=== PATIENT | male | born 1965 | race Caucasian/White ===

== ENCOUNTER 2016-06-03 14:00 | Outpatient (CLI) | payer BC | END 2016-06-03 14:30 | disposition home or self-care (01) | LOC: SLEEP 14:00 | PROVIDERS: ATTEND Internal Medicine Cardiovascular Disease | DX: G47.33 Obstructive sleep apnea (adult) (pediatric) (principal) ==

== ENCOUNTER → 2016-06-03 | Outpatient (CLI) | payer BC ==
--- NOTE | 2016-06-07 14:06 | ECHOCARDIOGRAPHY REPORT ---
DATE OF SERVICE: 06/03/2016 TEST DATE: 06/03/16 MEASUREMENTS: LVID end diastolic 4.5. IVS thickness 1.2. LVPW thickness 1.2. Left atrial diameter 4.0. Ejection fraction 60%. FINDINGS: 1. Technical quality is good. 2. The left ventricle is normal in size with mild left ventricular hypertrophy noted diffusely. Systolic function appears to be normal. Estimated ejection fraction is 60%. 3. The left atrium is mildly dilated. No clot or thrombus were seen within the left atrium. 4. The right atrium and right ventricle are normal in size. No clot or thrombus were seen within the right side. 5. Mitral valve is normal in morphology with mild mitral regurgitation noted by color Doppler flow. No mitral valve prolapse. No mitral valve stenosis. 6. Aortic valve is trileaflet with normal opening and closing pattern. No significant aortic stenosis or regurgitation was seen. 7. Tricuspid valve is normal in morphology with mild tricuspid regurgitation noted by color Doppler flow. Doppler echo of the tricuspid valve estimated pulmonary artery pressure of 25 plus right atrial pressure. 8. Pulmonic valve is functioning normally. 9. No pericardial effusion. CONCLUSION: 1. Normal left ventricular size and systolic function. Estimated ejection fraction is 60%. 2. Mild mitral and tricuspid regurgitation. 3. Estimated pulmonary artery pressure of 30-35 mmHg. 4. Mildly dilated left atrium. Job ID: [id number] DocumentID: [id number] Dictated Date: 06/07/2016 10:04:45 Entry Driver Operator Date: 06/07/2016 10:33:54 Dictated By: BESSY HERNANDEZ MD
== END ==
LOC: CARD 14:44
PROVIDERS: ATTEND Physician Assistant
DX: I48.0 Paroxysmal atrial fibrillation (principal); Q21.1 Atrial septal defect; I10 Essential (primary) hypertension; R06.02 Shortness of breath
CPT/HCPCS: 93306

== ENCOUNTER → 2016-11-24 | Day surgery (SDC) | payer BC ==
[~2016-11-24] MED LIST: APIX5TAB PO; CLON0.252 PO; DILT180T9 PO; DRON400T2 PO; DULO60CA58 PO; FISH1CAP15 PO; METO-274 PO; MULT-1061 PO
--- OUTSIDE RECORDS SUMMARY | 2016-11-24 06:59 | XMS REPORT ---
Author Author DANYELLE SERRANO Organization [employer] Address Unknown Phone Unavailable Care Team Providers Care Rental Car Porter Name Role Phone DANYELLE SERRANO Unavailable Allergies No Known Allergies Problems Problem Type Condition Code Onset Dates Condition Status Problem Generalized anxiety disorder 300.02 Active Problem Major depressive disorder, recurrent episode, in partial or unspecified remission 296.35 Active Problem Major depressive disorder, recurrent episode, in full remission 296.36 Active Problem Other general medical examination for administrative purposes V70.3 Active Problem Major depressive disorder, single episode in full remission 296.26 Active Medications Medication Code System Code Instructions Start Date End Date Status Dosage Clonazepam [facility] [address]-18 0.5 MG Orally 2 times a day Jan 17, 2014 1 tablet Results No Known Results Summary Purpose [employer] Submission
--- OUTSIDE RECORDS SUMMARY | 2016-11-24 06:59 | XMS REPORT ---
Author Author DANYELLE SERRANO [facility] [employer] Address Unknown Phone Unavailable Care Team Providers Care Fire Control Mechanic Name Role Phone DANYELLE SERRANO Unavailable Allergies, Adverse Reactions, Alerts Substance Reaction Event Type Penicillin V Potassium hives Drug Allergy strawberrys hives Non Drug Allergy Problems Problem Type Condition Code Onset Dates Condition Status Problem Generalized anxiety disorder 300.02 Active Problem Major depressive disorder, recurrent episode, in partial or unspecified remission 296.35 Active Problem Major depressive disorder, recurrent episode, in full remission 296.36 Active Assessment TRINIDAD (generalized anxiety disorder) F41.1 Active Assessment Major depression, recurrent, full remission F33.42 Active Problem Other general medical examination for administrative purposes V70.3 Active Problem Major depressive disorder, single episode in full remission 296.26 Active Medications Medication Code System Code Instructions Start Date End Date Status Dosage Aspirin [facility] [address]-00 325 MG Orally Twice a day Jan 17, 2014 1 Tablet by Oral route 1 time per day Clonazepam [facility]AM[facility] [address]-82 0.5 MG Orally 2 times a day Jan 17, 2014 1 tablet Metoprolol Succinate ER [facility]AMED [facility] [address]-41 100 MG Orally Once a day 1 tablet Multivitamin [facility] NAMED [facility] [address]42[address] Jan 17, 2014 1 Tablet by Oral route 1 time per day Coenzyme Q10 [facility] [address] 100 MG Orally Once a day April 16, 2014 1 capsule Diltiazem HCl ER [facility] NAMED [facility] [address]-59 180 MG Orally Once a day 1 capsule on an empty stomach in the morning Cymbalta [facility] [address]-78 60 MG Orally Once a day April 16, 2014 1 capsule Multaq [facility] NAM[facility] [address]-03 400 MG Orally Twice a day 1 tablet with meals Fish Oil [facility] NAMED [facility] [address]-09 360-1,200 mg Jan 17, 2014 1 Capsule by Oral route 1 time per day Procedures Procedure Coding System Code Date Office Visit, Est Pt., Level 3 CPT-4 58165 Nov 19, 2014 Vital Signs Date/Time: Nov 19, 2014 Cardiac Monitoring Heart Rate 72 bpm Weight 225 lbs Height 68 in BMI 34.21 Index Blood Pressure Diastolic 80 mmHg Blood Pressure Systolic 125 mmHg Results No Known Results Summary Purpose [employer] Submission
--- OUTSIDE RECORDS SUMMARY | 2016-11-24 06:59 | XMS REPORT ---
Author Author LUIS ALBERTO ARRIAGA [facility] eClinicalWorks Address Unknown Phone Unavailable Care Team Providers Care Platform Supervisor Name Role Phone LUIS ALBERTO ARRIAGA CP Unavailable Allergies No Known Allergies Problems Problem Type Condition Code Onset Dates Condition Status Problem Generalized anxiety disorder 300.02 Active Problem Major depressive disorder, recurrent episode, in partial or unspecified remission 296.35 Active Problem Major depressive disorder, recurrent episode, in full remission 296.36 Active Assessment Major depression, recurrent, full remission F33.42 Active Problem Other general medical examination for administrative purposes V70.3 Active Problem Major depressive disorder, single episode in full remission 296.26 Active Medications Medication Code System Code Instructions Start Date End Date Status Dosage Clonazepam [facility] [address]-90 0.25 MG Orally 2 times a day prn anxiety Jan 17, 2014 1 tablet Results No Known Results Summary Purpose [employer] Submission
--- OUTSIDE RECORDS SUMMARY | 2016-11-24 06:59 | XMS REPORT ---
Author Author TAN WREN [facility] e[employer] Address Unknown Phone Unavailable Care Team Providers Care Materials And Processes Manager Name Role Phone TAN WREN Unavailable Allergies, Adverse Reactions, Alerts Substance Reaction Event Type Penicillin V Potassium hives Drug Allergy strawberrys hives Non Drug Allergy Problems Problem Type Condition Code Onset Dates Condition Status Problem Generalized anxiety disorder 300.02 Active Problem Major depressive disorder, recurrent episode, in partial or unspecified remission 296.35 Active Problem Major depressive disorder, recurrent episode, in full remission 296.36 Active Assessment Major depressive disorder, recurrent, in full remission F33.42 Active Assessment Generalized anxiety disorder F41.1 Active Problem Other general medical examination for administrative purposes V70.3 Active Problem Major depressive disorder, single episode in full remission 296.26 Active Medications Medication Code System Code Instructions Start Date End Date Status Dosage Multivitamin [facility] [address] Jan 17, 2014 1 Tablet by Oral route 1 time per day Aspirin [facility] [address]-55 325 MG Orally Twice a day Jan 17, 2014 1 Tablet by Oral route 1 time per day Toprol XL [facility] [address]-09 50 MG Orally Once a day April 17, 2013 take 2 tablets Multaq [facility] [address]-11 400 MG Orally Twice a day 1 tablet with meals Clonazepam [facility] [address]-63 0.5 MG Orally 2 times a day Jan 17, 2014 1 tablet Fish Oil [facility] [address]-05 360-1,200 mg Jan 17, 2014 1 Capsule by Oral route 1 time per day Metoprolol Succinate ER [facility] [address]-39 100 MG Orally Once a day 1 tablet Micardis [facility] [address]-67 80 MG Orally Once a day 1 tablet Diltiazem HCl ER [facility] [address]-29 180 MG Orally Once a day 1 capsule on an empty stomach in the morning Cymbalta [facility] [address]-35 60 MG Orally Once a day April 16, 2014 1 capsule Coenzyme Q10 [facility] [address] 100 MG Orally Once a day April 16, 2014 1 capsule Procedures Procedure Coding System Code Date Office Visit, Cristhian Pt., Level 3 CPT-4 01732 Feb 20, 2015 Vital Signs Date/Time: Feb 20, 2015 Cardiac Monitoring Heart Rate 64 bpm Weight 233.0 lbs Height 68 in BMI 35.42 Index Blood Pressure Diastolic 84 mmHg Blood Pressure Systolic 130 mmHg Results No Known Results Summary Purpose [employer]ClinicalWorks Submission
--- OUTSIDE RECORDS SUMMARY | 2016-11-24 06:59 | XMS REPORT ---
Author Author DAX Mae [facility] Address [address] [place] [address] Care Team Providers Care Nutritional Services Host Name Role Phone DAX Mae Unavailable PROBLEMS Type Condition ICD9-CM Code [id number] Code Onset Dates Condition Status SNOMED Code Problem Major depressive disorder, recurrent episode, in full remission 296.36 Active 32233301 Problem Generalized anxiety disorder 300.02 Active 27441283 Problem Major depressive disorder, single episode in full remission 296.26 Active 87013630 Problem Major depressive disorder, recurrent episode, in partial or unspecified remission 296.35 Active 16757691 Problem Other general medical examination for administrative purposes V70.3 Active 01910641 ALLERGIES Unknown Allergies SOCIAL HISTORY No smoking Hx information available PLAN OF CARE VITAL SIGNS MEDICATIONS Medication Instructions Dosage Frequency Start Date End Date Duration Status Clonazepam 0.25 MG Orally 2 times a day prn anxiety 1 tablet Jan, Active RESULTS No Results PROCEDURES No Known procedures IMMUNIZATIONS No Known Immunizations
--- OUTSIDE RECORDS SUMMARY | 2016-11-24 06:59 | XMS REPORT ---
Author Author Tu DAX [facility] Address [address] [place] [address] Care Team Providers Care Paper Bag Making Machinist Name Role Phone [email or web address] Unavailable PROBLEMS Type Condition ICD9-CM Code GMP69-CT Code Onset Dates Condition Status SNOMED Code Problem Major depressive disorder, single episode in full remission 296.26 Active 04124761 Problem Major depressive disorder, recurrent episode, in partial or unspecified remission 296.35 Active 16639319 Problem Other general medical examination for administrative purposes V70.3 Active 16243857 Problem Major depressive disorder, recurrent episode, in full remission 296.36 Active 29772484 Problem Generalized anxiety disorder 300.02 Active 65331827 ALLERGIES Unknown Allergies SOCIAL HISTORY No smoking Hx information available PLAN OF CARE Activity Details Follow Up 6 Months Reason: VITAL SIGNS Height 68 in 2016-03-04 Weight 231 lbs 2016-03-04 Heart Rate 68 bpm 2016-03-04 Respiratory Rate 18 2016-03-04 BMI 35.12 kg/m2 2016-03-04 Blood pressure systolic 132 mmHg 2016-03-04 Blood pressure diastolic 80 mmHg 2016-03-04 MEDICATIONS Medication Instructions Dosage Frequency Start Date End Date Duration Status Aspirin 325 MG Orally Twice a day 1 Tablet by Oral route 1 time per day 12h Jan, Active Multivitamin 1 Tablet by Oral route 1 time per day Jan, Active Fish Oil 360-1,200 mg 1 Capsule by Oral route 1 time per day Jan, Active Toprol XL 50 MG Orally Once a day take 2 tablets 24h Apr, Active Diltiazem HCl ER 180 MG Orally Once a day 1 capsule on an empty stomach in the morning 24h Active Clonazepam 0.25 MG Orally 2 times a day prn anxiety 1 tablet Jan, 30 days Active Cymbalta 60 MG Orally Once a day 1 capsule 24h Apr, 30 days Active Multaq 400 MG Orally Twice a day 1 tablet with meals 12h Active Metoprolol Succinate ER 100 MG Orally Once a day 1 tablet 24h Active RESULTS No Results PROCEDURES Procedure Date Ordered Related Diagnosis Body Site Office Visit, Est Pt., Level 3 Mar 04, 2016 IMMUNIZATIONS No Known Immunizations
--- OUTSIDE RECORDS SUMMARY | 2016-11-24 06:59 | XMS REPORT ---
Author Author DAX Mae [facility] Address [address] [place] [address] Care Team Providers Care Bundle Clerk Name Role Phone DAX Mae Unavailable PROBLEMS Type Condition ICD9-CM Code [id number] Code Onset Dates Condition Status SNOMED Code Problem Major depressive disorder, recurrent episode, in full remission 296.36 Active 79872440 Problem Generalized anxiety disorder 300.02 Active 21327849 Problem Major depressive disorder, single episode in full remission 296.26 Active 24691421 Problem Major depressive disorder, recurrent episode, in partial or unspecified remission 296.35 Active 54950345 Problem Other general medical examination for administrative purposes V70.3 Active 48060640 ALLERGIES Unknown Allergies SOCIAL HISTORY No smoking Hx information available PLAN OF CARE VITAL SIGNS MEDICATIONS Unknown Medications RESULTS No Results PROCEDURES No Known procedures IMMUNIZATIONS No Known Immunizations
--- OUTSIDE RECORDS SUMMARY | 2016-11-24 07:00 | XMS REPORT ---
Author Author DAX SANTIAGO [employer] Address Unknown Phone Unavailable Care Team Providers Care Cook Station Name Role Phone DAX SANTIAGO CP Unavailable Allergies, Adverse Reactions, Alerts Substance Reaction [...] Major depression, recurrent, full remission F33.42 Active Assessment TRINIDAD (generalized anxiety disorder) F41.1 Active Problem Other general medical examination for administrative purposes V70.3 Active Problem Major depressive disorder, single episode in full remission 296.26 Active Medications Medication Code System Code Instructions Start Date End Date Status Dosage Multaq [facility] [address]-93 400 MG Orally Twice a day 1 tablet with meals Multivitamin [facility] [address] Jan 17, 2014 1 Tablet by Oral route 1 time per day Cymbalta [facility] [address]-89 60 MG Orally Once a day April 16, 2014 1 capsule Aspirin [facility] [address]-91 325 MG Orally Twice a day Jan 17, 2014 1 Tablet by Oral route 1 time per day Toprol XL [facility] [address]-72 50 MG Orally Once a day April 17, 2013 take 2 tablets Metoprolol Succinate ER [facility] [address]-03 100 MG Orally Once a day 1 tablet Clonazepam [facility] [address]-90 0.25 MG Orally 2 times a day prn anxiety Jan 17, 2014 1 tablet Fish Oil [facility] [address]-95 360-1,200 mg Jan 17, 2014 1 Capsule by Oral route 1 time per day Diltiazem HCl ER [facility] [address]-53 180 MG Orally Once a day 1 capsule on an empty stomach in the morning Procedures Procedure Coding System Code Date Office Visit, Est Pt., Level 4 CPT-4 09699 September 02, 2015 Vital Signs Date/Time: September 02, 2015 Cardiac Monitoring Heart Rate 59 bpm Weight 232.4 lbs Height 68 in Blood Pressure Diastolic 85 mmHg Blood Pressure Systolic 124 mmHg Results No Known Results Summary Purpose eClinicalWorks Submission
--- OUTSIDE RECORDS SUMMARY | 2016-11-24 07:00 | XMS REPORT | Continuity of Care Document ---
Author Author [facility] Address Unknown Phone Unavailable Allergies Active Description Code Type Severity Reaction Onset Reported/Identified Relationship to Patient Clinical Status Yes Penicillins Drug Allergy 08/24/2010 Yes Penicillins Drug Allergy N/A N/A 08/24/2010 Medications Problems Date Dx Coded Attending Type Code Diagnosis Diagnosed By 05/13/2010 MIRIAN TROTTER DO 296.30 MAJOR DEPRESSIVE AFFECTIVE DISORDER RECURRENT EPISODE UNSPECIFIED DEGREE 05/13/2010 296.30 MAJOR DEPRESSIVE AFFECTIVE DISORDER RECURRENT EPISODE UNSPECIFIED DEGREE 05/13/2010 MIRIAN TROTTER DO 296.30 MAJOR DEPRESSIVE AFFECTIVE DISORDER RECURRENT EPISODE UNSPECIFIED DEGREE 05/13/2010 LUIS ALBERTO ARRIAGA MD 296.30 MAJOR DEPRESSIVE AFFECTIVE DISORDER RECURRENT EPISODE UNSPECIFIED DEGREE 05/13/2010 DANYELLE SERRANO APRN 296.30 MAJOR DEPRESSIVE AFFECTIVE DISORDER RECURRENT EPISODE UNSPECIFIED DEGREE 05/13/2010 296.30 MAJOR DEPRESSIVE AFFECTIVE DISORDER RECURRENT EPISODE UNSPECIFIED DEGREE 05/13/2010 DANYELLE SERRANO APRN 296.30 MAJOR DEPRESSIVE AFFECTIVE DISORDER RECURRENT EPISODE UNSPECIFIED DEGREE 06/03/2010 MIRIAN TROTTER DO 296.32 MO DEPRESSIVE RECURRENT MODERATE 06/03/2010 296.32 MO DEPRESSIVE RECURRENT MODERATE 06/03/2010 MIRIAN TROTTER DO 296.32 MO DEPRESSIVE RECURRENT MODERATE 06/03/2010 LUIS ALBERTO ARRIAGA MD 296.32 MO DEPRESSIVE RECURRENT MODERATE 06/03/2010 DANYELLE SERRANO APRN 296.32 MO DEPRESSIVE RECURRENT MODERATE 06/03/2010 296.32 MO DEPRESSIVE RECURRENT MODERATE 06/03/2010 DANYELLE SERRANO APRN 296.32 MO DEPRESSIVE RECURRENT MODERATE 08/24/2010 MIRIAN TROTTER DO 309.81 AN PTSD 08/24/2010 309.81 AN PTSD 08/24/2010 MIRIAN TROTTER DO 309.81 AN PTSD 08/24/2010 LUIS ALBERTO ARRIAGA MD 309.81 AN PTSD 08/24/2010 DANYELLE SERRANO APRN 309.81 AN PTSD 08/24/2010 309.81 AN PTSD 08/24/2010 DANYELLE SERRANO APRN 309.81 AN PTSD 09/02/2010 MIRIAN TROTTER DO 300.00 AN ANXIETY UNSPEC 09/02/2010 MIRIAN TROTTER DO 307.47 SI DYSSOMNIA NOS 09/02/2010 300.00 AN ANXIETY UNSPEC 09/02/2010 307.47 SI DYSSOMNIA NOS 09/02/2010 MIRIAN TROTTER DO 300.00 AN ANXIETY UNSPEC 09/02/2010 MRIIAN TROTTER DO 307.47 SI DYSSOMNIA NOS 09/02/2010 LUIS ALBERTO ARRIAGA MD 300.00 AN ANXIETY UNSPEC 09/02/2010 LUIS ALBERTO ARRIAGA MD 307.47 SI DYSSOMNIA NOS 09/02/2010 DANYELLE SERRANO APRN 300.00 AN ANXIETY UNSPEC 09/02/2010 DANYELLE SERRANO APRN 307.47 SI DYSSOMNIA NOS 09/02/2010 300.00 AN ANXIETY UNSPEC 09/02/2010 307.47 SI DYSSOMNIA NOS 09/02/2010 DANYELLE SERRANO APRN 300.00 AN ANXIETY UNSPEC 09/02/2010 DANYELLE SERRANO APRN 307.47 SI DYSSOMNIA NOS 08/03/2011 MIRIAN TROTTER DO V70.3 OTHER GENERAL MEDICAL EXAMINATION FOR ADMINISTRATIVE PURPOSES 08/03/2011 V70.3 OTHER GENERAL MEDICAL EXAMINATION FOR ADMINISTRATIVE PURPOSES 08/03/2011 MIRIAN TROTTER DO V70.3 OTHER GENERAL MEDICAL EXAMINATION FOR ADMINISTRATIVE PURPOSES 08/03/2011 LUIS ALBERTO ARRIAGA MD V70.3 OTHER GENERAL MEDICAL EXAMINATION FOR ADMINISTRATIVE PURPOSES 08/03/2011 DANYELLE SERRANO APRN V70.3 OTHER GENERAL MEDICAL EXAMINATION FOR ADMINISTRATIVE PURPOSES 08/03/2011 V70.3 OTHER GENERAL MEDICAL EXAMINATION FOR ADMINISTRATIVE PURPOSES 08/03/2011 DANYELLE SERRANO APRN V70.3 OTHER GENERAL MEDICAL EXAMINATION FOR ADMINISTRATIVE PURPOSES 09/08/2011 MIRIAN TROTTER DO 296.26 MO DEPRESSIVE SINGLE IN FULL REMISSION 09/08/2011 296.26 MO DEPRESSIVE SINGLE IN FULL REMISSION 09/08/2011 MIRIAN TROTTER DO 296.26 MO DEPRESSIVE SINGLE IN FULL REMISSION 09/08/2011 LUIS ALBERTO ARRIAGA MD 296.26 MO DEPRESSIVE SINGLE IN FULL REMISSION 09/08/2011 DANYELLE SERRANO APRN 296.26 MO DEPRESSIVE SINGLE IN FULL REMISSION 09/08/2011 296.26 MO DEPRESSIVE SINGLE IN FULL REMISSION 09/08/2011 DANYELLE SERRANO APRN 296.26 MO DEPRESSIVE SINGLE IN FULL REMISSION 04/17/2013 LUIS ALBERTO ARRIAGA MD 296.35 MO DEPRESSIVE RECURRENT IN PART OR UNSPECIFIED REMISSION 04/17/2013 DANYELLE SERRANO APRN 296.35 MO DEPRESSIVE RECURRENT IN PART OR UNSPECIFIED REMISSION 04/17/2013 DANYELLE SERRANO APRN 296.35 MO DEPRESSIVE RECURRENT IN PART OR UNSPECIFIED REMISSION 04/17/2013 BESSY HERNANDEZ MD Ot 278.00 OBESITY, NOS 04/17/2013 BESSY HERNANDEZ MD Ot 305.1 TOBACCO USE DISORDER 04/17/2013 BESSY HERNANDEZ MD Ot 401.9 HYPERTENSION NOS 04/17/2013 BESSY HERNANDEZ MD Ot 745.5 SECUNDUM ATRIAL SEPT DEF 04/17/2013 BESSY HERNANDEZ MD Ot 780.2 SYNCOPE AND COLLAPSE 04/17/2013 BESSY HERNANDEZ MD Ot 785.1 PALPITATIONS 04/17/2013 BESSY HERNANDEZ MD Ot 786.05 SHORTNESS OF BREATH 04/17/2013 EBSSY HERNANDEZ MD Ot 786.09 RESPIRATORY ABNORM NEC 04/17/2013 BESSY HERNANDEZ MD Ot 786.50 CHEST PAIN NOS 01/17/2014 DANYELLE SERRANO APRN 300.02 AN GEN ANXIETY 08/26/2014 Ot 278.00 08/26/2014 Ot 305.1 08/26/2014 Ot 401.9 08/26/2014 Ot 745.5 08/26/2014 Ot 780.2 08/26/2014 Ot 785.1 08/26/2014 Ot 786.05 08/26/2014 Ot 786.09 08/26/2014 Ot 786.50 09/09/2014 Ot 278.00 09/09/2014 Ot 305.1 09/09/2014 Ot 401.9 09/09/2014 Ot 745.5 09/09/2014 Ot 780.2 09/09/2014 Ot 785.1 09/09/2014 Ot 786.05 09/09/2014 Ot 786.09 09/09/2014 Ot 786.50 09/11/2014 MICHELINE ISSA Ot 401.9 09/11/2014 MICHELINE ISSA Ot 745.5 09/11/2014 MICHELINE ISSA Ot 785.1 09/11/2014 MICHELINE ISSA Ot 786.50 06/23/2015 Ot 278.00 OBESITY, NOS 06/23/2015 Ot 305.1 TOBACCO USE DISORDER 06/23/2015 Ot 401.9 HYPERTENSION NOS 06/23/2015 Ot 745.5 SECUNDUM ATRIAL SEPT DEF 06/23/2015 Ot 780.2 SYNCOPE AND COLLAPSE 06/23/2015 Ot 785.1 PALPITATIONS 06/23/2015 Ot 786.05 SHORTNESS OF BREATH 06/23/2015 Ot 786.09 RESPIRATORY ABNORM NEC 06/23/2015 Ot 786.50 CHEST PAIN NOS 06/23/2015 MICHELINE ISSA Ot 401.9 HYPERTENSION NOS 06/23/2015 MICHELINE ISSA Ot 745.5 SECUNDUM ATRIAL SEPT DEF 06/23/2015 MICHELINE ISSA Ot 785.1 PALPITATIONS 06/23/2015 MICHELINE ISSA Ot 786.50 CHEST PAIN NOS 05/19/2016 Ot 278.00 OBESITY, NOS 05/19/2016 Ot 305.1 TOBACCO USE DISORDER 05/19/2016 Ot 401.9 HYPERTENSION NOS 05/19/2016 Ot 745.5 SECUNDUM ATRIAL SEPT DEF 05/19/2016 Ot 780.2 SYNCOPE AND COLLAPSE 05/19/2016 Ot 785.1 PALPITATIONS 05/19/2016 Ot 786.05 SHORTNESS OF BREATH 05/19/2016 Ot 786.09 RESPIRATORY ABNORM NEC 05/19/2016 Ot 786.50 CHEST PAIN NOS 05/19/2016 MICHELINE ISSA Ot 401.9 HYPERTENSION NOS 05/19/2016 MICHELINE ISSA Ot 745.5 SECUNDUM ATRIAL SEPT DEF 05/19/2016 MICHELINE ISSA Ot 785.1 PALPITATIONS 05/19/2016 MICHELINE ISSA Ot 786.50 CHEST PAIN NOS 06/03/2016 DAVID GUPTA, BESSY Bravo Ot G47.33 OBSTRUCTIVE SLEEP APNEA (ADULT) (PEDIATR 06/03/2016 Ot 278.00 OBESITY, NOS 06/03/2016 Ot 305.1 TOBACCO USE DISORDER 06/03/2016 Ot 401.9 HYPERTENSION NOS 06/03/2016 Ot 745.5 SECUNDUM ATRIAL SEPT DEF 06/03/2016 Ot 780.2 SYNCOPE AND COLLAPSE 06/03/2016 Ot 785.1 PALPITATIONS 06/03/2016 Ot 786.05 SHORTNESS OF BREATH 06/03/2016 Ot 786.09 RESPIRATORY ABNORM NEC 06/03/2016 Ot 786.50 CHEST PAIN NOS 06/03/2016 MICHELINE ISSA Ot 401.9 HYPERTENSION NOS 06/03/2016 MICHELINE ISSA Ot 745.5 SECUNDUM ATRIAL SEPT DEF 06/03/2016 MICHELINE ISSA Ot 785.1 PALPITATIONS 06/03/2016 MICHELINE ISSA Ot 786.50 CHEST PAIN NOS 06/04/2016 MICHELINE ISSA Ot I10 ESSENTIAL (PRIMARY) HYPERTENSION 06/04/2016 MICHELINE ISSA Ot I48.0 PAROXYSMAL ATRIAL FIBRILLATION 06/04/2016 MICHELINE ISSA Ot Q21.1 ATRIAL SEPTAL DEFECT 06/04/2016 MICHELINE ISSA Ot R06.02 SHORTNESS OF BREATH 06/04/2016 DAVID GUPTA, BESSY Bravo Ot G47.33 OBSTRUCTIVE SLEEP APNEA (ADULT) (PEDIATR 06/16/2016 MICHELINE ISSA Ot I10 ESSENTIAL (PRIMARY) HYPERTENSION 06/16/2016 MICHELINE ISSA Ot I48.0 PAROXYSMAL ATRIAL FIBRILLATION 06/16/2016 MICHELINE ISSA Ot Q21.1 ATRIAL SEPTAL DEFECT 06/16/2016 MICHELINE ISSA Ot R06.02 SHORTNESS OF BREATH Procedures Code [place] [address] PSYCH PHARM MGMT 02/10/2012 Results Encounters ACCT No. Visit Date/Time Discharge Status Pt. Type Provider Facility Loc./Unit Complaint [id number] 01/17/2014 09:12:00 01/17/2014 23: 59:59 LISA Outpatient DANYELLE SERRANO APRN [id number] 10/18/2013 09:03:00 10/18/2013 23: 59:59 CLS Outpatient DANYELLE SERRANO APRN [id number] 04/17/2013 14:05:00 04/17/2013 23: 59:59 CLS Outpatient LUIS ALBERTO ARRIAGA MD [id number] 11/04/2012 09:49:00 11/04/2012 23: 59:59 CLS Outpatient MIRIAN TROTTER DO [id number] 01/24/2012 11:16:00 01/24/2012 23: 59:59 [place] [id number] 09/08/2011 10:53:00 09/08/2011 23: 59:59 CLS Outpatient [id number] 06/24/2012 13:27:00 Document Registration [id number] 06/03/2016 14:44:00 2016 23:59:59 CLS Outpatient MICHELINE ISSA [facility] CARD I48.0 [id number] 06/03/2016 14:00:00 2016 14:30:00 DIS Outpatient BESSY HERNANDEZ MD [facility] SLEEP G47.33 [id number] 09/09/2014 11:45:00 2014 23:59:59 CLS Outpatient MICHELINE ISSA [facility] CARD ASD,CP,HTN,PALPITATIONS [id number] 01/17/2013 09:22:00 2013 00:01:00 DIS Outpatient BESSY HERNANDEZ MD [facility] CARD CHEST PAIN,DYSPNEA,PALPITATION, SYNCOPE [id number] 04/18/2013 09:00:00 Document Registration
--- NOTE | 2016-11-24 10:11 | Anesthesia-Procedure Note ---
Procedure Start/Stop Time Date of Procedure: Nov 24, 2016 Start Time: 09:43 Stop Time: 10:02 Procedures/Interventions Procedures Called to warehouse laborer to sedate patient for BLU procedure. Chart reviewed and vital signs monitored thru out, see Nurses notes for vitals. A total of 100mcg of fentanyl and 150 mg of propofol was given thru out procedure. Patient tolerated well, vital signs stable with patent airway. Care returned to warehouse laborer staff at procedure end. ASA 3, MP 3, TMD-2. KAVITHA TAMEZ CRNA Nov 24, 2016 10:11
== END | disposition home or self-care (01) ==
LOC: SDC 06:56
PROVIDERS: ATTEND Internal Medicine Cardiovascular Disease
DX: Z53.9 Procedure and treatment not carried out, unspecified reason (principal)

== ENCOUNTER → 2016-12-08 | Outpatient (CLI) | payer BC ==
[~2016-12-08] VITALS: Ht 170.2 cm; Wt 103.4 kg
[~2016-12-08] MED LIST changes: +CATHETER FLUSH 10 ML SYR IV PRN; +REGADENOSON 0.4 MG/5 ML SYR (LEXISCAN) IV ONE; +meTOprolol 5 MG/5 ML (LOPRESSOR) VIAL IV ONE; +meTOprolol 5 MG/5 ML (LOPRESSOR) VIAL ONE
[2016-12-08 14:03] VITALS: BP 139/95
[2016-12-08 14:05] VITALS: BP 140/93
[2016-12-08 14:09] VITALS: BP 143/106
--- NOTE | 2016-12-09 07:20 | STRESS TEST ---
DATE OF SERVICE: 12/08/2016 LEXISCAN MYOVIEW STRESS TEST REPORT Baseline heart rate is 132. Baseline blood pressure is 120/70. Baseline EKG is atrial fibrillation with nonspecific T-wave abnormality. In summary, the patient received 10.21 mCi of technetium-99 Myoview and the resting images were obtained and then the patient received 0.4 mg of Lexiscan followed by 29.6 mCi of technetium-99 Myoview. At the end of the test, due to the tachycardia, the patient was given IV Lopressor. The resting and stressed images were reviewed and compared in the short axis, horizontal long axis, and vertical long axis views. Review of the images showed mild decreased uptake at the mid to apical anterolateral wall, which appeared to be fixed, no significant ischemia was noted. SSS is 6, SDS 1. TID value 1.21. On the gated images, the left ventricle appeared to be normal size with normal contractility, calculated ejection fraction 54%, gated images are unreliable due to underlying atrial fibrillation. CONCLUSION: 1. The patient tolerated Lexiscan well. 2. Baseline atrial fibrillation persisted throughout the test. 3. Mild decreased uptake at the mid to apical anterolateral wall, which appeared to be fixed, no significant ischemia was noted. 4. TID value is in the upper limits of 1.21. 5. Normal left ventricular size with normal contractility. Calculated ejection fraction 54%, gated images are unreliable due to underlying atrial fibrillation. Job ID: [id number] DocumentID: [id number] Dictated Date: 12/08/2016 17:46:59 Early Education Teacher Date: 12/08/2016 22:38:56 Dictated By: BESSY HERNANDEZ MD
== END ==
LOC: CARD 11:58
PROVIDERS: ATTEND Internal Medicine Cardiovascular Disease
DX: I48.0 Paroxysmal atrial fibrillation (principal); I10 Essential (primary) hypertension; R07.89 Other chest pain; Q21.1 Atrial septal defect
CPT/HCPCS: 78452; 93017

== ENCOUNTER 2017-03-28 14:40 | Inpatient (IN) | payer BC ==
[2017-03-28] VITALS (10 sets, daily range): BP systolic 124–181; BP diastolic 79–123
[~2017-03-28] VITALS: Ht 170.2 cm; Wt 103.1 kg
[~2017-03-28 14:40] MED LIST changes: -CATHETER FLUSH 10 ML SYR IV PRN; -METO-274 PO; +METO-395 PO; -REGADENOSON 0.4 MG/5 ML SYR (LEXISCAN) IV ONE; -meTOprolol 5 MG/5 ML (LOPRESSOR) VIAL IV ONE; -meTOprolol 5 MG/5 ML (LOPRESSOR) VIAL ONE
[2017-03-28] MEDS ORDERED: SOTA120T PO (15:55)
[2017-03-28] MEDS ORDERED: OMEG-160 PO (15:55)
[2017-03-28] MEDS ORDERED: METO-370 PO (15:55)
[2017-03-28] MEDS ORDERED: ACETAMINOPHEN 325 MG TABLET/CAPLET (TYLENOL) PO NR (16:45)
[2017-03-28] MEDS: APIXABAN 5 MG (ELIQUIS) TABLET PO SCH (20:58)
[2017-03-28] MEDS: clonazePAM 0.5 MG (KlonoPIN) TAB PO SCH (20:58)
[2017-03-28] MEDS: SOTALOL 80 MG (BETAPACE) TAB PO SCH (20:59)
[2017-03-28] MEDS ORDERED: NON-FORMULARY MEDICATION 1 EA EA (Clonazepam 0.25 MG) PO SCH (21:00)
[2017-03-29] VITALS (23 sets, daily range): BP systolic 99–151; BP diastolic 67–102
[2017-03-29 04:59] LABS: HEMOGLOBIN 15.3 G/DL (13.3-17.7); MEAN PLATELET VOLUME 10.2 FL (7.4-10.4); RED BLOOD COUNT 4.91 10^6/uL (4.35-5.85); RED CELL DISTRIBUTION WIDTH 13.6 % (10.0-14.5); WHITE BLOOD COUNT 4.5 10^3/uL (4.3-11.0)
[2017-03-29 05:14] LABS: ALANINE AMINOTRANSFERASE 79 U/L (0-55); ALBUMIN 3.9 GM/DL (3.2-4.5); ALKALINE PHOSPHATASE 81 U/L (40-136); BUN/CREATININE RATIO 10; CALCIUM 9.2 MG/DL (8.5-10.1); CARBON DIOXIDE 27 MMOL/L (21-32); CHLORIDE 103 MMOL/L (98-107); CREATININE SERUM 0.82 MG/DL (0.60-1.30); GFR ESTIMATED > 60; GLUCOSE 104 MG/DL (70-105); MAGNESIUM 2.2 MG/DL (1.8-2.4); PHOSPHORUS 3.8 MG/DL (2.3-4.7); POTASSIUM 3.4 MMOL/L (3.6-5.0); SODIUM 143 MMOL/L (135-145); TOTAL PROTEIN 7.1 GM/DL (6.4-8.2)
[2017-03-29] MEDS: POTASSIUM CL 10MEQ/50ML IVPB 50 ML IV SCH ×3 (05:21→12:12)
[2017-03-29] MEDS: MAGNESIUM 1 GM/100 ML IVPB 100 ML IV SCH (05:21)
[2017-03-29] MEDS: KCL 20 MEQ TAB (K-DUR) PO SCH (05:21)
[2017-03-29] MEDS ORDERED: OMEGA 3 (FISH OIL) 1000 MG CAP PO SCH (07:00)
[2017-03-29] MEDS ORDERED: KCL 10 MEQ TAB (MICRO K) PO NR (08:00)
--- NOTE | 2017-03-29 08:21 | Cardiology History & Physical ---
HPI-Cardiology Cardiology Consultation Date of Consultation 03/29/17 Date of Admission Time Seen by Provider: 08:16 Indication: aFIB HPI Patient is a 51 y/o male with history of PAF, HTN, HLP. Had been following with Dr. Menendez for further management of atrial fibrillation. Underwent BLU and cardioversion done at on 2017 after being initiated on Sotalol. Presented to our office yesterday for follow up. C/o increased fatigue over the past several days. Denies any CP or palpitation. Had EKG done in office revealing atrial fibrillation with HR in the 120's. Patient was admitted to ICU for further management. Upon interviewing the patient, he is denying any CP or dyspnea at this time. Continues to be in atrial fibrillation, although HR is better controlled today. EKG reveals borderline prolonged QT. This is Dr. Johnson, Mr. Rocha is 51 years old gentleman with paroxysmal atrial fibrillation, had multiple cardioversion, has been on sotalol with cardioversion last week, seen in my office yesterday and noted to be in atrial fibrillation with rapid ventricular response, he was admitted to the hospital to increase sotalol dose and possible electrical cardioversion. This morning he was feeling well. Heart rate is better controlled. Denied any chest pain or shortness of breath. No palpitation. PMH-Cardiology Immunizations Up To Date Date of Pneumonia Vaccine: Mar 23, 2017 Date of Influenza Vaccine: Nov 16, 2016 Seasonal Allergies Seasonal Allergies: No Surgeries Yes (Atrial Spetum Defect repair) Respiratory Yes Cardiovascular Yes (Atrial spetum defect) Atrial Fibrillation, Hypertension Neurological No Genitourinary No Gastrointestinal Yes Gastroesophageal Reflux, Hiatal Hernia Musculoskeletal No Endocrine No HEENT No Loss of Vision: Denies Cancer No Psychosocial Yes Anxiety Integumentary No Blood Transfusions No Adverse Rxn to Transfusion: No Social History Patient Social History Marrital Status: Alcohol Use: Occasionally Uses Recreational Drug Use: No Smoking: Never smoker Recent Foreign Travel: No Contact w/other who traveled: No Recent Infectious Disease Expo: Yes Family Hx Significant Family History: No Pertinent Family Hx ROS-Cardiology Review of Systems General: No Chills, No Night Sweats, Fatigue, No Malaise HEENT: No Visual Changes, No Dysphasia Pulmonary: Dyspnea, No Cough Cardiovascular: No: Chest Pain, Palpitations, Paroxysmal Noc. Dyspnea, Edema Gastrointestinal: No: Nausea, Vomiting, Abdominal Pain, Diarrhea, Constipation Genitourinary: No Dysuria, No Frequency Musculoskeletal: No: neck pain, back pain Neurological: No: Weakness, Numbness, Change in speech, Confusion Home Medications & Allergies Allergies: Coded Allergies: Penicillins (Verified Allergy, Unknown, 11/24/16) enalapril (Verified Allergy, Unknown, 11/24/16) Home Medication List Reviewed: Yes Exam-Cardiology Vital Signs Vital Signs Date Time Temp Pulse Resp B/P (MAP) Pulse Ox O2 Delivery O2 Flow Rate FiO2 03/29/17 12:00 97.6 03/29/17 12:00 98 Room Air 03/29/17 12:00 127 13 106/67 (80) Exam General Appearance: Alert, Oriented X3, Cooperative, No Acute Distress HEENT: Atraumatic, PERRLA Respiratory: Clear to Auscultation, Normal Air Movement Cardiovascular: Other (irregularly irregular) Abdominal: Normal Bowel Sounds, Soft, No Tenderness Extremities: No Clubbing, No Cyanosis, No Edema, Normal Pulses Skin: No Rashes, No Significant Lesion Neuro: Normal Gait, Normal Speech, Cranial Nerves 3-12 NL Psych/Mental Status: Mental Status NL, Mood NL Results Labs Labs Laboratory Tests 03/29/17 04:45: White Blood Count 4.5, Red Blood Count 4.91, Hemoglobin 15.3, Hematocrit 42, Mean Corpuscular Volume 86, Mean Corpuscular Hemoglobin 31, Mean Corpuscular Hemoglobin Concent 36, Red Cell Distribution Width 13.6, Platelet Count 184, Mean Platelet Volume 10.2, Sodium Level 143, Potassium Level 3.4L, Chloride Level 103, Carbon Dioxide Level 27, Anion Gap 13, Blood Urea Nitrogen 8, Creatinine 0.82, Estimat Glomerular Filtration Rate > 60, BUN/Creatinine Ratio 10, Glucose Level 104, Calcium Level 9.2, Phosphorus Level 3.8, Magnesium Level 2.2, Total Bilirubin 1.0, Aspartate Amino Transf (AST/SGOT) 54H, Alanine Aminotransferase (ALT/SGPT) 79H, Alkaline Phosphatase 81, Total Protein 7.1, Albumin 3.9 A/P-Cardiology Admission Diagnosis Afib with RVR HTN NATHALIE Obesity Assessment/Plan Atrial fibrillation with RVR- has been following with Dr. Menendez. Most recently , underwent sotalol initiation last week followed by cardioversion done by on March 23, 2017. Return to clinic yesterday for follow up, EKG revealed Afib with HR in the 120's. Patient was admitted to ICU and started on Sotalol 160mg BID. EKG reveals borderline QT prolongation, replace K+, continue to monitor closely. Continue on Eliquis. Hypokalemia, received 40 mEq of potassium. Continue to monitor BMP and magnesium. Hypertension, controlled, continue current medications and continue to monitor. NATHALIE- patient uses CPAP, continue to monitor. Intolerance to angiotensin-converting enzyme inhibitors with cough. Dyspnea, related to the palpitation. Reporting improvement. Continue to monitor. History of atrial septal defect, [place] [address] Garg. History of atrial septal repair, BLU did not show any shunt Tobaccoism, patient chewed tobacco, he was educated and instructed on avoiding any tobacco product. Family history of coronary artery disease. Obesity, patient was educated on weight loss and exercise. This is Dona James PA-C as a scribe for Dr. Johnson. This is Dr. Johnson, I have seen and evaluated Mr. Rocha with Dona, interviewed the patient to perform physical examination, heart rate is irregular , lungs are clear. He is in atrial fibrillation with borderline tachycardia at this time, tolerating sotalol 160 mg twice daily. QT interval appeared to be 501. He was noted to be hypokalemic. Which will be replaced and monitored. I will evaluate metabolic profile and magnesium level in the morning, continue to monitor QT interval. Possible electrical cardioversion if he did not convert spontaneously. Continue on oral anticoagulation. I reviewed the above note and agree with the current scribe. I made few minor modification using Italic Font Clinical Quality Measures DVT/VTE Risk/Contraindication: Risk Factor Score Per Nursin RFS Level Per Nursing on Admit: 4+=Very High DONA BORJAS Mar 29, 2017 08:21 BESSY JOHNSON MD Mar 29, 2017 14:29
[2017-03-29] MEDS ORDERED: NON-FORMULARY MEDICATION 1 EA EA (Duloxetine HCl 60 MG) PO SCH (09:00)
[2017-03-29] MEDS ORDERED: NON-FORMULARY MEDICATION 1 EA EA (Diltiazem HCl (Diltiazem ER) 180 MG) PO SCH (09:00)
[2017-03-29] MEDS ORDERED: KCL 20 MEQ TAB (K-DUR) PO ONE (09:00)
[2017-03-29] MEDS: clonazePAM 0.5 MG (KlonoPIN) TAB PO SCH ×2 (09:06→21:00)
[2017-03-29] MEDS: APIXABAN 5 MG (ELIQUIS) TABLET PO SCH ×2 (09:06→21:00)
[2017-03-29] MEDS: DILTIAZEM 180 MG (CARDIZEM CD) CAP PO SCH (09:07)
[2017-03-29] MEDS: OMEGA 3 (FISH OIL) 1000 MG CAP PO SCH ×3 (09:07→17:24)
[2017-03-29] MEDS: DULoxetine 30 MG (CYMBALTA) CAP PO SCH (09:07)
[2017-03-29] MEDS: SOTALOL 80 MG (BETAPACE) TAB PO SCH ×2 (09:08→21:10)
[2017-03-30] VITALS (24 sets, daily range): BP systolic 108–139; BP diastolic 65–97
[2017-03-30 04:15] LABS: BASOPHILS % (AUTO) 0 % (0-10); EOSINOPHILS # (AUTO) 0.2 10^3/uL (0.0-0.3); EOSINOPHILS % (AUTO) 4 % (0-10); HEMATOCRIT 41 % (40-54); HEMOGLOBIN 14.9 G/DL (13.3-17.7); LYMPHOCYTES % (AUTO) 39 % (12-44); MEAN CORPUSCULAR HEMOGLOBIN 31 PG (25-34); MEAN CORPUSCULAR HGB CONC 36 G/DL (32-36); MEAN CORPUSCULAR VOLUME 86 FL (80-99); MEAN PLATELET VOLUME 10.2 FL (7.4-10.4); MONOCYTES # (AUTO) 0.6 X 10^3 (0.0-1.0); MONOCYTES % (AUTO) 12 % (0-12); NEUTROPHILS # (AUTO) 2.3 X 10^3 (1.8-7.8); NEUTROPHILS % (AUTO) 45 % (42-75); PLATELET COUNT 183 10^3/uL (130-400); RED BLOOD COUNT 4.78 10^6/uL (4.35-5.85); RED CELL DISTRIBUTION WIDTH 13.4 % (10.0-14.5); WHITE BLOOD COUNT 5.1 10^3/uL (4.3-11.0)
[2017-03-30 04:34] LABS: BUN/CREATININE RATIO 11; CALCIUM 9.5 MG/DL (8.5-10.1); CARBON DIOXIDE 28 MMOL/L (21-32); CHLORIDE 105 MMOL/L (98-107); CREATININE SERUM 0.85 MG/DL (0.60-1.30); GFR ESTIMATED > 60; GLUCOSE 102 MG/DL (70-105); MAGNESIUM 2.3 MG/DL (1.8-2.4); PHOSPHORUS 3.9 MG/DL (2.3-4.7); POTASSIUM 3.7 MMOL/L (3.6-5.0); SODIUM 140 MMOL/L (135-145)
[2017-03-30] MEDS: MAGNESIUM 1 GM/100 ML IVPB 100 ML IV SCH (04:45)
[2017-03-30] MEDS: POTASSIUM CL 10MEQ/50ML IVPB 50 ML IV SCH (04:45)
[2017-03-30] MEDS: KCL 20 MEQ TAB (K-DUR) PO SCH (04:46)
[2017-03-30] MEDS: DILTIAZEM 180 MG (CARDIZEM CD) CAP PO SCH (08:24)
[2017-03-30] MEDS: clonazePAM 0.5 MG (KlonoPIN) TAB PO SCH ×2 (08:24→21:14)
[2017-03-30] MEDS: SOTALOL 80 MG (BETAPACE) TAB PO SCH ×2 (08:24→21:55)
[2017-03-30] MEDS: DULoxetine 30 MG (CYMBALTA) CAP PO SCH (08:24)
[2017-03-30] MEDS: OMEGA 3 (FISH OIL) 1000 MG CAP PO SCH ×3 (08:24→17:55)
[2017-03-30] MEDS: APIXABAN 5 MG (ELIQUIS) TABLET PO SCH ×2 (08:24→21:14)
--- NOTE | 2017-03-30 08:24 | Cardiology Progress Note ---
Subjective Date Seen by Provider: Mar 30, 2017 Time Seen by Provider: 08:20 Subjective/Events-last exam Patient is in bed, complaining of palpitations, on and off, no chest pain or shortness of breath Review of Systems General: No Chills, No Night Sweats, No Fatigue, No Malaise, No Appetite, No Other HEENT: No Head Aches, No Visual Changes, No Eye Pain, No Ear Pain, No Dysphasia , No Sinus Congestion, No Post Nasal Drip, No Sore Throat, No Other Pulmonary: No Dyspnea, No Cough, No Pleuritic Chest Pain, No Other Cardiovascular: Palpitations, No: Chest Pain, Orthopnea, Paroxysmal Noc. Dyspnea, Edema, Lt Headedness, Other Objective-Cardiology Exam Last Set of Vital Signs Vital Signs 03/30/17 03/30/17 03/30/17 04:00 06:00 07:00 Temp 98.5 Pulse 91 Resp 20 B/P (MAP) 138/91 (107) Pulse Ox 95 O2 Delivery NIV CPAP Capillary Refill : I&O Intake and Output 03/30/17 00:00 Intake Total 2290 ml Output Total 3200 ml Balance -910 ml Intake Oral 2290 ml Output Urine Total 3200 ml # Bowel Movements 1 General: Alert, Oriented X3, Cooperative, No Acute Distress HEENT: Atraumatic, PERRLA Neck: Supple, No JVD Lungs: Clear to Auscultation, Normal Air Movement Heart: Normal S1, Normal S2, Other (a fib) Abdomen: Normal Bowel Sounds, Soft, No Tenderness Extremities: No Clubbing, No Cyanosis, No Edema, Normal Pulses Skin: No Rashes, No Significant Lesion Neuro: Normal Gait, Normal Speech, Cranial Nerves 3-12 NL Psych/Mental Status: Mental Status NL, Mood NL Results Lab Laboratory Tests 03/30/17 04:00 A/P-Cardiology Admission Diagnosis Afib with RVR HTN NATHALIE Obesity Assessment/Plan Atrial fibrillation with RVR- has been following with Dr. Menendez. Most recently , underwent sotalol initiation last week followed by cardioversion done by on March 23, 2017. Return to clinic earlier this week, EKG revealed Afib with HR in the 120's. Patient was admitted to ICU and started on Sotalol 160mg BID. still in A fib, planning for cardioversion today Hypokalemia, replaced and better today, continue to monitor Hypertension, controlled, continue current medications and continue to monitor. NATHALIE- patient uses CPAP, continue to monitor. Intolerance to angiotensin-converting enzyme inhibitors with cough. Dyspnea, related to the palpitation. Reporting improvement. Continue to monitor. History of atrial septal defect, [place] [address] Garg. History of atrial septal repair, BLU did not show any shunt Tobaccoism, patient chewed tobacco, he was educated and instructed on avoiding any tobacco product. Family history of coronary artery disease. Obesity, BMI 35, patient was educated on weight loss and exercise. Clinical Quality Measures DVT/VTE Risk/Contraindication: Risk Factor Score Per Nursin RFS Level Per Nursing on Admit: 4+=Very High BESSY HERNANDEZ MD Mar 30, 2017 08:24
--- NOTE | 2017-03-30 08:24 | Cardiac Procedure Note-CS/ASA ---
Pre-Procedure Note Pre-Op Procedure Note H&P Reviewed The H&P was reviewed, patient examined and no changes noted. Date H&P Reviewed: Mar 30, 2017 Time H&P Reviewed: 08:24 Conscious Sedation Pre-Proced Time Reviewed: 08:24 ASA Class: 3 Airway Mallampati Classification: (solomon appropriate class) I. II. III, IV Lungs Heart ASA score ASA 1: a normal healthy patient ASA 2: a patient with a mild systemic disease (mid diabetes, controlled hypertension, obesity x ASA 3: a patient with a severe systemic disease that limits activity (angina , COPD, prior Myocardial infarction) ASA 4: a patient with an incapacitating disease that is a constant threat to life (CHF, renal failure) ASA 5: a moribund patient not expected to survive 24 hrs. (ruptured aneurysm) ASA 6: a declared brain patient whose organs are being harvested. For emergent operations, add the letter E after the classification Grade 3 Sedation Plan: Analgesia, Amnesia, Plan communicated to team members, Discussed options with patient/fam, Discussed risks with patient/fam Note The patient is an appropriate candidate to undergo the planned procedure, sedation, and anesthesia. The patient immediately re-assessed prior to indication. BESSY HERNANDEZ MD Mar 30, 2017 08:24
[2017-03-30] MEDS ORDERED: MIDAZOLAM 2 MG/2 ML (VERSED) VIAL ONE (09:44)
[2017-03-30] MEDS ORDERED: proPOfol 200 MG/20 ML (DIPRIVAN) VIAL IV ONE (09:44)
[2017-03-30] MEDS ORDERED: NS IV 500 ML 500 ML ONE (09:46)
[2017-03-30] MEDS ORDERED: meTOprolol 5 MG/5 ML (LOPRESSOR) VIAL ONE (10:06)
--- NOTE | 2017-03-30 10:13 | Progress Note-Standard ---
Standard Progress Note Progress Notes/Assess & Plan Date Seen by Provider: Mar 30, 2017 Time Seen by Provider: 09:45 Final Diagnosis Called to ICU for Cardioversion. Brief history obtained from patient. Patient sedated with 2mg Versed and 100mg of Propofol. Anesthesia Type:MAC. ASA 3. Spontaneous Respirations maintained throughout procedure. Tolerated well. ANDRES WALLIS CRNA Mar 30, 2017 10:13
[2017-03-30] MEDS ORDERED: meTOprolol 5 MG/5 ML (LOPRESSOR) VIAL IV ONE (10:15)
--- NOTE | 2017-03-30 11:33 | Cardiac Procedure Note ---
Cardiology Procedures Date of Procedure 03/30/17 Electrical cardioversion report After explained the procedure to the patient and his , signing consent, all pros and cons were explained. Anesthesia or cold for conscious sedation. Patient was sedated and received synchronized DC cardioversion is with 120 J, it was successful in terminating atrial fibrillation, within the minute patient returned to atrial fibrillation I delivered her second shock while patient was still sedated it was successful again. Patient continued to have back and forth atrial fibrillation and atrial flutter. Conclusion Successful electrical cardioversion, patient converted to sinus rhythm but failed to maintain sinus rhythm. Continue to be in and out of atrial fibrillation and flutter BESSY HERNANDEZ MD Mar 30, 2017 11:33
[2017-03-31] VITALS (23 sets, daily range): BP systolic 117–147; BP diastolic 74–104
[2017-03-31 04:13] LABS: BASOPHILS % (AUTO) 1 % (0-10); EOSINOPHILS # (AUTO) 0.1 10^3/uL (0.0-0.3); EOSINOPHILS % (AUTO) 3 % (0-10); HEMATOCRIT 39 % (40-54); HEMOGLOBIN 14.2 G/DL (13.3-17.7); LYMPHOCYTES % (AUTO) 38 % (12-44); MEAN CORPUSCULAR HEMOGLOBIN 31 PG (25-34); MEAN CORPUSCULAR HGB CONC 36 G/DL (32-36); MEAN CORPUSCULAR VOLUME 86 FL (80-99); MEAN PLATELET VOLUME 10.3 FL (7.4-10.4); MONOCYTES # (AUTO) 0.6 X 10^3 (0.0-1.0); MONOCYTES % (AUTO) 12 % (0-12); NEUTROPHILS # (AUTO) 2.4 X 10^3 (1.8-7.8); NEUTROPHILS % (AUTO) 47 % (42-75); PLATELET COUNT 175 10^3/uL (130-400); RED BLOOD COUNT 4.55 10^6/uL (4.35-5.85); RED CELL DISTRIBUTION WIDTH 13.3 % (10.0-14.5); WHITE BLOOD COUNT 5.2 10^3/uL (4.3-11.0)
[2017-03-31 04:40] LABS: BUN/CREATININE RATIO 10; CALCIUM 8.9 MG/DL (8.5-10.1); CARBON DIOXIDE 25 MMOL/L (21-32); CHLORIDE 105 MMOL/L (98-107); CREATININE SERUM 0.82 MG/DL (0.60-1.30); GFR ESTIMATED > 60; GLUCOSE 103 MG/DL (70-105); MAGNESIUM 2.3 MG/DL (1.8-2.4); PHOSPHORUS 3.4 MG/DL (2.3-4.7); POTASSIUM 3.6 MMOL/L (3.6-5.0); SODIUM 143 MMOL/L (135-145)
[2017-03-31] MEDS: MAGNESIUM 1 GM/100 ML IVPB 100 ML IV SCH (04:43)
[2017-03-31] MEDS: POTASSIUM CL 10MEQ/50ML IVPB 50 ML IV SCH (04:50)
[2017-03-31] MEDS: KCL 20 MEQ TAB (K-DUR) PO SCH ×2 (04:50→06:52)
[2017-03-31] MEDS ORDERED: KCL 20 MEQ TAB (K-DUR) PO ONE (06:00)
[2017-03-31] MEDS: DULoxetine 30 MG (CYMBALTA) CAP PO SCH (07:52)
[2017-03-31] MEDS: clonazePAM 0.5 MG (KlonoPIN) TAB PO SCH ×2 (07:52→21:03)
[2017-03-31] MEDS: DILTIAZEM 180 MG (CARDIZEM CD) CAP PO SCH (07:52)
[2017-03-31] MEDS: APIXABAN 5 MG (ELIQUIS) TABLET PO SCH ×2 (07:53→21:03)
[2017-03-31] MEDS: SOTALOL 80 MG (BETAPACE) TAB PO SCH ×3 (07:53→21:03)
--- NOTE | 2017-03-31 08:34 | Cardiology Progress Note ---
Subjective Date Seen by Provider: Mar 31, 2017 Time Seen by Provider: 08:32 Subjective/Events-last exam Patient is sitting in a chair, eating breakfast, denied any chest pain, had prolongation of QT interval last night subsequently I held sotalol. This morning his QT interval is back to baseline. I will restart at the lower dose. Review of Systems General: No Chills, No Night Sweats, No Fatigue, No Malaise, No Appetite, No Other HEENT: No Head Aches, No Visual Changes, No Eye Pain, No Ear Pain, No Dysphasia , No Sinus Congestion, No Post Nasal Drip, No Sore Throat, No Other Pulmonary: No Dyspnea, No Cough, No Pleuritic Chest Pain, No Other Cardiovascular: No: Chest Pain, Palpitations, Orthopnea, Paroxysmal Noc. Dyspnea, Edema, Lt Headedness, Other Objective-Cardiology Exam Last Set of Vital Signs Vital Signs 03/31/17 03/31/17 06:00 08:00 Temp 96.2 Pulse 83 Resp 12 B/P (MAP) 130/86 (101) Pulse Ox 96 O2 Delivery Room Air Capillary Refill : I&O Intake and Output 03/31/17 00:00 Intake Total 2675 ml Output Total 1250 ml Balance 1425 ml Intake Oral 2175 ml IV Total 500 ml Output Urine Total 1250 ml # Voids 5 General: Alert, Oriented X3, Cooperative, No Acute Distress HEENT: Atraumatic, PERRLA Neck: Supple, No JVD Lungs: Clear to Auscultation, Normal Air Movement Heart: Normal S1, Normal S2, Other (a fib) Abdomen: Normal Bowel Sounds, Soft, No Tenderness Extremities: No Clubbing, No Cyanosis, No Edema, Normal Pulses Skin: No Rashes, No Significant Lesion Neuro: Normal Gait, Normal Speech, Cranial Nerves 3-12 NL Psych/Mental Status: Mental Status NL, Mood NL Results Lab Laboratory Tests 03/31/17 04:00 A/P-Cardiology Admission Diagnosis Afib with RVR HTN NATHALIE Obesity Assessment/Plan Atrial fibrillation with RVR- has been following with Dr. Menendez. Had cardioversion yesterday that has failed, QT interval last night was prolonged. I held sotalol, I'll restart the medication at 120 mg twice daily and increase Cardizem to 240 mg daily and monitor his tolerance and response Hypertension, controlled, continue current medications and continue to monitor. NATHALIE- patient uses CPAP, continue to monitor. Intolerance to angiotensin-converting enzyme inhibitors with cough. Dyspnea, related to the palpitation. Reporting improvement. Continue to monitor. History of atrial septal defect, [place] [address] Garg. History of atrial septal repair, BLU did not show any shunt Tobaccoism, patient chewed tobacco, he was educated and instructed on avoiding any tobacco product. Family history of coronary artery disease. Obesity, BMI 35, patient was educated on weight loss and exercise. Clinical Quality Measures DVT/VTE Risk/Contraindication: Risk Factor Score Per Nursin RFS Level Per Nursing on Admit: 4+=Very High BESSY HERNANDEZ MD Mar 31, 2017 08:34
[2017-03-31] MEDS ORDERED: DILTIAZEM 240 MG (CARDIZEM CD) CAP PO SCH (09:00)
[2017-03-31] MEDS ORDERED: KCL 20 MEQ TAB (K-DUR) PO NR (09:00)
[2017-03-31] MEDS ORDERED: OMEGA 3 (FISH OIL) 1000 MG CAP PO SCH ×2 (09:00)
[2017-03-31] MEDS: OMEGA 3 (FISH OIL) 1000 MG CAP PO SCH ×2 (10:16→17:29)
--- OUTSIDE RECORDS SUMMARY | 2017-03-31 12:42 | XMS REPORT | Clinical Summary ---
Author Author [facility] Organization [facility] Address Unknown Phone Unavailable Care Team Providers Care Box Sealing Machine Feeder Name Role Phone Brian Pozo MD PCP Source Comments Some departments are not documenting in the electronic medical record. If you do not see the information that you expected, contact Release of Information in the Health Information Management department at [phone] for further assistance in locating additional records.[facility] Allergies Active Allergy Reactions Severity Noted Date Comments Enalapril COUGH Low 11/30/2016 Penicillins UNKNOWN Low 11/30/2016 Current Medications Prescription Sig. Disp. Refills Start End Date Status Date diltiazem CD (CARDIZEM Take 180 mg by mouth Active CD) 180 mg capsule daily. duloxetine DR (CYMBALTA) Take 60 mg by mouth Active 60 mg capsule daily. Jhjqv-2-OBZ-EPA-Fish Oil Take 1 capsule by mouth Active (FISH OIL) 1,000 mg (120 three times daily. mg-180 mg) cap CLONAZEPAM (KLONOPIN PO) Take 0.25 mg by mouth Active twice daily. MULTIVITAMIN (MULTIPLE Take by mouth daily. Active VITAMIN PO) apixaban (ELIQUIS) 5 mg Take 5 mg by mouth twice Active tablet daily. metoprolol XL (TOPROL XL) Take 1 tablet by mouth at 30 tablet 1 Active 50 mg extended release bedtime daily. 18 tabletIndications: Persistent atrial fibrillation (HCC) sotalol (BETAPACE) 120 mg Take 1 tablet by mouth 60 tablet 1 03/24/19 Active tab twice daily. 18 metoprolol XL (TOPROL XL) Take 100 mg by mouth 03/24/19 Discontin 100 mg extended release daily. 18 ued tablet digoxin (LANOXIN) 125 mcg Take 1 tablet by mouth 90 tablet 3 02/21/19 03/24/19 Discontin tablet daily. 18 18 ued clonazePAM(+) (KLONOPIN) Dissolve 0.25 mg by mouth 03/24/19 Discontin 0.25 mg rapid dissolve twice daily. 18 ued tablet Active Problems Problem Noted Date A-fib (HCC) 03/22/2017 Encounter for monitoring sotalol therapy 03/22/2017 Chews tobacco 02/01/2017 Persistent atrial fibrillation (HCC) 01/17/2017 HTN (hypertension) 01/17/2017 NATHALIE on CPAP 01/17/2017 Congenital atrial septal defect 01/17/2017 Overview: Repaired [address] [place]. Encounters Date Type Specialty Care Team Description 03/24/2017 Pharmacy Visit 03/23/2017 Pharmacy Visit 03/23/2017 Anesthesia Cardiology Lilia Aguilar CRNA Event 03/22/2017 [facility] Attila Nam MD A-fib (FORM[facility]LY [facility] [place]) - Encounter Negar Cabrera MD 03/24/2017 Anne Liriano MD 03/22/2017 [facility] Cardiology Aster Menendez MD Encounter 03/22/2017 [facility] Cardiology Aster Menendez MD Encounter 03/22/2017 Anesthesia Cardiology Morgan Santos DO Event 03/21/2017 Pre-Admit Cardiology Britta Sandoval APRN Atrial fibrillation, Orders Only unspecified type (HCC) (Primary Dx) 03/07/2017 Documentation Cardiology Fabien Alejandre RN Precertification (Approval for Inpatient Sotalol Initiation through [employer] [place]) 02/21/2017 Office Visit Cardiology Aster Menendez MD Atrial fibrillation (Patient wants to talk about atrial clot/LAAA) 02/21/2017 Telephone Cardiology Melissa Hoffman RN Medication Update 02/01/2017 Hospital Cardiology Mercy Linton MD Encounter 02/01/2017 [facility] Cardiology Aster Menendez MD Encounter 02/01/2017 Documentation Cardiology Keisha Stoddard, BEBA Provider Discussion About Patient (Post BLU 02/01/2017 ) 02/01/2017 Telephone Cardiology Ailyn Callaway RN 02/01/2017 Documentation Cardiology Ailyn Callaway RN Other (atrial clot-instructions for increasing eliquis) 02/01/2017 Anesthesia Cardiology Benito Holden CRNA Event 01/31/2017 Pre-Admit Cardiology Irene Bowen, Orders Only CEMENT FINISHER APPRENTICE-PATIENT FINANCIAL COORDINATOR 01/24/2017 Documentation Cardiology Fabien Alejandre RN Precertification (Approval for Inpatient Sotalol Initiation through [employer] of [place]) 01/24/2017 Orders Only Cardiology Ailyn Callaway RN Persistent atrial fibrillation (HCC) (Primary Dx) 01/21/2017 Telephone Cardiology Ailyn Callaway RN Follow Up (DCCV to be done at Dr. Johnson office) 01/17/2017 Office Visit Cardiology Aster Menendez MD New Patient ( referred by Dr. Johnson); Atrial fibrillation from Last 3 Months Immunizations Name Dates Previously Given Next Due Pneumococcal Vaccine 03/23/2017 (23-Nara Adult) Family History Medical History Relation Name Comments None Reported Father Coronary Artery Disease Maternal Grandfather Hypertension Maternal Grandfather Coronary Artery Disease Maternal Grandmother Hypertension Maternal Grandmother Heart Surgery Maternal bipass Uncle Heart problem Maternal Uncle Pacemaker Maternal Uncle Heart problem Maternal Uncle Hyperlipidemia Mother Unknown to Patient Paternal Grandfather Unknown to Patient Paternal Grandmother Unknown to Patient Sister half Unknown to Patient Sister Relation Name Status Comments Father Alive Maternal Grandfather (Age 62) Maternal Grandmother (Age 73) Maternal Uncle Alive Maternal Uncle (Age 59) Mother Alive Paternal Grandfather Paternal Grandmother Sister half Alive Sister Alive Social History Tobacco Use Types Packs/Day Years Used Date Never Smoker Smokeless Tobacco: Snuff Current User Alcohol Use Drinks/Week oz/Week Comments Yes occasionally Sex Assigned at Date Recorded Not on file Last Filed Vital Signs Vital Sign Reading Time Taken Blood Pressure 127/75 03/24/2017 11:49 AM SUPERVISOR BODY ASSEMBLY Pulse 73 03/24/2017 11:49 AM SUPERVISOR BODY ASSEMBLY Temperature 36.7 C (98 F) 03/24/2017 11:49 AM SUPERVISOR BODY ASSEMBLY Respiratory Rate - - Oxygen Saturation 97% 03/24/2017 11:49 AM SUPERVISOR BODY ASSEMBLY Inhaled Oxygen - - Concentration Weight 103 kg (227 lb) 03/23/2017 3:30 PM SUPERVISOR BODY ASSEMBLY Height 170.2 cm (5' 7") 03/23/2017 3:30 PM SUPERVISOR BODY ASSEMBLY Body Mass Index 35.55 03/23/2017 3:30 PM SUPERVISOR BODY ASSEMBLY Plan of Treatment Health Maintenance Due Date Last Done Comments HEPATITIS C SCREENING 1965 PHYSICAL (COMPREHENSIVE) 11/20/1970 EXAM PERTUSSIS VACCINE 11/20/1974 TETANUS VACCINE 11/20/1980 COLORECTAL CANCER 11/20/2013 SCREENING INFLUENZA VACCINE 09/14/2016 Procedures Procedure Name Priority Date/Time Associated Diagnosis Comments ECG-SCAN 03/25/2017 Results for this 10:55 PM SUPERVISOR BODY ASSEMBLY procedure are in the results section. ECG-SCAN 03/25/2017 Results for this 10:55 PM SUPERVISOR BODY ASSEMBLY procedure are in the results section. ECG-SCAN 03/25/2017 Results for this 10:55 PM SUPERVISOR BODY ASSEMBLY procedure are in the results section. ECG-SCAN 03/25/2017 Results for this 10:55 PM SUPERVISOR BODY ASSEMBLY procedure are in the results section. ECG-SCAN 03/23/2017 Results for this 11:30 AM SUPERVISOR BODY ASSEMBLY procedure are in the results section. ECG-SCAN 03/23/2017 Results for this 11:30 AM SUPERVISOR BODY ASSEMBLY procedure are in the results section. ECG-SCAN 02/09/2017 Results for this 8:46 AM SUPERVISOR BODY ASSEMBLY procedure are in the results section. from Last 3 Months Results * ECG-SCAN (03/25/2017 10:55 PM) Narrative Ordered by an unspecified provider. * ECG-SCAN (03/25/2017 10:55 PM) Narrative Ordered by an unspecified provider. * ECG-SCAN (03/25/2017 10:55 PM) Narrative Ordered by an unspecified provider. * ECG-SCAN (03/25/2017 10:55 PM) Narrative Ordered by an unspecified provider. * CBC (03/24/2017 3:53 AM) Only the most recent of 4 results within the time period is included. Component Value Ref Range White Blood Cells 5.3 4.5 - 11.0 K/UL RBC 4.31 (L) 4.4 - 5.5 M/UL Hemoglobin 13.1 (L) 13.5 - 16.5 GM/DL Hematocrit 37.4 (L) 40 - 50 % MCV 86.7 80 - 100 FL MCH 30.5 26 - 34 PG MCHC 35.1 32.0 - 36.0 G/DL RDW 13.1 11 - 15 % Platelet Count 156 150 - 400 K/UL MPV 8.8 7 - 11 FL Specimen Performing Laboratory [facility] [address] [place] [address] * MAGNESIUM (03/24/2017 3:53 AM) Only the most recent of 4 results within the time period is included. Component Value Ref Range Magnesium 2.3 1.6 - 2.6 mg/dL Specimen Performing Laboratory [facility] [address] [place] [address] * BASIC METABOLIC PANEL (03/24/2017 3:53 AM) Only the most recent of 4 results within the time period is included. Component Value Ref Range Sodium 142 137 - 147 MMOL/L Potassium 3.7 3.5 - 5.1 MMOL/L Chloride 105 98 - 110 MMOL/L CO2 30 21 - 30 MMOL/L Anion Gap 7 3 - 12 Glucose 87 70 - 100 MG/DL Blood Urea Nitrogen 11 7 - 25 MG/DL Creatinine 0.92 0.4 - 1.24 MG/DL Calcium 9.4 8.5 - 10.6 MG/DL eGFR Non >60 >60 mL/min Comment: The eGFR is not validated for use in drug dosing adjustments. Continue to use estimated creatinine clearance per dosing reference text. Please contact the Clinical Pharmacist for questions. eGFR >60 >60 mL/min Comment: The eGFR is not validated for use in drug dosing adjustments. Continue to use estimated creatinine clearance per dosing reference text. Please contact the Clinical Pharmacist for questions. Specimen Performing Laboratory [facility] [address] [place] [address] * CARDIOVERSION, EXTERNAL (03/23/2017 4:03 PM) Specimen Performing Laboratory OTHER OUTSIDE LAB Narrative DATE OF PROCEDURE:03/23/2017 PROCEDURE: DC Cardioversion. ART GILDER:Darrell Toledo MD INDICATION FOR PROCEDURE:The patient is a 51 y.o. with atrial fibrillation.The patient has been anticoagulated with Eliquis for last 2 doses and underwent BLU showing no thrombus on 03/21/2017.The patient has been on Sotalol initiated in the inpatient setting. DETAILS OF PROCEDURE: After the risks, benefits and alternatives were discussed with the patient at length, informed consent was obtained. Anesthesia provided sedation. After adequate sedation was attained, a synchronized 250 -joule countershock was delivered via anterior and posterior patches. This was successful in converting atrial fibrillation to sinus rhythm. There were no apparent complications. ECG confirms sinus rhythm. CONCLUSION: Successful DC cardioversion of atrial fibrillation to sinus rhythm. The patient s heart rate and blood pressure will be monitored closely here in the Pre Post area and will be transferred to the inpatient area for completion of sotalol. I have discussed the results of the procedure with the patient and family. Darrell Toledo MD, MSc. * ECG-SCAN (03/23/2017 11:30 AM) Narrative Ordered by an unspecified provider. * ECG-SCAN (03/23/2017 11:30 AM) Narrative Ordered by an unspecified provider. * PHOSPHORUS (03/23/2017 4:47 AM) Component Value Ref Range Phosphorus 3.2 2.0 - 4.0 MG/DL Specimen Performing Laboratory [facility] [address] [place] [address] * TRANSESOPHAGEAL ECHOCARDIOGRAM (03/22/2017 12:04 PM) Only the most recent of 2 results within the time period is included. Component Value Ref Range BSA 2.25 m2 CV ECHO PV COMMUNICATIONS SPECIALIST BEBA Brooks, Anesthesia ECHO EF 60 % Specimen Performing Laboratory OTHER OUTSIDE LAB Narrative 1.Markedly dilated left atrium.No thrombus. 2.Moderately dilated right atrium.No thrombus. 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 4.Moderately dilated right ventricle.Normal ejection fraction. Central jet of mild, functional, tricuspid regurgitation. 5.Rhythm is atrial fibrillation. * ECG-SCAN (02/09/2017 8:46 AM) Narrative Ordered by an unspecified provider. * ECG/QRS (01/17/2017 3:43 PM) Component Value Ref Range QRS DURATION 98 Specimen Performing Laboratory OTHER OUTSIDE LAB from Last 3 Months
--- OUTSIDE RECORDS SUMMARY | 2017-03-31 12:42 | XMS REPORT | Encounter Summary ---
Author Author [facility] Organization [facility] Address Unknown Phone Unavailable Care Team Providers Care Furniture Assembler And Installer Name Role Phone Brian Pozo MD PCP Encounter Details Date Type Department Care Team Description 03/24/2017 Pharmacy Visit [facility] [address] [place] [address] Social History Tobacco Use Types Packs/Day Years Used Date Never Smoker Smokeless Tobacco: Snuff Current User Alcohol Use Drinks/Week oz/Week Comments Yes occasionally Sex Assigned at Date Recorded Not on file as of this encounter Functional Status Functional Status Response Date of Assessment Does the patient have a hearing impairment: No 03/23/2017 as of this encounter Plan of Treatment Not on fileas of this encounter Visit Diagnoses Not on filein this encounter
--- OUTSIDE RECORDS SUMMARY | 2017-03-31 12:42 | XMS REPORT | Continuity of Care Document ---
Author Author [facility] Organization [facility] Address Unknown Phone Unavailable Care Team Providers Care Nurse Navigator Name Role Phone [employer] Unavailable Unavailable Problems Medications Allergies, Adverse Reactions, Alerts Immunizations Results Vital Signs Encounters Location Location Details Encounter Type Encounter Number Reason For Visit Attending Provider ADM Date DC Date Status Source CSOL [id number] Clinic ( Outpatient) [id number] Bryce Ingram 01/22/2013 Active [facility] OUTPATIENT [id number] MAGI ARMENTA 01/17/2017 Active [facility] OUTPATIENT [id number] 02/01/2017 Active [facility] OUTPATIENT [id number] ZENY KAHN 02/01/20172016 Active [facility] OUTPATIENT [id number] 02/02/2017 Active [facility] OUTPATIENT [id number] MAGI ARMENTA 02/21/2017 Active [facility] OUTPATIENT [id number] MAGI ARMENTA 03/22/2017 Active [facility] OUTPATIENT [id number] JAZLYN BONNER 03/23/2017 Active [facility] O Active [facility] Procedures Plan of Care Social History Assessment and Plan Family History Advance Directives Functional Status
--- OUTSIDE RECORDS SUMMARY | 2017-03-31 12:43 | XMS REPORT | Encounter Summary ---
Author Author [facility] Organization [facility] Address Unknown Phone Unavailable Care Team Providers Care Rfid Technician Name Role Phone Brian Pozo MD PCP Reason for Visit * Reason Comments Provider Discussion About Post BLU 02/01/2017 Patient Encounter Details Date Type Department Care Team Description 02/01/2017 Documentation [facility] Keisha Stoddard RN Provider Discussion About [address] Patient ([place] [address] 02/01/2017 ) [phone] Social History Tobacco Use Types Packs/Day Years Used Date Never Smoker Smokeless Tobacco: Snuff Current User Alcohol Use Drinks/Week oz/Week Comments Yes occasionally Sex Assigned at Date Recorded Not on file as of this encounter Instructions * Patient Instructions - Keisha Stoddard RN - 02/01/2017 12:11 PM MEAT SLICER Formatting of this note may be different from the original. Per instruction of Ailyn Callaway RN for Dr. Menendez instructions pasted below were given to the patient. Instructions reviewed at length with patient and spouse, Dolores. No questions at this time and the patient expresses understanding of the instructions. Patient read back instructions to RN. To note, patient and spouse expressed concern regarding the thrombus still being found on BLU, would like to schedule appointment with Dr. Menendez before repeat BLU in 4-6 weeks. Procedural RN will message Ailyn Callaway to see if patient can scheduled to see Dr. Menendez. These instructions, pasted below, were printed and given to patient along with post anesthesia instructions for BLU. Ailyn Callaway RN Other Reason for visit Instructions Due to your continued atrial clot, we will have you increase your eliquis to 10mg twice daily for the next 7 days (02/02-02/09) and then resume your 5mg twice daily dosing. Please do not participate in any high risk behavior while you are on this increased dose of eliquis due to risk of bleeding. Kae will call you to reschedule your BLU for 4-6 weeks. Additional Documentation Encounter Info: Billing Info, History, Allergies, Detailed Report Encounter Status Encounter Information Provider Department Encounter # 02/01/2017 Ailyn Callaway [facility] [id number] in this encounter Plan of Treatment Not on fileas of this encounter Visit Diagnoses Not on filein this encounter
--- OUTSIDE RECORDS SUMMARY | 2017-03-31 12:43 | XMS REPORT | Encounter Summary ---
Author [facility] Address Unknown Phone Unavailable Care Team Providers Care Aed Trainer Name Role Phone Brian Pozo MD PCP Reason for Visit * Auth/Cert Status Reason Specialty Diagnoses / Referred By Referred To Procedures Contact Contact Diagnoses Atrial Fibrillation A-fib ([facility]) Encounter for monitoring sotalol therapy Encounter Details Date Type Department Care Team Description 03/22/2017 [facility] Cardio Prgrsv Care Attila Nam MD A-fib (HCC) - Encounter [address] [facility] [place] [address] 03/24/2017 [place] [address] MS [address] [place] [address] [phone] Negar Alonso MD [address] [place] [address] [phone] Anne Denton MD [address] [place] [address] [phone] Social History Tobacco Use Types Packs/Day Years Used Date Never Smoker Smokeless Tobacco: Snuff Current User Alcohol Use Drinks/Week oz/Week Comments Yes occasionally Sex Assigned at Date Recorded Not on file as of this encounter Last Filed Vital Signs Vital Sign Reading Time Taken Blood Pressure 127/75 03/24/2017 11:49 AM DENTURE TECHNICIAN Pulse 73 03/24/2017 11:49 AM DENTURE TECHNICIAN Temperature 36.7 C (98 F) 03/24/2017 11:49 AM DENTURE TECHNICIAN Respiratory Rate - - Oxygen Saturation 97% 03/24/2017 11:49 AM DENTURE TECHNICIAN Inhaled Oxygen - - Concentration Weight 103 kg (227 lb) 03/23/2017 3:30 PM DENTURE TECHNICIAN Height 170.2 cm (5' 7") 03/23/2017 3:30 PM DENTURE TECHNICIAN Body Mass Index 35.55 03/23/2017 3:30 PM DENTURE TECHNICIAN in this encounter Functional Status Functional Status Response Date of Assessment Does the patient have a hearing impairment: No 03/23/2017 as of this encounter Discharge Summaries * Anne Whiteside MD - 03/24/2017 1:42 PM DENTURE TECHNICIAN Formatting of this note may be different from the original. Physician Discharge Summary Name: Loc Rocha Date of : 1965 Age: 51 y.o. Admit date: 03/22/2017 Discharge date: 03/24/2017 Service: [facility] M 6635 Attending Physician: Camila att. providers found Reason for hospitalization: persistent symptomatic afib Primary Diagnosis: Hospital Problems Active Problems HTN (hypertension) NATHALIE on CPAP A-fib (HCC) Encounter for monitoring sotalol therapy Significant PMH/Secondary Diagnosis: Past Medical History: Diagnosis Date A-fib (HCC) Depression HTN (hypertension) NATHALIE (obstructive sleep apnea) Consults: Cardiology Allergies: Enalapril and Penicillins Brief Hospital Course: Mr. Rocha is a 51-year-old male with a history of paroxysmal atrial fibrillation hypertension, NATHALIE, depression, anxiety who presented for a planned admission for sotalol initiation and cardioversion given his afib progression to persistent symptomatic afib. Cardiology was consulted and patient underwent initiation of sotalol with close monitoring of EKGs and electrolytes. Patient underwent cardioversion on 03/23/2017 given persistent A. fib and was able to convert to normal sinus rhythm. He tolerated initiation of sotalol well clinically with stable QTC on EKG hence was discharged home to follow-up with Dr. Menendez as outpatient. Of note during his hospitalization patient's digoxin was discontinued, he was started on sotalol 120mg BID and his metoprolol dose was reduced to 50 mg daily. No other medication changes were made. Condition at Discharge (Status/Functional/Cognitive): improved Iglesias Surgical/Diagnostic Studies and Procedures: see above Pending Labs/items needing follow up: see above Patient Disposition: Home Patient instructions: Activity as Tolerated It is important to keep increasing your activity level after you leave the hospital. Moving around can help prevent blood clots, lung infection (pneumonia ) and other problems. Gradually increasing the number of times you are up moving around will help you return to your normal activity level more quickly. Continue to increase the number of times you are up to the chair and walking daily to return to your normal activity level. Begin to work toward your normal activity level at discharge Report These Signs and Symptoms Please contact your doctor if you have any of the following symptoms: chest pain , palpitations, shortness of breath. Questions About Your Stay For questions or concerns regarding your hospital stay. Call [phone] Discharging attending physician: ANNE WHITESIDE [[id number]] Cardiac Diet Limiting unhealthy fats and cholesterol is the most important step you can take in reducing your risk for cardiovascular disease. Unhealthy fats include saturated and trans fats. Monitor your sodium and cholesterol intake. Restrict your sodium to 2g (grams) or 2000mg (milligrams) daily, and your cholesterol to 200mg daily. If you have questions regarding your diet at home, you may contact a dietitian at . CARDIOVERSION, EXTERNAL Standing Status: Future Number of Occurrences: 1 Standing Exp. Date: 03/21/18 Cardioversion Staff? [facility] Nursing Location of Appointment [facility] / Mon-Fri Current Discharge Medication List START taking these medications Details sotalol (BETAPACE) 120 mg tab Take 1 tablet by mouth twice daily. Qty: 60 tablet, Refills: 1 PRESCRIPTION TYPE: Normal CONTINUE these medications which have been CHANGED or REFILLED Details metoprolol XL (TOPROL XL) 50 mg extended release tablet Take 1 tablet by mouth at bedtime daily. Qty: 30 tablet, Refills: 1 PRESCRIPTION TYPE: Normal Associated Diagnoses: Persistent atrial fibrillation (HCC) CONTINUE these medications which have NOT CHANGED Details apixaban (ELIQUIS) 5 mg tablet Take 5 mg by mouth twice daily. PRESCRIPTION TYPE: Historical Med CLONAZEPAM (KLONOPIN PO) Take 0.25 mg by mouth twice daily. PRESCRIPTION TYPE: Historical Med diltiazem CD (CARDIZEM CD) 180 mg capsule Take 180 mg by mouth daily. PRESCRIPTION TYPE: Historical Med duloxetine DR (CYMBALTA) 60 mg capsule Take 60 mg by mouth daily. PRESCRIPTION TYPE: Historical Med MULTIVITAMIN (MULTIPLE VITAMIN PO) Take by mouth daily. PRESCRIPTION TYPE: Historical Med Unbnw-4-AII-EPA-Fish Oil (FISH OIL) 1,000 mg (120 mg-180 mg) cap Take 1 capsule by mouth three times daily. PRESCRIPTION TYPE: Historical Med The following medications were removed from your list. This list includes medications discontinued this stay and those removed from your prior med list in our system clonazePAM(+) (KLONOPIN) 0.25 mg rapid dissolve tablet digoxin (LANOXIN) 125 mcg tablet Scheduled appointments: May 30, 2017 11:20 AM CDT Return Patient with Aster Menendez MD [facility] ([facility]) [address] [place] [address] [facility] [address] Additional appointment instructions: Please see your PCP in 1 week Signed: Anne Whiteside MD 03/24/2017 cc: Primary Care Physician: Brian Pozo Verified Referring Physicians: Attila Nam MD in this encounter Discharge Instructions * Discharge Instr - Appointments - Anne Whiteside MD - 03/24/2017 11:24 AM DENTURE TECHNICIAN Please see your PCP in 1 week in this encounter Medications at Time of Discharge Medication Sig. Disp. Refills Start Date End Date apixaban (ELIQUIS) 5 mg Take 5 mg by mouth twice tablet daily. CLONAZEPAM (KLONOPIN PO) Take 0.25 mg by mouth twice daily. diltiazem CD (CARDIZEM Take 180 mg by mouth CD) 180 mg capsule daily. duloxetine DR (CYMBALTA) Take 60 mg by mouth 60 mg capsule daily. metoprolol XL (TOPROL XL) Take 1 tablet by mouth at 30 tablet 1 2017 50 mg extended release bedtime daily. tabletIndications: Persistent atrial fibrillation (HCC) MULTIVITAMIN (MULTIPLE Take by mouth daily. VITAMIN PO) Bcegq-6-HSA-EPA-Fish Oil Take 1 capsule by mouth (FISH OIL) 1,000 mg (120 three times daily. mg-180 mg) cap sotalol (BETAPACE) 120 mg Take 1 tablet by mouth 60 tablet 1 2017 tab twice daily. as of this encounter Progress Notes * Anne Whiteside MD - 03/24/2017 1:42 PM DENTURE TECHNICIAN Day of DC Note Mr. Rocha is a 51-year-old male with a history of paroxysmal atrial fibrillation hypertension, NATHALIE, depression, anxiety who presented for a planned admission for sotalol initiation and cardioversion given his afib progression to persistent symptomatic afib. Cardiology was consulted and patient underwent initiation of sotalol with close monitoring of EKGs and electrolytes. Patient underwent cardioversion on 03/23/2017 given persistent A. fib and was able to convert to normal sinus rhythm. He tolerated initiation of sotalol well clinically with stable QTC on EKG hence was discharged home to follow-up with Dr. Menendez as outpatient. Of note during his hospitalization patient's digoxin was discontinued and his metoprolol dose was reduced to 50 mg daily. No other medication changes were made. I spent a total of 35 minutes in pt dc care today spent counseling pt and coordinating care. ANNE WHITESIDE MD [facility] [phone] * David Ackerman - 03/24/2017 1:21 PM DENTURE TECHNICIAN Reason for Visit: Initial Lin/Caodaism: Pentecostalism Source of Purpose/Meaning: The patient said that he wants to live in the moment because the past is gone and the future is yet. The patient said his lin in almighty God has given him a sense of life and meaning. The patient said that he believes almighty God is the maker of the universe and he sustains everything therein. The patient said he thanks God for sustaining him in good health despite what he faces at the moment. Worries/Concerns/Struggles: The patient said he struggles to comprehend how he became sick and is worried about loss of his freedom to move and association. Method(s) of Coping: the patient said his coping is spouse and his daughter. Support System: The patient said his support system is staff, medical team and integrated circuits inspector. Interventions/Plan: prayer and rounding. * Steven Chilel MBBS - 03/24/2017 2:13 AM DENTURE TECHNICIAN Brief cardiology update note Patient Name:Loc Lockge:51 y.o.Sex:[id number] - Patient was started on sotalol 120 mg BID for Atrial fibrillation on 03/22/17. - Baseline ECG at 10:58 AM 03/22/17 has atrial fibrillation with QTc of 481 msec. - Patient converted to normal sinus rhythm in afternoon 03/23/17. - Most recent EKG done at 00:29 AM 03/24/17 after 4th dose showed normal sinus rhythm with QTc 484 msec. - No significant change noted. - It is ok to give next dose as scheduled. Steven VICTORIA MD. Development Technician [phone] * Steven Chilel MBBS - 03/23/2017 8:51 PM DENTURE TECHNICIAN Brief cardiology update note Patient Name:Loc Lockge:51 y.o.Sex:[id number] - Patient was started on sotalol 120 mg BID for Atrial fibrillation on 03/22/17. - Baseline ECG at 10:58 AM 03/22/17 has atrial fibrillation with QTc of 481 msec. - Patient converted to normal sinus rhythm in afternoon 03/23/17. - Most recent EKG done at 8:40 PM 03/23/17 showed normal sinus rhythm with QTc 483 msec. - No significant change noted. - It is ok to give next dose as scheduled. Steven VICTORIA MD. Development Technician [phone] * Tali Holden RN - 03/23/2017 8:09 PM DENTURE TECHNICIAN 1942 Pt and spouse had questions concerning health care directive. They stated they do not have a hard copy following discussion and were wondering if the advanced directive follows them or if they need to bring it with them wherever they go for healthcare. RN to pass off to day shift RN to follow-up in AM. 2009 Night fellow paged. Pt had received 3rd dose sotalol prior to cardioversion 03/23. Next dose due at 2230. Awaiting call back with orders and okay to give next back 2012 Night fellow returned call. 2248 EKG post cardioversion complete. Per EKG, SR with QTc 483. NF text paged update. 0029 EKG complete following fourth dose. RN calculated Qtc 480. EKG reads SR with Qtc 484. Night fellow paged with update for confirmation to give next dose at 0830 * Eugenio Catherine, BEBA - 03/23/2017 6:30 PM DENTURE TECHNICIAN I have reviewed the notes, assessment, and/or procedures performed by Zuleima Lind RN and concur with her documentation unless otherwise noted. * Maliha Valdivia, BEBA - 03/23/2017 3:28 PM DENTURE TECHNICIAN Formatting of this note may be different from the original. Care Plan Care Category & Patient Outcome Goal Met Treatment/ Interventions Plan of the Day RN Name Cardiovascular Hemodynamic stability and adequate peripheral perfusion. Yes Refer to patient's chart. Monitor VS per sedation standard. Monitor ECG continuously. Assess/maintain IV patency. Maliha Valdivia RN Respiratory Patent airway, ease of respiration, and adequate oxygenation. Yes Refer to patient's chart. Maintain open airway. Assess respirations. Monitor O2 saturations. Titrate O2 to keep sat>=95% or baseline. Maliha Valdivia RN Psychological/Emotional/Spiritual Issue with procedure with support in place. Spiritual needs are addressed. Yes Refer to patient's chart. Provide adequate and thorough instructions. Provide a caring and supportive environment. Communicate patients concerns with other members of the health team. Maliha Valdivia RN Pain Patients pain goal met. Yes Refer to patient's chart. Prepare patient for potentially uncomfortable procedure. Observe for verbal/nonverbal complaints of pain. Assess pain. Provide comfort measures. Maliha Valdivia RN Safety/Fall Risk Free from injury, security maintained. Yes High Risk Refer to patient's chart. Follow nursing standard of practice for high risks fall patients. Maliha Valdivia RN Knowledge Base Verbalize understanding of procedure/information provided. Yes Refer to patient's chart. Describe the procedure along with what symptoms to expect. Evaluate patients understanding of procedure. Encourage patient to ask questions. Provide additional information as needed. Maliha Valdivia RN * Anne Whiteside MD - 03/23/2017 2:27 PM DENTURE TECHNICIAN Formatting of this note may be different from the original. General Progress Note Today's Date: 03/23/2017 Admission Date: 03/22/2017 LOS: 1 day Assessment/Plan: Active Problems: HTN (hypertension) NATHALIE on CPAP A-fib (HCC) Encounter for monitoring sotalol therapy Parosxysmal AFib: - BLU 03/22 with resolution of LA thrombus while on eliquis. - s/p 2 doses of sotalol so far with stable Qtc/rates with cardiology monitoring - monitor electrolytes. monitor on telemetry - holding digoxin, continue metoprolol and diltiazem per Cardio - Cardioversion this afternoon. HTN: - continue metoprolol and diltiazem as above NATHALIE: - CPAP Depression: - on duloxetine Anxiety-will resume BLUEPRINT ENGINEER benzo if OK w/ cardio Hx of congenital ASD s/p repair 1998 FEN: no IVF. lytes PRN. regular diet after cardioversion if OK w/ cardio PPx: on eliquis highly complex decision making, including coordination with EP, closely monitor sotalol side effects, electrolytes, telemetry and EKGs while on sotalol, and adjusting medications. ANNE WHITESIDE MD [facility] [phone] Subjective Loc Rocha is a 51 y.o. male. Patient denies any chest pain, shortness of breath at this time. Review of Systems: All other systems reviewed and are negative. Medications Scheduled Meds: apixaban (ELIQUIS) tablet 5 mg 5 mg Oral BID diltiazem CD (cardIZEM CD) capsule 180 mg 180 mg Oral QDAY duloxetine DR (CYMBALTA) capsule 60 mg 60 mg Oral QDAY metoprolol XL (TOPROL XL) tablet 50 mg 50 mg Oral QHS pneumococcal 23-madan vaccine (PPSV23) (PNEUMOVAX 23) injection 0.5 mL 0.5 mL Intramuscular ONCE potassium chloride SR (K-DUR) tablet 60 mEq 60 mEq Oral ONCE sotalol (BETAPACE) tablet 120 mg 120 mg Oral Q10H* Continuous Infusions: PRN and Respiratory Meds: Objective Vital Signs: Last Filed Vital Signs: 24 Hour Range BP: 133/86 (03/23 1199) Temp: 36.8 C (98.3 F) (03/23 1199) Pulse: 91 (03/23 1199) Respirations: 16 PER MINUTE (03/23 1199) SpO2: 95 % (03/23 1199) O2 Delivery: None (Room Air) (03/23 1199) BP: (113-147)/(71-86) Temp: [36.4 C (97.6 F)-36.8 C (98.3 F)] Pulse: [68-100] Respirations: [16 PER MINUTE-18 PER MINUTE] SpO2: [95 %-97 %] O2 Delivery: None (Room Air) Vitals: 03/22/17 1421 Weight: 105.2 kg (232 lb) Intake/Output Summary: (Last 24 hours) Intake/Output Summary (Last 24 hours) at 03/23/17 1427 Last data filed at 03/23/17 0800 Gross per 24 hour Intake 1300 ml Output 2575 ml Net -1275 ml Physical Exam General: Alert, cooperative, no distress, appears stated age Head: Normocephalic, without obvious abnormality, atraumatic Eyes: Conjunctivae/corneas clesar. PERRL, EOMs intact. Throat: Lips, mucosa and tongue normal. Teeth and gums normal Neck: Supple, symmetrical, trachea midline, no adenopathy, thyroid: no enlargement/tenderness/nodules Lungs: Clear to auscultation bilaterally, no rhonchi, crackles or wheezes Heart: Regular rate but irregular rhythm, S1, S2 normal, no murmur, click rub or gallop Abdomen: Soft, non-tender. Bowel sounds normal. No masses. No organomegaly. Extremities: Extremities normal, atraumatic, no cyanosis or edema Pulses: 2+ and symmetric, all extremities MEDICAL DETAIL REPRESENTATIVE: alert oriented to PPT , no focal neurologic deficit Skin: no rashes, skin warm and dry Lab Review Pertinent labs reviewed personally Point of Care Testing (Last 24 hours) Glucose: (!) 109 (03/23/17 0447) Radiology and other Diagnostics Review (Tele/EKG/Echo): Pertinent radiology reviewed. Anne Whiteside MD * Nhan Westbrook MD - 03/23/2017 11:32 AM DENTURE TECHNICIAN Formatting of this note may be different from the original. Electrophysiology Progress Note Admission Date: 03/22/2017 Today's Date: 03/23/2017 LOS: 1 day Assessment & Plan Loc Rocha is a 51 y.o. male patient with the following problems: Active Problems: HTN (hypertension) NATHALIE on CPAP A-fib (HCC) Encounter for monitoring sotalol therapy Assessment: Persistent symptomatic atrial fibrillationwhich progressed from paroxysmal atrial fibrillation in 2017 - chronic anticoagulation with Eliquis 5 mg bid - BLUEPRINT ENGINEER digoxin held on admission - BLUEPRINT ENGINEER dilt CD 180 mg daily resumed on admission - BLUEPRINT ENGINEER Toprol XL 100 mg daily reduced to 50 mg daily on admission - BLUEPRINT ENGINEER Multaq held x 3 days prior to admission - admit for Tikosyn initiation Left atrial appendage echodensity consistent with thrombus - BLU on admission showed resolution on Eliquis 5 mg bid Mild to severe mitral regurgitation Hypertension Congenital ASD status post surgical repair in 1998 with tissue patch Obstructive sleep apnea treated with CPAP Anxiety/depression Hiatal hernia status post surgical repair in 2003 Plan: QTc remains stable after 2nd dose of sotalol 120 mg (480 ms). Rates well controlled on metoprolol 50 mg daily and diltiazem CD 180 mg daily. Continue to hold digoxin. Plan for DCCV this afternoon. Will continue to monitor ECG 2 hours after each dose for a total of 5 monitored doses. Continuous telemetry. Keep Mg+ > 2.0 and K+ > 4.0. If ECG needs to be read prior to next dose, please page: Cardiology Night Fellow thru On-Call. Only page if next dose is due to be given, otherwise ECG will be read in the am. ATTESTATION/ADDENDUM: I have personally reviewed the history, seen and examined the pt. and the plan was formulated and discussed with CHAPARRITA Goyal. Comments and amends to the note were made. I personally performed the iglesias portions of the E/M visit, discussed case with Nurse Practitioner and concur with documentation of history, physical exam, assessment, and treatment plan unless otherwise noted. I am cautiously optimistic the patient will continue to tolerate the current dose of Sotalol. Await fifth dose tomorrow morning. Potential discharge tomorrow late morning/early afternoon. With the initiation of Sotalol we have stopped his digoxin, and reduce his Toprol-XL. This will continue at discharge. Maintaining sinus rhythm. Note--The Complexity of medical decision making is high due to the multi-system diseases present and the complexity the pt's current heart/rhythm condition with concerns including but not limited to complexity/severity and gravity of the patient's underlying cardiac illnesses and interplay of other issues. Nhan Westbrook MD Subjective: Awake and alert this am without complaints of palpitations, pain, dyspnea or lightheadedness. Medications Scheduled Meds: apixaban (ELIQUIS) tablet 5 mg 5 mg Oral BID duloxetine DR (CYMBALTA) capsule 60 mg 60 mg Oral QDAY metoprolol XL (TOPROL XL) tablet 50 mg 50 mg Oral QHS pneumococcal 23-madan vaccine (PPSV23) (PNEUMOVAX 23) injection 0.5 mL 0.5 mL Intramuscular ONCE potassium chloride SR (K-DUR) tablet 60 mEq 60 mEq Oral ONCE sotalol (BETAPACE) tablet 120 mg 120 mg Oral Q10H* Continuous Infusions: PRN and Respiratory Meds: Objective Vital Signs: Last Filed Vital Signs: 24 Hour Range BP: 144/85 (03/23 799) Temp: 36.6 C (97.9 F) (03/23 799) Pulse: 80 (03/23 799) Respirations: 16 PER MINUTE (03/23 799) SpO2: 97 % (03/23 799) O2 Delivery: None (Room Air) (03/23 799) Height: 170.2 cm (5' 7") (03/22 1421) BP: (95-147)/(54-86) Temp: [36.4 C (97.6 F)-36.7 C (98 F)] Pulse: [68-101] Respirations: [11 PER MINUTE-18 PER MINUTE] SpO2: [94 %-97 %] O2 Delivery: None (Room Air) Vitals: 03/22/17 1421 Weight: 105.2 kg (232 lb) Intake/Output Summary: (Last 24 hours) Intake/Output Summary (Last 24 hours) at 03/23/17 1132 Last data filed at 03/23/17 0800 Gross per 24 hour Intake 1300 ml Output 2575 ml Net -1275 ml Body mass index is 36.34 kg/m. Physical Exam GEN: no acute distress CHEST: clear to auscultation bilaterally HEART: irreg rhythm, nml rate; nml S1 & S2, no S3 or S4; no rub; no murmurs EXT: no c/c/e NEURO: A&Ox3 SKIN: warm and dry Lab Review Hematology: Lab Results Component Value Date HGB 14.1 03/23/2017 HCT 40.8 03/23/2017 PLTCT 187 03/23/2017 WBC 5.6 03/23/2017 MCV 86.9 03/23/2017 MCHC 34.6 03/23/2017 MPV 8.2 03/23/2017 RDW 13.2 03/23/2017 , General Chemistry: Lab Results Component Value Date NA 138 03/23/2017 K 3.4 03/23/2017 CL 103 03/23/2017 GAP 6 03/23/2017 BUN 10 03/23/2017 CR 0.93 03/23/2017 GLU 109 03/23/2017 CA 9.2 03/23/2017 MG 2.1 03/23/2017 and Endocrine: No results found for: QUEENIE, FREET4, TSH Telemetry AF with controlled V-rates ECG QTc after 2nd dose: AF with controlled V-rates [id number] ms QT-440 ms QTc-480 ms Mary Ann Long APRN-AIRPORT ATTENDANT (pgr [phone]) * Steven Chilel MBBS - 03/23/2017 5:44 AM DENTURE TECHNICIAN Brief cardiology update note Patient Name: Loc Rocha Age: 51 y.o. Sex: - Patient was started on sotalol 120 mg BID for Atrial fibrillation. - Baseline ECG at 10:58 AM has QTc of 481 msec. - After first dose QTc is 474 msec on ECG at 18:45 PM. - After second dose QTc is 495 msec on ECG at 4:32 AM. - No significant change noted. - It is ok to give next dose as scheduled. Steven VICTORIA MD. Development Technician [phone] * Tali Holden, RN - 03/22/2017 7:54 PM DENTURE TECHNICIAN 1954 Per NF, okyoko to give next dose at scheduled time, 0230. 0433 EKG completed following 2nd dose sotalol. Night fellow paged that EKG complete, pt still in afib. Next dose scheduled for 1230. 0540 AM potassium 3.4, Mg 2.1. MPM text paged update and that pt's code status has not been reviewed. 0545 Received all from . Misa to give next dose at 1230 * Steven Chilel MBBS - 03/22/2017 7:48 PM DENTURE TECHNICIAN Brief cardiology update note Patient Name: Loc Rocha Age: 51 y.o. Sex: - Patient was started on sotalol 120 mg BID for Atrial fibrillation. - Baseline ECG at 10:58 AM has QTc of 481 msec. - After first dose QTc is 474 msec on ECG at 18:45 PM. - No significant change noted. - It is ok to give next dose as scheduled. Steven VICTORIA MD. Development Technician [phone] * Tali Holden, RN - 03/22/2017 7:36 PM DENTURE TECHNICIAN 1930 During bedside safety check, pt told RN that he had taken 2 fish oil and 1 multivitamin pill with dinner. Team text paged with update. Pt education given. Pt knows not to take home meds while in patient unless cleared by pharmacy. in this encounter H&P Notes * Negar Cabrera MD - 03/22/2017 2:15 PM DENTURE TECHNICIAN Formatting of this note may be different from the original. Admission History and Physical Examination Name: Loc Rocha Admission Date: 03/22/2017 Assessment/Plan: Active Problems: HTN (hypertension) NATHALIE on CPAP A-fib (HCC) Encounter for monitoring sotalol therapy Parosxysmal AFib: - BLU 03/22 with resolution of LA thrombus while on eliquis. - plan to start sotalol and cardioversion tomorrow if not converted. EP consulted - baseline EKG 03/22 with Afib HR 90s and QTc 481, however likely 420s with manual calculation per EP. - monitor electrolytes. monitor on telemetry - holding digoxin, metoprolol and diltiazem in setting of sotalol initiation until EP evaluation HTN: - holding metoprolol and diltiazem as above until EP eval NATHALIE: - CPAP Depression: - on duloxetin Hx of congenital ASD s/p repair 1998 FEN: no IVF. lytes PRN. regular diet. NPO at [place] PPx: on eliquis Dispo: admit to medicine. telemetry highly complex decision making, including coordination with EP, closely monitor sotalol side effects, electrolytes, telemetry and EKGs while on sotalol, and adjusting medications. Negar Cabrera MD Internal Medicine [id number] __ Chief Complaint: sotalol initiation History of Present Illness: Loc Rocha is a 51 y.o. male with history of secondary ASD closure in 1998 and subsequent AFib, recent LA thrombus on eliquis , HTN, who underwent BLU today 03/22 that did not show any residual thrombus and is admitted for Sotalol initiation and Cardioversion on 03/23. Upon arrival, patient was feeling ok and denied any complaints to me. no palpitations or chest pain. 12 point ROS was obtained, remarkable for: no positive reported Negative for fever, chills ,cough, dyspnea, chest pain, palpitations, abd pain, nausea, vomiting, diarrhea, dysuria, rash. Past Medical History: Diagnosis Date A-fib (HCC) HTN (hypertension) Past Surgical History: Procedure Laterality Date ASD REPAIR 1998 Family History Problem Relation Age of Onset Hyperlipidemia Mother Hypertension Maternal Grandmother Coronary Artery Disease Maternal Grandmother Hypertension Maternal Grandfather Coronary Artery Disease Maternal Grandfather None Reported Father Unknown to Patient Sister Heart problem Maternal Uncle Pacemaker Maternal Uncle Heart Surgery Maternal Uncle bipass Unknown to Patient Paternal Grandmother Unknown to Patient Paternal Grandfather Unknown to Patient Sister Heart problem Maternal Uncle Social History Social History Marital status: Spouse name: N/A Number of children: N/A Years of education: N/A Social History Main Topics Smoking status: Never Smoker Smokeless tobacco: Current User Types: Snuff Alcohol use Yes Comment: occasionally Drug use: No Sexual activity: Not on file Other Topics Concern Not on file Social History Narrative No narrative on file Immunizations (includes history and patient reported): There is no immunization history on file for this patient. Allergies: Enalapril and Penicillins Medications: Prescriptions Prior to Admission Medication Sig apixaban (ELIQUIS) 5 mg tablet Take 5 mg by mouth twice daily. CLONAZEPAM (KLONOPIN PO) Take 0.25 mg by mouth twice daily. digoxin (LANOXIN) 125 mcg tablet Take 1 tablet by mouth daily. diltiazem CD (CARDIZEM CD) 180 mg capsule Take 180 mg by mouth daily. duloxetine DR (CYMBALTA) 60 mg capsule Take 60 mg by mouth daily. metoprolol XL (TOPROL XL) 100 mg extended release tablet Take 100 mg by mouth daily. MULTIVITAMIN (MULTIPLE VITAMIN PO) Take by mouth daily. Xpazb-6-WJP-EPA-Fish Oil (FISH OIL) 1,000 mg (120 mg-180 mg) cap Take 1 capsule by mouth three times daily. Physical Exam: Vital Signs: Last Filed In 24 Hours Vital Signs: 24 Hour Range BP: 140/86 (03/22 1420) Temp: 36.6 C (97.8 F) (03/22 1420) Pulse: 98 (03/22 1420) Respirations: 16 PER MINUTE (03/22 1420) SpO2: 95 % (03/22 1420) O2 Delivery: None (Room Air) (03/22 1420) Height: 170.2 cm (67") (03/22 1420) BP: (95-140)/(54-86) Temp: [36.6 C (97.8 F)] Pulse: [83-101] Respirations: [11 PER MINUTE-18 PER MINUTE] SpO2: [94 %-95 %] O2 Delivery: None (Room Air) GENERAL: No distress, AAOX3. HEENT: EOMI. No LAD. LUNGS: CTA b/l, no rhonchi, no wheezes, no crackles. HEART: irregular, S1S2 wnl, no murmur/rubs/gallops ABDOMEN: Soft, non distended, non tender, + BS EXTREMITIES: trace BLE edema. Distal pulses palpable SKIN: warm. dry. no rash noticed. NEURO: Speech fluent. no focal weakness noted PSYCH: normal judgment Lab/Radiology/Other Diagnostic Tests: 24-hour labs: No results found for this visit on 03/22/17 (from the past 24 hour(s)). Pertinent radiology reviewed. in this encounter Consult Notes * Nhan Westbrook MD - 03/22/2017 4:43 PM DENTURE TECHNICIAN Associated Order(s): CONSULT CARDIOLOGY PHYSICIAN Formatting of this note may be different from the original. Admission Date: 03/22/2017 Date of Consultation: 03/22/2017 LOS: 0 days Requesting Physician: Negar Cabrera MD Consulting Physician: Dr. Nhan Westbrook Code Status: Full Code Reason for Consultation Opinion and recommendations regarding antiarrhythmic medication initiation and loading Assessment: Persistent symptomatic atrial fibrillation which progressed from paroxysmal atrial fibrillation in 2017 - chronic anticoagulation with Eliquis 5 mg bid - BLUEPRINT ENGINEER digoxin held on admission - BLUEPRINT ENGINEER dilt CD 180 mg daily resumed on admission - BLUEPRINT ENGINEER Toprol XL 100 mg daily reduced to 25 mg daily on admission - BLUEPRINT ENGINEER Multaq held x 3 days prior to admission - admit for Tikosyn initiation Left atrial appendage echodensity consistent with thrombus - BLU on admission showed resolution on Eliquis 5 mg bid Mild to severe mitral regurgitation Hypertension Congenital ASD status post surgical repair in 1998 with tissue patch Obstructive sleep apnea treated with CPAP Anxiety/depression Hiatal hernia status post surgical repair in 2003 Recommendations: Will start sotalol 120 mg po bid. We will monitor ECG 2 hours after each dose x 5 total doses. Will plan for DCCV tomorrow if does not convert to sinus prior. Aim to keep Mg+ > 2.0 and K+ > 4.0 (will replace as needed). Continuous telemetry. Will follow along with you. If ECG needs to be reviewed after hours, please page: Cardiology [place] - Night Float thru [facility]. Please only call if next dose of antiarrhythmic is due, otherwise ECG will be reviewed in the morning. CHAPARRITA Goyal ([facility] [phone]) Heart Rhythm Management ([facility] [phone]) ATTESTATION/ADDENDUM: I have personally reviewed the history, seen and examined the pt. and the plan was formulated and discussed with CHAPARRITA Goyal. Comments and amends to the note were made. I personally performed the iglesias portions of the E/M visit, discussed case with Nurse Practitioner and concur with documentation of history, physical exam, assessment, and treatment plan unless otherwise noted. I discussed the plan, antiarrhythmic drug therapy, etc. with the patient. BLU today with no clot. We will proceed as described above with sotalol. Note--The Complexity of medical decision making is high due to the multi-system diseases present and the complexity and acuity of the pt's current heart/rhythm condition with concerns including but not limited to complexity/severity and gravity of the patient's underlying cardiac illnesses and interplay of other issues. History of Present Illness: Loc Rocha is a 51 y.o. male patient followed by Dr. Menendez in the MAC office. He has a history of PAF that has become more persistent despite Multaq therapy. He attempted DCCV last fall, however this was deferred due to LA thrombus. He has been treated with Eliquis since that time and echo on admission showed thrombus resolution. He is to be initiated on sotalol therapy. Past Medical History: Past Medical History: Diagnosis Date A-fib (HCC) Depression HTN (hypertension) NATHALIE (obstructive sleep apnea) Social History: Social History Social History Marital status: Spouse name: N/A Number of children: N/A Years of education: N/A Occupational History Not on file. Social History Main Topics Smoking status: Never Smoker Smokeless tobacco: Current User Types: Snuff Alcohol use Yes Comment: occasionally Drug use: No Sexual activity: Not on file Other Topics Concern Not on file Social History Narrative No narrative on file Surgical History: Past Surgical History: Procedure Laterality Date ASD REPAIR 1998 Family History: Family History Problem Relation Age of Onset Hyperlipidemia Mother Hypertension Maternal Grandmother Coronary Artery Disease Maternal Grandmother Hypertension Maternal Grandfather Coronary Artery Disease Maternal Grandfather None Reported Father Unknown to Patient Sister Heart problem Maternal Uncle Pacemaker Maternal Uncle Heart Surgery Maternal Uncle bipass Unknown to Patient Paternal Grandmother Unknown to Patient Paternal Grandfather Unknown to Patient Sister Heart problem Maternal Uncle Medications: apixaban (ELIQUIS) tablet 5 mg 5 mg Oral BID [START ON 03/23/2017] duloxetine DR (CYMBALTA) capsule 60 mg 60 mg Oral QDAY metoprolol XL (TOPROL XL) tablet 50 mg 50 mg Oral QHS sotalol (BETAPACE) tablet 120 mg 120 mg Oral Q10H* Allergies: Allergies Allergen Reactions Enalapril COUGH Penicillins UNKNOWN Review of Systems: Const: denies recent fever, chills, or weight loss Eyes: denies changes in vision Cardiovascular: denies chest pain or palpitations Respiratory: denies dyspnea, orthopnea, PND or productive cough Gastrointestinal: denies N/V/D Musculoskeletal: denies muscle aches or pains Skin: denies known rashes, lesions or sores Neurologic: denies dizziness, lightheadedness, syncope, or near-syncope Vital Signs: Most Recent Vital Signs: 24 Hour Range BP: 140/86 (02/06 1421) Temp: 36.6 C (97.8 F) (03/22 1420) Pulse: 94 (03/22 1614) Respirations: 16 PER MINUTE (03/22 1420) SpO2: 95 % (03/22 1420) O2 Delivery: None (Room Air) (03/22 1420) Height: 170.2 cm (5' 7") (03/22 1420) BP: (95-140)/(54-86) Temp: [36.6 C (97.8 F)] Pulse: [83-101] Respirations: [11 PER MINUTE-18 PER MINUTE] SpO2: [94 %-95 %] O2 Delivery: None (Room Air) Vitals: 03/22/17 1421 Weight: 105.2 kg (232 lb) No intake or output data in the 24 hours ending 03/22/17 1644 Physical Exam: GEN: well appearing 51 y.o. male who appears stated age and is no acute distress HEAD: normocephalic EYES: sclera non icteric MOUTH: PMMM LUNGS: CTA chayo. HEART: RRR without murmur or gallop appreciated EXTR: no C/C/E SKIN: warm and dry NEUR: A&Ox3 PSYCH: calm and cooperative Labs: Hematology: Lab Results Component Value Date HGB 15.5 03/22/2017 HCT 43.5 03/22/2017 PLTCT 202 03/22/2017 WBC 5.4 03/22/2017 MCV 87.2 03/22/2017 MCHC 35.6 03/22/2017 MPV 8.1 03/22/2017 RDW 13.3 03/22/2017 , General Chemistry: Lab Results Component Value Date NA 140 03/22/2017 K 3.9 03/22/2017 CL 104 03/22/2017 GAP 7 03/22/2017 BUN 10 03/22/2017 CR 1.03 03/22/2017 GLU 105 03/22/2017 CA 10.0 03/22/2017 MG 2.1 03/22/2017 and Endocrine: No results found for: QUEENIE, FREET4, TSH ECG: Baseline ECG shows AF with RVR and QTc 428 msec Telemetry: AF with RVR Anabelle Long, AIRPORT ATTENDANT-C [phone] in this encounter Miscellaneous Notes * Care Plan - Tali Holden, RN - 03/24/2017 5:02 AM DENTURE TECHNICIAN Problem: Discharge Planning Goal: Knowledge regarding plan of care Outcome: Goal Ongoing Per report, pt converted with a cardioversion to SR. Pt has remained in SR this shift. See NF note. Okay to give 5th dose as scheduled at 0830. Pt's spouse is in room and will be his ride home with discharge. Pt and spouse plan on calling case work aide before discharge to address more questions concerning advanced directive filled out this stay. Problem: Pain Goal: Management of pain Outcome: Goal Ongoing Pt has denied pain this shift. Problem: Respiratory Impairment (Non-Ventilated Patient) Goal: Effective gas exchange Outcome: Goal Ongoing Pt breathing symmetrical and nonlabored. Pt wore CPAP from home overnight and SpO2 was within normal limits. During day, pt is on RA. * Case Mgmt DC Plan - Lynette Hastings RN - 03/23/2017 2:39 PM DENTURE TECHNICIAN Formatting of this note may be different from the original. Case Management Admission Assessment NAME:Loc Rocha :1965 AGE: 51 y.o. ADMISSION DATE: 03/22/2017 DAYS ADMITTED: LOS: 1 day Todays Date: 03/23/2017 Source of Information: Pt, pt spouse, EMR Plan Plan: CM Assessment, Discharge Planning for Home Anticipated -NCM introduced self, explained role of CM, confirmed pt demographics and provided contact information. -Discussed plan of discharge with pt/pt spouse with pt consent. -No CM f/u needs identified at this time. -NCM will continue to follow for possible pt needs Emergency Contact Extended Emergency Contact Information Primary Emergency Contact: Dolores Rocha [facility] Mobile Relation: Spouse Secondary Emergency Contact: Meryl Zambrano [facility] Relation: Sister DPOA No. Pt and spouse relate that they are interested in completing a DPOA which they located in patients folder in room. NCM discussed with pt to wait to sign the form until there were two unrelated witnesses to the signature. Pt v/u. Transportation Does the patient need discharge transport arranged?: No Transportation Name, Phone and Availability #1: Dolores Rocha, spouse, [phone] Does the patient use Medicaid Transportation?: No Expected Discharge Expected Discharge Date: 03/25/17 Living Situation Prior to Admission ? Living Arrangements Type of Residence: Home, independent Living Arrangements: Spouse/significant other Bathroom Shower / Tub: Tub/Shower Unit Bathroom Toilet: Standard How many levels in the residence?: 1 (4 entry steps with handrails.) Can patient live on one level if needed?: Yes Support Systems: Spouse/Partner Home Care Services: No ? Level of Function Prior level of function: Independent ? Cognitive Abilities Cognitive Abilities: Alert and Oriented, Engages in problem solving and planning , Participates in decision making Financial Resources ? 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 Discussed VERTILAS program savings.) ? Source of Income Source Of Income: Employed ? Financial Assistance Needed? None identified. Current/Previous Services ? PCP Brian Pozo ? DME DME at home: CPAP/BiPAP (Pt states his CPAP supplier is [facility] in [facility]) ? Home Health Receiving home health: No ? HD or PD Undergoing hemodialysis or peritoneal dialysis: No ? Tube/Enteral Feeds Receive tube/enteral feeds: No ? Infusion Receive infusions: No ? Private Duty Private duty help used: No ? HCBS Home and community based services: No ? [facility]: No ? Hospice Hospice: No ? Outpatient Therapy PT: In the past When did patient receive care?: 1998 Name of rehab location/group: [facility] Would patient return for future services?: Yes OT: No STITCHER SPECIAL MACHINE: No ? SNF/NH SNF: No NH: No ? IPR IPR: No ? LTACH LTACH: No ? Acute Hospital Stay Acute Hospital Stay: In the past Was patient's stay within the last 30 days?: No Psychosocial Needs ? Mental Health Mental Health History: In the past Mental Health Symptoms: Feeling depressed, Other (comment) (anxiety) ? Substance History History Smoking Status Never Smoker Smokeless Tobacco Current User Types: Snuff History Alcohol Use Yes Comment: occasionally History Drug Use No ? Abuse/Sexual Assault Are You Alone With The Patient?: No Have You Ever Been Hit, Hurt Or Threatened In Any Way In The Past 5 Years?: No Nurse Suspected Abuse?: No Lynette Hastings RN BSN, [facility] Nurse Medical Or Surgical Instrument Maker Pager: [phone] * Care Plan - Tali Holden RN - 03/23/2017 6:44 AM DENTURE TECHNICIAN Problem: Discharge Planning Goal: Participation in plan of care Outcome: Goal Ongoing Pt and spouse updated on plan of care. Education given on low potassium levels and potassium-rich foods with educational material left in room. CV checklist and prep completed for potential cardioversion today, 03/23/17. Pt stated that on MyChart, cardioversion is scheduled for 1500. Will continue to monitor. Problem: Pain Goal: Management of pain Outcome: Goal Ongoing Pt has denied pain overnight. Will continue to monitor. Problem: Respiratory Impairment (Non-Ventilated Patient) Goal: Effective gas exchange Outcome: Goal Ongoing Pt breathing symmetrical and non-labored on room air when awake. Pt wears CPAP from home overnight due to NATHALIE. Cap refill < 3 seconds and SpO2 within normal limits * Care Coordination-Inpatient - Mukund Carbajal DO - 03/23/2017 5:33 AM DENTURE TECHNICIAN Transferring to [facility]. Page [phone] until 8am. in this encounter Plan of Treatment Not on fileas of this encounter Procedures Procedure Name Priority Date/Time Associated Diagnosis Comments ECG-SCAN 03/25/2017 Results for this 10:55 PM DENTURE TECHNICIAN procedure are in the results section. ECG-SCAN 03/25/2017 Results for this 10:55 PM DENTURE TECHNICIAN procedure are in the results section. ECG-SCAN 03/25/2017 Results for this 10:55 PM DENTURE TECHNICIAN procedure are in the results section. ECG-SCAN 03/25/2017 Results for this 10:55 PM DENTURE TECHNICIAN procedure are in the results section. ECG-SCAN 03/23/2017 Results for this 11:30 AM DENTURE TECHNICIAN procedure are in the results section. ECG-SCAN 03/23/2017 Results for this 11:30 AM DENTURE TECHNICIAN procedure are in the results section. in this encounter Results * ECG-SCAN (03/25/2017 10:55 PM) Narrative Ordered by an unspecified provider. * ECG-SCAN (03/25/2017 10:55 PM) Narrative Ordered by an unspecified provider. * ECG-SCAN (03/25/2017 10:55 PM) Narrative Ordered by an unspecified provider. * ECG-SCAN (03/25/2017 10:55 PM) Narrative Ordered by an unspecified provider. * MAGNESIUM (03/24/2017 3:53 AM) Component Value Ref Range Magnesium 2.3 1.6 - 2.6 mg/dL Specimen Performing Laboratory MA[facility] [address] [place] [address] * BASIC METABOLIC PANEL (03/24/2017 3:53 AM) Component Value Ref Range Sodium 142 137 [...] questions. Specimen Performing Laboratory MA[facility] [address] [place] [address] * CBC (03/24/2017 3:53 AM) Component Value Ref Range White Blood Cells [...] 7 - 11 FL Specimen Performing Laboratory MA[facility] [address] [place] [address] * CARDIOVERSION, EXTERNAL (03/23/2017 4:03 PM) Specimen Performing Laboratory OTHER OUTSIDE LAB Narrative DATE OF PROCEDURE:03/23/2017 PROCEDURE: DC Cardioversion. BARREL MAKER:Darrell Toledo MD INDICATION FOR PROCEDURE:The patient is [...] Narrative Ordered by an unspecified provider. * MAGNESIUM (03/23/2017 4:47 AM) Component Value Ref Range Magnesium 2.1 1.6 - 2.6 mg/dL Specimen Performing Laboratory MA[facility] [address] [place] [address] * BASIC METABOLIC PANEL (03/23/2017 4:47 AM) Component Value Ref Range Sodium 138 137 - 147 MMOL/L Potassium 3.4 (L) 3.5 - 5.1 MMOL/L Chloride 103 98 - 110 MMOL/L CO2 29 21 - 30 MMOL/L Anion Gap 6 3 - 12 Glucose 109 (H) 70 - 100 MG/DL Blood Urea Nitrogen 10 7 - 25 MG/DL Creatinine 0.93 0.4 - 1.24 MG/DL Calcium 9.2 8.5 - 10.6 MG/DL eGFR Non >60 [...] questions. Specimen Performing Laboratory MA[facility] [address] [place] [address] * CBC (03/23/2017 4:47 AM) Component Value Ref Range White Blood Cells 5.6 4.5 - 11.0 K/UL RBC 4.69 4.4 - 5.5 M/UL Hemoglobin 14.1 13.5 - 16.5 GM/DL Hematocrit 40.8 40 - 50 % MCV 86.9 80 - 100 FL MCH 30.0 26 - 34 PG MCHC 34.6 32.0 - 36.0 G/DL RDW 13.2 11 - 15 % Platelet Count 187 150 - 400 K/UL MPV 8.2 7 - 11 FL Specimen Performing Laboratory [facility] [address] [place] [address] * PHOSPHORUS (03/23/2017 4:47 AM) Component Value Ref Range Phosphorus 3.2 2.0 - 4.0 MG/DL Specimen Performing Laboratory MA[facility] [address] [place] [address] in this encounter Visit Diagnoses Diagnosis Persistent atrial fibrillation (HCC) - Primary Atrial fibrillation A-fib (HCC) Atrial fibrillation Encounter for monitoring sotalol therapy Encounter for therapeutic drug monitoring HTN (hypertension) Unspecified essential hypertension NATHALIE on CPAP Obstructive sleep apnea (adult) (pediatric) Admitting Diagnoses Diagnosis Atrial Fibrillation A-fib (HCC) Encounter for monitoring sotalol therapy Administered Medications Medication Order MAR Action Action Date Dose Rate Site apixaban (ELIQUIS) tablet 5 mg Given 03/23/2017 5 mg 5 mg, Oral, TWICE DAILY, First dose on 06:04 DENTURE TECHNICIAN Tue03/22/17 at 2100, Until Discontinued, NOTE: This is a HIGH ALERT Medication. Given 03/23/2017 5 mg 21:24 DENTURE TECHNICIAN Given 03/24/2017 5 mg 08:26 DENTURE TECHNICIAN clonazePAM (KLONOPIN) tablet 0.25 mg Given 03/23/2017 0.25 mg 0.25 mg, Oral, TWICE DAILY, First dose 21:25 DENTURE TECHNICIAN on Tue03/23/17 at 1515, Until Discontinued Given 03/24/2017 0.25 mg 08:26 DENTURE TECHNICIAN diltiazem CD (cardIZEM CD) capsule 180 Given 03/23/2017 180 mg mg 12:43 DENTURE TECHNICIAN 180 mg, Oral, DAILY, First dose on Tue03/23/17 at 1200, Until Discontinued Given 03/24/2017 180 mg 08:[address] (CYMBALTA) capsule 60 mg Given 03/23/2017 60 mg 60 mg, Oral, DAILY, First dose on Tue 06:04 DENTURE TECHNICIAN 03/23/17 at 0600, Until Discontinued, Swallow whole - DO NOT open or crush capsule Given 03/24/2017 60 mg 06:23 DENTURE TECHNICIAN metoprolol XL (TOPROL XL) tablet 50 mg Given 03/22/2017 50 mg 50 mg, Oral, AT BEDTIME DAILY, First 20:25 DENTURE TECHNICIAN dose on Tue03/22/17 at 2100, Until Discontinued, Hold for heart rate < 60 bpm tablets may be cut in half, DO NOT CRUSH or CHEW Given 03/23/2017 50 mg 21:24 DENTURE TECHNICIAN pneumococcal 23-madan vaccine (PPSV23) Given 03/23/2017 0.5 mL Arm, Left (PNEUMOVAX 23) injection 0.5 mL 18:08 DENTURE TECHNICIAN 0.5 mL, Intramuscular, ONCE - UNTIL ADMIN, 1 dose, Tue03/23/17 at 0900, Give when stable and afebrile x 24 hours. Can be given subcutaneous or IM. Per hospital protocol, please discuss risks and benefits with patient prior to administration of the vaccine(s). potassium chloride SR (K-DUR) tablet 20 Given 03/22/2017 20 mEq mEq 14:45 DENTURE TECHNICIAN 20 mEq, Oral, ONCE, 1 dose, Tue03/22/17 at 1430, Do NOT break or crush tablet potassium chloride SR (K-DUR) tablet 60 Given 03/23/2017 60 mEq mEq 06:04 DENTURE TECHNICIAN 60 mEq, Oral, ONCE, 1 dose, Tue03/23/17 at 0600, Do NOT break or crush tablet sotalol (BETAPACE) tablet 120 mg Given 03/23/2017 120 mg 120 mg, Oral, EVERY 10 HOURS, First dose 12:33 DENTURE TECHNICIAN on Tue03/22/17 at 1600, Until Discontinued Given 03/23/2017 120 mg 22:29 DENTURE TECHNICIAN Given 03/24/2017 120 mg 08:30 DENTURE TECHNICIAN in this encounter
--- OUTSIDE RECORDS SUMMARY | 2017-03-31 12:43 | XMS REPORT | Encounter Summary ---
Author Author [facility] Organization [facility] Address Unknown Phone Unavailable Care Team Providers Care Gis Programmer Name Role Phone Brian Pozo MD PCP Reason for Referral * Test Status Reason Specialty Diagnoses / Referred By Referred To Procedures Contact Contact No Auth Needed Cardiology Diagnoses Rusty Menendez Card Echopv Persistent MD [address] fibrillation [place], [place] ([facility]) [place] [address] [address] [place], [place] Phone: Vedicis [phone] TRANSESOPHAGEAL Phone: ECHOCARDIOGRAM [phone] [place] ECHO Fax: TRANSESOPHAG R-T [phone] 2D W/PRB IMG ACQUISJ I&R * Test Status Reason Specialty Diagnoses / Referred By Referred To Procedures Contact Contact No Auth Needed Cardiology Diagnoses Rusty Menendez Card Echopv Persistent MD Aster [address] fibrillation [place], [place] ([facility]) [place] [address] [address] [place], [place] Phone: Vedicis [phone] TRANSESOPHAGEAL Phone: ECHOCARDIOGRAM [phone] [place] ECHO Fax: TRANSESOPHAG R-T [phone] 2D W/PRB IMG ACQUISJ I&R Reason for Visit * Auth/Cert Status Reason Specialty Diagnoses / Referred By Referred To Procedures Contact Contact Diagnoses Atrial Fibrillation A-fib ([facility]) Encounter for monitoring sotalol therapy Encounter Details Date Type Department Care Team Description 03/22/2017 [facility] Cardiology Aster Menendez MD Encounter [address] [place] [address] [address] [place] [address] [phone] Social History Tobacco Use Types Packs/Day Years Used Date Never Smoker Smokeless Tobacco: Snuff Current User Alcohol Use Drinks/Week oz/Week Comments Yes occasionally Sex Assigned at Date Recorded Not on file as of this encounter Last Filed Vital Signs Vital Sign Reading Time Taken Blood Pressure 122/63 03/22/2017 12:45 PM VITICULTURE TEACHER Pulse 89 03/22/2017 12:45 PM VITICULTURE TEACHER Temperature - - Respiratory Rate - - Oxygen Saturation 94% 03/22/2017 12:45 PM VITICULTURE TEACHER Inhaled Oxygen - - Concentration Weight 107 kg (236 lb) 03/22/2017 11:02 AM VITICULTURE TEACHER Height 170.2 cm (5' 7") 03/22/2017 11:02 AM VITICULTURE TEACHER Body Mass Index 36.96 03/22/2017 11:02 AM VITICULTURE TEACHER in this encounter Medications at Time of [...] (MULTIPLE Take by mouth daily. VITAMIN PO) Mzfvu-9-RLB-EPA-Fish Oil Take 1 capsule by mouth (FISH OIL) 1,000 mg (120 three times daily. mg-180 mg) cap sotalol (BETAPACE) 120 mg Take 1 tablet by mouth 60 tablet 1 2017 tab twice daily. clonazePAM(+) (KLONOPIN) Dissolve 0.25 mg by mouth 03/24/2017 0.25 mg rapid dissolve twice daily. tablet digoxin (LANOXIN) 125 mcg Take 1 tablet by mouth 90 tablet 3 201703/24/2017 tablet daily. metoprolol XL (TOPROL XL) Take 100 mg by mouth 03/24/2017 100 mg extended release daily. tablet as of this encounter Progress Notes * Sasha Bird RN - 03/22/2017 11:18 AM VITICULTURE TEACHER Formatting of this note may be different from the original. Pre-Operative Assessment for BLU or Cardioversion Date of Service: 03/22/2017 Loc Rocha is a 51 y.o. y.o. male. : 1965 Procedure to be performed: BLU Expected Procedure Date: 03/22/17 Indication: A-fib with previous clot in LEÓN Patient appears alert and oriented: Yes NPO: for greater than 8 hours Inpatient IV status: see docflowsheet Isolation status: None Last BLU date: 02/01/17 Last Cardioversion date: None Anticoagulation Results Anticoagulant: apixaban (Eliquis) Missed dose: N/A Last MAC INR Flow Sheet Entry: Last recorded Lab results: No results found for: INR No results found for: PTT Allergies Allergies Allergen Reactions Enalapril COUGH Penicillins UNKNOWN Vitals Estimated body mass index is 36.96 kg/m as calculated from the following: Height as of this encounter: 1.702 m (5' 7"). Weight as of this encounter: 107 kg (236 lb). Diagnostic Tests White Blood Cells Date Value Ref Range Status 03/22/2017 5.4 4.5 - 11.0 K/UL Final Hemoglobin Date Value Ref Range Status 03/22/2017 15.5 13.5 - 16.5 GM/DL Final Hematocrit Date Value Ref Range Status 03/22/2017 43.5 40 - 50 % Final Platelet Count Date Value Ref Range Status 03/22/2017 202 150 - 400 K/UL Final Sodium Date Value Ref Range Status 03/22/2017 140 137 - 147 MMOL/L Final Potassium Date Value Ref Range Status 03/22/2017 3.9 3.5 - 5.1 MMOL/L Final Magnesium Date Value Ref Range Status 03/22/2017 2.1 1.6 - 2.6 mg/dL Final Blood Urea Nitrogen Date Value Ref Range Status 03/22/2017 10 7 - 25 MG/DL Final Creatinine Date Value Ref Range Status 03/22/2017 1.03 0.4 - 1.24 MG/DL Final Glucose Date Value Ref Range Status 03/22/2017 105 (H) 70 - 100 MG/DL Final Blood Cultures Resulted Micro Last 72 Hrs No results found Echo procedures within the past 30 days: No results found. Device Information on File No results found for: GENERATOR, EPDEVTYP Current Medications Current Outpatient Prescriptions on File Prior to Encounter Medication Sig Dispense Refill apixaban (ELIQUIS) 5 mg tablet Take 5 mg by mouth twice daily. CLONAZEPAM (KLONOPIN PO) Take 0.25 mg by mouth twice daily. digoxin (LANOXIN) 125 mcg tablet Take 1 tablet by mouth daily. 90 tablet 3 diltiazem CD (CARDIZEM CD) 180 mg capsule Take 180 mg by mouth daily. duloxetine DR (CYMBALTA) 60 mg capsule Take 60 mg by mouth daily. metoprolol XL (TOPROL XL) 100 mg extended release tablet Take 100 mg by mouth daily. MULTIVITAMIN (MULTIPLE VITAMIN PO) Take by mouth daily. Utfsi-7-YLD-EPA-Fish Oil (FISH OIL) 1,000 mg (120 mg-180 mg) cap Take 1 capsule by mouth three times daily. No current facility-administered medications on file prior to encounter. Past Medical History No past medical history on file. Past Surgical History No past surgical history on file. Social History Social History Substance Use Topics Smoking status: Never Smoker Smokeless tobacco: Current User Types: Snuff Alcohol use Yes Comment: occasionally Additional Comments: None Probe Assessment (only for BLU procedures): Positive for: Hiatal hernia repair Sedation Assessment: Positive for: Sleep Apnea/NATHALIE, CPAP, Smoker and Chronic Pain Meds * Sasha Bird RN - 03/22/2017 11:17 AM VITICULTURE TEACHER Formatting of this note may be different from the original. Care Plan Care Category & Patient Outcome Goal Met Treatment/ Interventions Plan of the Day RN Name Cardiovascular Hemodynamic stability and adequate peripheral perfusion. Yes Refer to patient's chart. Monitor VS per sedation standard. Monitor ECG continuously. Assess/maintain IV patency. Sasha Bird RN Respiratory Patent airway, ease of respiration, and adequate oxygenation. Yes Refer to patient's chart. Maintain open airway. Assess respirations. Monitor O2 saturations. Titrate O2 to keep sat>=95% or baseline. Sasha Bidr RN Psychological/Emotional/Spiritual [place] with procedure with support in place. Spiritual needs are addressed. Yes Refer to patient's chart. Provide adequate and thorough instructions. Provide a caring and supportive environment. Communicate patients concerns with other members of the health team. Sasha Bird RN Pain Patients pain goal met. Yes Refer to patient's chart. Prepare patient for potentially uncomfortable procedure. Observe for verbal/nonverbal complaints of pain. Assess pain. Provide comfort measures. Sasha Bird RN Safety/Fall Risk Free from injury, security maintained. Yes High Risk Refer to patient's chart. Follow nursing standard of practice for high risks fall patients. Sasha Bird RN Knowledge Base Verbalize understanding of procedure/information provided. Yes Refer to patient's chart. Describe the procedure along with what symptoms to expect. Evaluate patients understanding of procedure. Encourage patient to ask questions. Provide additional information as needed. Sasha Bird RN * Sasha Bird RN - 03/22/2017 11:00 AM VITICULTURE TEACHER EKG reviewed and ok'd by Anabelle Long for [facility] admission. in this encounter Plan of Treatment Not on fileas of this encounter Results * TRANSESOPHAGEAL ECHOCARDIOGRAM (03/22/2017 12:04 PM) Component Value Ref Range BSA 2.25 m2 CV ECHO PV COIL WINDER STRAP BEBA Brooks, Anesthesia ECHO EF 60 % Specimen Performing Laboratory OTHER OUTSIDE LAB Narrative 1.Markedly dilated left atrium.No thrombus. 2.Moderately dilated right atrium.No thrombus. 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 4.Moderately dilated right ventricle.Normal ejection fraction. Central jet of mild, functional, tricuspid regurgitation. 5.Rhythm is atrial fibrillation. in this encounter Visit Diagnoses Diagnosis Persistent atrial fibrillation (HCC) Atrial fibrillation
--- OUTSIDE RECORDS SUMMARY | 2017-03-31 12:43 | XMS REPORT | Encounter Summary ---
Author Author [facility] Organization [facility] Address Unknown Phone Unavailable Care Team Providers Care Bucket Wash Operator Name Role Phone Brian Pozo MD PCP Encounter Details Date Type Department Care Team Description 03/23/2017 Pharmacy Visit [facility] [address] [place] [address] Social History Tobacco Use Types Packs/Day Years [...]
--- OUTSIDE RECORDS SUMMARY | 2017-03-31 12:43 | XMS REPORT | Encounter Summary ---
Author Author [facility] Organization [facility] Address Unknown Phone Unavailable Care Team Providers Care Personnel Security Assistant Name Role Phone Brian Pozo MD PCP Reason for Visit * Reason Comments Medication Update Encounter Details Date Type Department Care Team Description 02/21/2017 Telephone [facility] Cardiology Melissa Hoffman RN Medication Update [address] [place] [address] Social History Tobacco Use Types Packs/Day Years Used Date Never Smoker Smokeless Tobacco: Snuff Current User Alcohol Use Drinks/Week oz/Week Comments Yes occasionally Sex Assigned at Date Recorded Not on file as of this encounter Miscellaneous Notes * Telephone Encounter - Melissa Hoffman RN - 02/21/2017 12:16 PM TAXATION ECONOMIST Per documentation, Multaq was discontinued 01/17/17. Called and spoke with Luke pharmacist at [facility] with this information. Okay to fill digoxin. * Telephone Encounter - Melissa Hoffman RN - 02/21/2017 12:16 PM TAXATION ECONOMIST ----- Message from Renuka Gaxiola sent at 02/21/2017 12:07 PM TAXATION ECONOMIST ----- Regarding: [facility] that [facility] and Multaq are [facility]indicated, still go ahead with Digoxin? [phone] is the call back. in this encounter Plan of Treatment Not on fileas of this encounter Visit Diagnoses Not on filein this encounter
--- OUTSIDE RECORDS SUMMARY | 2017-03-31 12:43 | XMS REPORT | Encounter Summary ---
Author Author [facility] Organization [facility] Address Unknown Phone Unavailable Care Team Providers Care Hoop Riveting Machine Operator Helper Name Role Phone Brian Pozo MD PCP Encounter Details Date Type Department Care Team Description 03/21/2017 Pre-Admit XDD CARDIOLOGY Britta Sandoval, NAVAL INSPECTOR Atrial fibrillation, Orders Only [address] unspecified type (HCC) [place] [address] (Primary Dx) [place] [address] Social History Tobacco Use Types Packs/Day Years Used Date Never Smoker Smokeless Tobacco: Snuff Current User Alcohol Use Drinks/Week oz/Week Comments Yes occasionally Sex Assigned at Date Recorded Not on file as of this encounter Plan of Treatment Not on fileas of this encounter Visit Diagnoses Diagnosis Atrial fibrillation, unspecified type (HCC) - Primary
--- OUTSIDE RECORDS SUMMARY | 2017-03-31 12:43 | XMS REPORT | Encounter Summary ---
Author Author [facility] Organization [facility] Address Unknown Phone Unavailable Care Team Providers Care Diet Counselor Name Role Phone rBian Pozo MD PCP Reason for Visit * Reason Comments Atrial fibrillation Patient wants to talk about atrial clot/LAAA Encounter Details Date Type Department Care Team Description 02/21/2017 Office Visit [facility] Aster Menendez MD Atrial fibrillation [address] [place] [address] (Patient wants to talk [address] [place] [address] about atrial clot/LAAA) [id number] [phone] Social History Tobacco Use Types Packs/Day Years Used Date Never Smoker Smokeless Tobacco: Snuff Current User Alcohol Use Drinks/Week oz/Week Comments Yes occasionally Sex Assigned at Date Recorded Not on file as of this encounter Last Filed Vital Signs Vital Sign Reading Time Taken Blood Pressure 132/80 02/21/2017 9:46 AM GRAPE PRUNER Pulse 106 02/21/2017 9:46 AM GRAPE PRUNER Temperature - - Respiratory Rate - - Oxygen Saturation - - Inhaled Oxygen - - Concentration Weight 107.1 kg (236 lb 3.2 oz) 02/21/2017 9:46 AM GRAPE PRUNER Height 170.2 cm (5' 7") 02/21/2017 9:46 AM GRAPE PRUNER Body Mass Index 36.99 02/21/2017 9:46 AM GRAPE PRUNER in this encounter Progress Notes * Aster Menendez MD - 02/21/2017 10:00 AM GRAPE PRUNER Formatting of this note may be different from the original. Date of Service: 02/21/2017 Loc Rocha is a 51 y.o. male. HPI I had the pleasure of seeing your patient in our office today for cardiac electro physiology FOLLOW UP consultation regarding persistent atrial fibrillation and history of ASD repair. As you recall dear Dr. Johnson, your patient is a 51-year-old gentleman with known history of hypertension for about 20 years, history of congenital ASD discovered in 1998 requiring surgical repair in [facility] after prolonged struggle with symptoms of shortness of breath weakness and fatigue for a few years, history of irregular palpitations for several years until they increased in intensity approximately 3-4 years ago. He was diagnosed with atrial fibrillation at that time. He also has obstructive sleep apnea treated with CPAP for the last 1 month. He also has a anxiety and depression. He does use tobacco for sloughing. When he started having increasing symptoms of fatigue, palpitations, change in color, chest pressure he was diagnosed with atrial fibrillation and initiated on metoprolol diltiazem and Eliquis. Subsequently, since his chads vascular score is lower Eliquis was discontinued. More recently he presented with the persistent atrial fibrillation with symptoms and therefore he was recommended a BLU guided cardioversion. However on November 24, with BLU there was a thrombus located in the left atrial appendage and therefore cardioversion was canceled. He was at that point initiated on Eliquis 5 mg twice daily and referred for further management here. His Multaq was continued. His family history significant for maternal uncles and grandparents having heart disease at a young age. Including heart attacks noted in grandfather at the age of 61. He drinks coffee one cup per day. Next As mentioned above he chews persistent snuff tobacco twice a day. Does not consume alcohol. Past surgical history includes hiatal hernia/umbilical hernia repair in 2003. Based on my evaluation I recommended that he undergo BLU guided cardioversion since he was already on anticoagulation for 2 months since the last of thrombus documentation. On February 01, 2017, he underwent BLU which showed evidence of dense spontaneous echo contrast in the left atrial appendage with impending thrombus suggesting his previous thrombus was not completely resolved. Therefore cardioversion was canceled and his Eliquis dose was doubled for a week. He is here to discuss further course of action. He tells me that he is continues to be very symptomatic with atrial fibrillation with episodes of significant shortness of breath. He is very anxious about it and his shares that anxiety. They have heard about several close friends we have gone through serious illnesses recently and that seemed to be playing a role in that anxiety. ASSESSMENT AND PLAN: I reviewed his 12-lead EKG which shows persistent atrial fibrillation with ventricular response around 106 bpm, QRS 88, QTc 4 and 84 ms. BLU report was reviewed which showed normal LV systolic function left atrial appendage spontaneous echo contrast documented. Mitral regurgitation was called mild compared to prior BLU. Stress test was performed in November 2016 and it was negative for any ischemia. Mild decreased uptake in the mid to apical anterolateral wall was noted but was not thought to be significant. 1. Persistent symptomatic atrial fibrillation which progressed from paroxysmal atrial fibrillation in 2017 2. Left atrial appendage echodensity consistent with thrombus with most recent LBU showing spontaneous echo contrast 3. Mild to severe mitral regurgitation 4. Long-standing hypertension 5. Congenital ASD status post surgical repair in 1998 with tissue patch 6. Obstructive sleep apnea treated with CPAP Anxiety/depression Hiatal hernia status post surgical repair in 2003 At this point I would like to recommend that he undergo another BLU guided cardioversion in the hospital once he has been on anticoagulant agent for 2 months, probably around March. He will be admitted for sotalol initiation after the cardioversion. His diltiazem and metoprolol doses may have to be adjusted once sotalol was initiated. He has been off Multaq. I also discussed potential options including ablation for long-term basis which she is interested to talk about. He could also be a candidate for hybrid type of procedure. However, surgical approach would be difficult due to prior open heart surgery. Thank you for letting us participate in the care of your patient. Vitals: 02/21/17 0946 BP: 132/80 Pulse: 106 Weight: 107.1 kg (236 lb 3.2 oz) Height: 1.702 m (5' 7") Body mass index is 36.99 kg/(m^2). Past Medical History Patient Active Problem List Diagnosis Date Noted Chews tobacco 02/01/2017 Persistent atrial fibrillation (HCC) 01/17/2017 HTN (hypertension) 01/17/2017 NATHALIE on CPAP 01/17/2017 Congenital atrial septal defect 01/17/2017 Repaired 1998 Maxx ASHRAF. Review of Systems Constitution: Negative. HENT: Negative. Eyes: Negative. Cardiovascular: Negative. Respiratory: Negative. Endocrine: Negative. Hematologic/Lymphatic: Negative. Skin: Negative. Musculoskeletal: Negative. Gastrointestinal: Negative. Genitourinary: Negative. Neurological: Negative. Psychiatric/Behavioral: Negative. Allergic/Immunologic: Negative. Physical Exam Patient is a moderately well-built gentleman who is comfortable at rest, not in any distress. Sclerae anicteric. The oral mucosa is moist and pink. Neck is supple without any lymphadenopathy. Lungs are clear to auscultation bilaterally. Breath sounds are normal. Cardiac exam reveals normal S1, S2 with irregular rate and rhythm. No murmurs, rubs or gallops noted. Abdomen: Soft, nontender, nondistended. Bowel sounds are present. Extremities: No cyanosis, clubbing or edema. Peripheral pulses are symmetric. Skin without any rash. . No gross motor or neuro deficits. Cardiovascular Studies Problems Addressed Today Encounter Diagnoses Name Primary? Persistent atrial fibrillation (HCC) Yes Assessment and Plan As above in HPI section. Current Medications (including today's revisions) apixaban (ELIQUIS) 5 mg tablet Take 5 [...] (MULTIPLE VITAMIN PO) Take by mouth daily. Ylghe-7-OXR-EPA-Fish Oil (FISH OIL) 1,000 mg (120 mg-180 mg) cap Take 1 capsule by mouth three times daily. in this encounter Plan of Treatment Name Priority Associated Diagnoses Order Schedule ECG 12-LEAD Routine Persistent atrial Ordered: 02/21/2017 fibrillation (HCC) as of this encounter Visit Diagnoses Diagnosis Persistent atrial fibrillation (HCC) - Primary Atrial fibrillation
--- OUTSIDE RECORDS SUMMARY | 2017-03-31 12:43 | XMS REPORT | Encounter Summary ---
Author Author [facility] Organization [facility] Address Unknown Phone Unavailable Care Team Providers Care Tour Counselor Name Role Phone Brian Pozo MD PCP Encounter Details Date Type Department Care Team Description 02/01/2017 [facility] Cardiology Mercy Linton MD Encounter [address] [place] [address] [place] [address] [place] [address] [place] [address] [phone] Social History Tobacco Use Types Packs/Day Years Used Date Never Smoker Smokeless Tobacco: Snuff Current User Alcohol Use Drinks/Week oz/Week Comments Yes occasionally Sex Assigned at Date Recorded Not on file as of this encounter Medications at Time of Discharge Medication Sig. Disp. Refills Start Date End Date apixaban (ELIQUIS) 5 mg Take 5 mg by mouth twice tablet daily. CLONAZEPAM (KLONOPIN PO) Take 0.25 mg by mouth twice daily. diltiazem CD (CARDIZEM Take 180 mg by mouth CD) 180 mg capsule daily. duloxetine [address] (CYMBALTA) Take 60 mg by mouth 60 mg capsule daily. MULTIVITAMIN (MULTIPLE Take by mouth daily. VITAMIN PO) Eqvfc-2-AED-EPA-Fish Oil Take 1 capsule by mouth (FISH OIL) 1,000 mg (120 three times daily. mg-180 mg) cap metoprolol XL (TOPROL XL) Take 100 mg by mouth 03/24/2017 100 mg extended release daily. tablet as of this encounter Plan of Treatment Not on fileas of this encounter Results * MAGNESIUM (02/01/2017 8:45 AM) Component Value Ref Range Magnesium 2.3 1.6 - 2.6 mg/dL Specimen Performing Laboratory [facility] [address] [place] [address] * CBC (02/01/2017 8:45 AM) Component Value Ref Range White Blood Cells 5.8 4.5 - 11.0 K/UL RBC 4.92 4.4 - 5.5 M/UL Hemoglobin 15.0 13.5 - 16.5 GM/DL Hematocrit 43.2 40 - 50 % MCV 87.8 80 - 100 FL MCH 30.5 26 - 34 PG MCHC 34.7 32.0 - 36.0 G/DL RDW 13.1 11 - 15 % Platelet Count 210 150 - 400 K/UL MPV 8.9 7 - 11 FL Specimen Performing Laboratory [facility] [address] [place] [address] * BASIC METABOLIC PANEL (02/01/2017 8:45 AM) Component Value Ref Range Sodium 142 137 - 147 MMOL/L Potassium 3.7 3.5 - 5.1 MMOL/L Chloride 106 98 - 110 MMOL/L CO2 29 21 - 30 MMOL/L Anion Gap 7 3 - 12 Glucose 98 70 - 100 MG/DL Blood Urea Nitrogen 9 7 - 25 MG/DL Creatinine 0.80 0.4 - 1.24 MG/DL Calcium 9.5 8.5 - 10.6 MG/DL eGFR Non >60 [...] Clinical Pharmacist for questions. Specimen Performing Laboratory [facility] [address] [place] [address] in this encounter Visit Diagnoses Diagnosis Persistent atrial fibrillation (HCC) Atrial fibrillation
--- OUTSIDE RECORDS SUMMARY | 2017-03-31 12:43 | XMS REPORT | Encounter Summary ---
Author Author [facility] Organization [facility] Address Unknown Phone Unavailable Care Team Providers Care Workers Compensation Claims Specialist Name Role Phone Brian Pozo MD PCP Reason for Visit * Reason Comments Precertification Approval for Inpatient Sotalol Initiation through [place] Encounter Details Date Type Department Care Team Description 03/07/2017 Documentation [facility] Fabien Alejandre, RN Precertification [address] (Approval for Inpatient [address] [place] [address] through [employer] [place]) [phone] Social History Tobacco Use Types Packs/Day Years Used Date Never Smoker Smokeless Tobacco: Snuff Current User Alcohol Use Drinks/Week oz/Week Comments Yes occasionally Sex Assigned at Date Recorded Not on file as of this encounter Progress Notes * Fabien Alejandre, RN - 03/07/2017 3:50 PM SJ Canales with [employer] [place], , confirmed benefits and eligibility: Current and active since 11/14/2016, $1500 deductible with required co-insurance of 20% to max OOP $1000, then plan will pay 100% of allowable charges. Pre- certification through Medical Review Team, , is required for Inpatient Sotalol Initiation. Reference #[id number] Joni, clinical review nurse for Medical Review Team, after discussion and review gave approval for 2 inpatient days. Date of admission 03/22/2017, concurrent review or discharge anticipated on 03/24/2017. Authorization #[id number] in this encounter Plan of Treatment Not on fileas of this encounter Visit Diagnoses Not on filein this encounter
--- OUTSIDE RECORDS SUMMARY | 2017-03-31 12:43 | XMS REPORT | Encounter Summary ---
Author Author [facility] Organization [facility] Address Unknown Phone Unavailable Care Team Providers Care Automotive Hardware Engineer Name Role Phone Brian Pozo MD PCP Encounter Details Date Type Department Care Team Description 02/01/2017 Anesthesia [facility] Benito Holden, EVALUATION ANALYST [address] [place] [address] [place] [address] [phone] Anesthesia Record Procedure Name Responsible Anesthesia Start Time Anesthesia Stop Time Anesthesiologist TRANSESOPHAGEAL Alexandra Marr MD 02/01/17 1006 02/01/17 1036 ECHOCARDIOGRAM Date Time Event Comment 955 AN Equip Check 2016 0957 An Start Data 0957 Start Supplemental O2 1000 Anesthesia Ready 1006 Anes Start 1035 Handoff to RN I completed my SBAR handoff to the receiving nurse. 1036 an stop data 1036 An Stop Meds Name Total fentaNYL PF (SUBLIMAZE) injection 50 mcg propofol (DIPRIVAN) 200 mg/ 20 mL 200 mg injection (VIAL) propofol (DIPRIVAN) infusion 200 mg 125.76 mg sodium chloride 0.9 % infusion (500 250 mL mL bag) * Name O2 * No blood administrations on file. No LDAs on file. in this encounter Social History Tobacco Use Types Packs/Day Years Used Date Never Smoker Smokeless Tobacco: Snuff Current User Alcohol Use Drinks/Week oz/Week Comments Yes occasionally Sex Assigned at Date Recorded Not on file as of this encounter OR Notes * Anesthesia Postprocedure Evaluation - Alexandra Marr MD - 02/01/2017 10:54 AM ENVIRONMENTAL CONTROL ADMINISTRATOR Post-Anesthesia Evaluation Name: Loc Rocha : 1965 Age: 51 y.o. Sex : male Procedure Date: 02/01/2017 Procedure: * No procedures listed * Surgeon: * No surgeons listed * Post-Anesthesia Vitals BP: 132/88 (02/01 1051) Pulse: 85 (02/01 1051) Respirations: 16 PER MINUTE (02/01 105) SpO2: 95 % (02/01 1051) O2 Delivery: None (Room Air) (02/01 105) Height: 170.2 cm (67") (02/01 1039) Post Anesthesia Evaluation Note Evaluation location: pre/post Patient participation: recovered; patient participated in evaluation Level of consciousness: alert Pain management: adequate Hydration: normovolemia Temperature: 36.0C - 38.4C Airway patency: adequate Perioperative Events Perioperative events: no Postoperative Status Cardiovascular status: hemodynamically stable Respiratory status: spontaneous ventilation Perioperative Events Perioperative Event: No Emergency Case Activation: No * Anesthesia Preprocedure Evaluation - Benito Holden CRNA - 02/01/2017 9:45 AM ENVIRONMENTAL CONTROL ADMINISTRATOR Formatting of this note may be different from the original. Anesthesia Pre-Procedure Evaluation Name: Loc Rocha : 1965 Age: 51 y.o. Sex : male Procedure Date: * No surgery found * Procedure: * No surgery found * Physical Assessment Vital Signs (last filed in past 24 hours): BP: 138/85 (02/02 936) Pulse: 87 (02/02 936) Respirations: 14 PER MINUTE (02/02 936) SpO2: 97 % (02/02 936) O2 Delivery: Nasal Cannula (02/02 936) Height: 170.2 cm (67") (02/01 933) Weight: 104.8 kg (231 lb) (02/01 933) Patient History Allergies Allergen Reactions Enalapril COUGH Penicillins UNKNOWN Current Medications Medication Directions apixaban (ELIQUIS) 5 mg tablet Take 5 mg by mouth twice daily. CLONAZEPAM (KLONOPIN PO) Take 0.25 mg by mouth twice daily. diltiazem CD (CARDIZEM CD) 180 mg capsule Take 180 mg by mouth daily. duloxetine DR (CYMBALTA) 60 mg capsule Take 60 mg by mouth daily. metoprolol XL (TOPROL XL) 100 mg extended release tablet Take 100 mg by mouth daily. MULTIVITAMIN (MULTIPLE VITAMIN PO) Take by mouth daily. Ucgbu-7-DGV-EPA-Fish Oil (FISH OIL) 1,000 mg (120 mg-180 mg) cap Take 1 capsule by mouth three times daily. Review of Systems/Medical History Patient summary reviewed Nursing notes reviewed Pertinent labs reviewed PONV Screening: Non-smoker No history of anesthetic complications No family history of anesthetic complications Airway - negative Pulmonary Sleep apnea Interventions: CPAP Cardiovascular Exercise tolerance: >4 METS Beta Avni therapy: Yes Beta blockers within 24 hours: Yes Hypertension, Dysrhythmias; atrial fibrillation Neuro/Psych - negative Endocrine/Other - negative Physical Exam Airway Findings Mallampati: II TM distance: >3 FB Neck ROM: full Mouth opening: good Airway patency: adequate Cardiovascular Findings: Rhythm: irregular Pulmonary Findings: Negative Abdominal Findings: Obese Diagnostic Tests Hematology: Lab Results Component Value Date HGB 15.0 02/01/2017 HCT 43.2 02/01/2017 PLTCT 210 02/01/2017 WBC 5.8 02/01/2017 MCV 87.8 02/01/2017 MCH 30.5 02/01/2017 MCHC 34.7 02/01/2017 MPV 8.9 02/01/2017 RDW 13.1 02/01/2017 General Chemistry: Lab Results Component Value Date NA 142 02/01/2017 K 3.7 02/01/2017 CL 106 02/01/2017 CO2 29 02/01/2017 GAP 7 02/01/2017 BUN 9 02/01/2017 CR 0.80 02/01/2017 GLU 98 02/01/2017 CA 9.5 02/01/2017 MG 2.3 02/01/2017 Coagulation: No results found for: PT, PTT, INR Anesthesia Plan ASA score: 2 Plan: MAC Special equipment/procedures: BLU Induction method: intravenous NPO status: acceptable Informed Consent Anesthetic plan and risks discussed with patient. Use of blood products discussed with patient; consented to blood products. Plan discussed with: anesthesiologist and EVALUATION ANALYST. in this encounter Plan of Treatment Not on fileas of this encounter Visit Diagnoses Not on filein this encounter Administered Medications Medication Order MAR Action Action Date Dose Rate Site fentaNYL citrate PF (SUBLIMAZE) Given 02/01/2017 25 mcg injection 10:07 ENVIRONMENTAL CONTROL ADMINISTRATOR INTRA-PROCEDURE MED, Starting 02/01/17 at 1007, Until 02/01/17 at 1036, Pain Injectable, Anesthesia Intra-op Given 02/01/2017 25 mcg 10:11 ENVIRONMENTAL CONTROL ADMINISTRATOR propofol (DIPRIVAN) infusion 200 mg Given - New 02/01/2017 100 62.9 mL /hr 200 mg Bag 10:15 ENVIRONMENTAL CONTROL ADMINISTRATOR mcg/kg/min 20 mL, Intravenous, INTRA-PROCEDURE MED(CONT), Starting 02/01/17 at 1015, Until 02/01/17 at 1036, Anesthesia Intra-op propofol (DIPRIVAN) injection Given 02/01/2017 20 mg INTRA-PROCEDURE MED, Starting Tue 10:13 ENVIRONMENTAL CONTROL ADMINISTRATOR 02/01/17 at 1006, Until 02/01/17 at 1036, Anesthesia Intra-op Given 02/01/2017 20 mg 10:14 ENVIRONMENTAL CONTROL ADMINISTRATOR Given 02/01/2017 10 mg 10:15 ENVIRONMENTAL CONTROL ADMINISTRATOR sodium chloride 0.9 % infusion Given - New 02/01/2017 INTRA-PROCEDURE MED(CONT), Starting Tue Bag 09:57 ENVIRONMENTAL CONTROL ADMINISTRATOR 02/01/17 at 0957, Until 02/01/17 at 1036, Anesthesia Intra-op in this encounter
--- OUTSIDE RECORDS SUMMARY | 2017-03-31 12:43 | XMS REPORT | Encounter Summary ---
Author Author [facility] Organization [facility] Address Unknown Phone Unavailable Care Team Providers Care Motel Manager Name Role Phone Brian Pozo MD PCP Reason for Visit * Auth/Cert Status Reason Specialty Diagnoses / Referred By Referred To Procedures Contact Contact Diagnoses Atrial Fibrillation A-fib (HCC) Encounter for monitoring sotalol therapy Encounter Details Date Type Department Care Team Description 03/23/[address] [facility] Lilia Aguilar, FOOD SERVICE WORKER [address] [place] [address] [address] [place] [address] [phone] Anesthesia Record Procedure Name Responsible Anesthesia Start Time Anesthesia Stop Time Anesthesiologist CARDIOVERSION, Marcello Bajwa MD 03/23/17 1555 03/23/17 1606 Date Time Event Comment 1554 AN Equip Check 2017 155 Anes Start 1555 An Start Data 1555 Start Supplemental O2 1556 Anesthesia Ready 1601 Quick Note Gauze bite block placed 1602 Cardioversionar 200 joules av 1603 an stop data SV, vSS, patient alert and responsive. 1603 Handoff to RN I completed my SBAR handoff to the receiving nurse. 1606 An Stop Meds Name Total propofol (DIPRIVAN) 200 mg/ 20 mL 70 mg injection (VIAL) sodium chloride 0.9 % infusion (500 50 mL mL bag) * Name O2 * No blood administrations on file. Type Details Placement Removal Peripheral 03/22/17; 1116; L; Hand; 20 G; 1 03/22/17 1116 by DELORES Bird RN in this encounter Social History Tobacco Use Types Packs/Day Years Used Date Never Smoker Smokeless Tobacco: Snuff Current User Alcohol Use Drinks/Week oz/Week Comments Yes occasionally Sex Assigned at Date Recorded Not on file as of this encounter Functional Status Functional Status Response Date of Assessment Does the patient have a hearing impairment: No 03/23/2017 as of this encounter OR Notes * Anesthesia Postprocedure Evaluation - Marcello Ramirez MD - 03/23/2017 4:09 PM MEDICAL FIELD REPRESENTATIVE Post-Anesthesia Evaluation Name: Loc Rocha : 1965 Age: 51 y.o. Sex : male Procedure Date: 03/23/2017 Procedure: * No procedures listed * Surgeon: * No surgeons listed * Post-Anesthesia Vitals BP: 110/71 (03/23 1605) Temp: 36.8 C (98.3 F) (03/23 1200) Pulse: 63 (03/23 1605) Respirations: 17 PER MINUTE (03/23 1530) SpO2: 92 % (03/23 1605) O2 Delivery: None (Room Air) (03/23 1605) Height: 170.2 cm (67") (03/23 1530) Post Anesthesia Evaluation Note Evaluation location: Pre/Post Patient participation: recovered; patient participated in evaluation Level of consciousness: alert Pain score: 0 Pain management: adequate Hydration: normovolemia Temperature: 36.0C - 38.4C Airway patency: adequate Perioperative Events Perioperative events: no Post-op nausea and vomiting: no PONV Postoperative Status Cardiovascular status: hemodynamically stable Respiratory status: spontaneous ventilation Follow-up needed: none Perioperative Events Perioperative Event: No Emergency Case Activation: No * Anesthesia Preprocedure Evaluation - Lilia Aguilar CRNA - 03/23/2017 3:44 PM MEDICAL FIELD REPRESENTATIVE Formatting of this note may be different from the original. Anesthesia Pre-Procedure Evaluation Name: Loc Rocha : 1965 Age: 51 y.o. Sex : male Procedure Date: Procedure [facility] Physical Assessment Vital Signs (last filed in past 24 hours): BP: 133/85 (03/23 1529) Temp: 36.8 C (98.3 F) (03/23 1200) Pulse: 83 (03/23 1529) Respirations: 17 PER MINUTE (03/23 1529) SpO2: 97 % (03/23 1529) O2 Delivery: Nasal Cannula (03/23 1529) Height: 170.2 cm (67") (03/23 1529) Weight: 103 kg (227 lb) (03/23 1529) Patient History Allergies Allergen Reactions Enalapril COUGH Penicillins UNKNOWN Current Medications Medication Directions apixaban (ELIQUIS) 5 mg tablet Take 5 mg by mouth twice daily. CLONAZEPAM (KLONOPIN PO) Take 0.25 mg by mouth twice daily. clonazePAM(+) (KLONOPIN) 0.25 mg rapid dissolve tablet Dissolve 0.25 mg by mouth twice daily. digoxin [...] (MULTIPLE VITAMIN PO) Take by mouth daily. Mawkh-5-WHH-EPA-Fish Oil (FISH OIL) 1,000 mg (120 mg-180 mg) cap Take 1 capsule by mouth three times daily. Review of Systems/Medical History Patient summary reviewed Nursing notes reviewed Pertinent labs reviewed PONV Screening: Non-smoker No history of anesthetic complications No family history of anesthetic complications Airway - negative Pulmonary - negative Sleep apnea Interventions: CPAP; compliant Cardiovascular Recent diagnostic studies: echocardiogram 03/22/16 EF 60% Exercise tolerance: >4 METS Beta Avni therapy: Yes Beta blockers within 24 hours: Yes Hypertension, well controlled Dysrhythmias; atrial fibrillation Congenital heart disease (ASD s/p repair 1998) GI/Hepatic/Renal - negative Neuro/Psych Psychiatric history Depression Musculoskeletal - negative Endocrine/Other - negative Physical Exam Airway Findings Mallampati: II TM distance: >3 FB Neck ROM: full Mouth opening: good Airway patency: adequate Dental Findings: Negative Cardiovascular Findings: Rhythm: irregular Rate: normal Pulmonary Findings: Negative Breath sounds clear to auscultation. Abdominal Findings: Obese Neurological Findings: Normal mental status Not sedated Diagnostic Tests Hematology: Lab Results Component Value Date HGB 14.1 03/23/2017 HCT 40.8 03/23/2017 PLTCT 187 03/23/2017 WBC 5.6 03/23/2017 MCV 86.9 03/23/2017 MCH 30.0 03/23/2017 MCHC 34.6 03/23/2017 MPV 8.2 03/23/2017 RDW 13.2 03/23/2017 General Chemistry: Lab Results Component Value Date NA 138 03/23/2017 K 3.4 03/23/2017 CL 103 03/23/2017 CO2 29 03/23/2017 GAP 6 03/23/2017 BUN 10 03/23/2017 CR 0.93 03/23/2017 GLU 109 03/23/2017 CA 9.2 03/23/2017 MG 2.1 03/23/2017 PO4 3.2 03/23/2017 Coagulation: No results found for: PT, PTT, INR Anesthesia Plan ASA score: 2 Plan: MAC Special equipment/procedures: BLU Induction method: intravenous NPO status: acceptable Informed Consent Anesthetic plan and risks discussed with patient. Use of blood products discussed with patient; consented to blood products. Plan discussed with: resident and surgeon/proceduralist. in this encounter Plan of Treatment Not on fileas of this encounter Visit Diagnoses Not on filein this encounter Administered Medications Medication Order MAR Action Action Date Dose Rate Site propofol (DIPRIVAN) injection Given 03/23/2017 70 mg INTRA-PROCEDURE MED, Starting 03/23/17 15:58 MEDICAL FIELD REPRESENTATIVE at 1558, Until Tue03/23/17 at 1606, Anesthesia Intra-op sodium chloride 0.9 % infusion Given - New 03/23/2017 INTRA-PROCEDURE MED(CONT), Starting Wed Bag 15:54 MEDICAL FIELD REPRESENTATIVE 03/23/17 at 1554, Until 03/23/17 at 1606, Anesthesia Intra-op in this encounter
--- OUTSIDE RECORDS SUMMARY | 2017-03-31 12:43 | XMS REPORT | Encounter Summary ---
Author Author [facility] Organization [facility] Address Unknown Phone Unavailable Care Team Providers Care Supervisor [employer] Name Role Phone Brian Pozo MD PCP Reason for Visit * Reason Comments Other atrial clot-instructions for increasing eliquis Encounter Details Date Type Department Care Team Description 02/01/2017 Documentation [facility] Ailyn Callaway RN Other (atrial [address] clot-instructions for [address] increasing eliquis) [place] [address] Social History Tobacco Use Types Packs/Day Years Used Date Never Smoker Smokeless Tobacco: Snuff Current User Alcohol Use Drinks/Week oz/Week Comments Yes occasionally Sex Assigned at Date Recorded Not on file as of this encounter Instructions * Patient Instructions - Ailyn Callaway RN - 02/01/2017 11:44 AM BRASS WIND INSTRUMENT MAKER Due to your continued atrial clot, we [...] to reschedule your BLU for 4-6 weeks. in this encounter Plan of Treatment Not on fileas of this encounter Visit Diagnoses Not on filein this encounter
--- OUTSIDE RECORDS SUMMARY | 2017-03-31 12:43 | XMS REPORT | Encounter Summary ---
Author Author [facility] Organization [facility] Address Unknown Phone Unavailable Care Team Providers Care Slubber Operator Name Role Phone Brian Pozo MD PCP Encounter Details Date Type Department Care Team Description 02/01/2017 Telephone [facility] Cardiology Ailyn Callaway RN [address] [facility] [address] [place] [address] Social History Tobacco Use Types Packs/Day Years Used Date Never Smoker Smokeless Tobacco: Snuff Current User Alcohol Use Drinks/Week oz/Week Comments Yes occasionally Sex Assigned at Date Recorded Not on file as of this encounter Miscellaneous Notes * Telephone Encounter - Ailyn Callaway RN - 02/01/2017 11:48 AM SECOND CHEF Reviewed with CJ WAREHOUSE TEAM LEADER. Patient needs to increase his eliquis to 10mg BID for the next week, and then resume his 5mg BID after that. Patient instructions in documentation encounter, ECHO department to print for patient. Will reschedule BLU and OV for 4-6 weeks from now to see if atrial clot has resolved. * Telephone Encounter - Ailyn Callaway RN - 02/01/2017 11:48 AM SECOND CHEF ----- Message from Loren Infante RN sent at 02/01/2017 11:05 AM SECOND CHEF ----- Regarding: + thrombus on BLU Patient with + thrombus on BLU. Sotalol admit cancelled. H/o LEÓN clot in past, per RAD note was on Eliquis x 2 months. BLU RN did know if patient had missed any doses of Eliquis. Can you review with CJ for plan? I don't know if she will want to switch AC - so the patient will be kept at with IV in, if labs needed. You can call [phone] (or I can, just let me know the plan) Micaelas! in this encounter Plan of Treatment Not on fileas of this encounter Visit Diagnoses Not on filein this encounter
--- OUTSIDE RECORDS SUMMARY | 2017-03-31 12:43 | XMS REPORT | Encounter Summary ---
Author Author [facility] Organization [facility] Address Unknown Phone Unavailable Care Team Providers Care Proj Mgr Name Role Phone Brian Pozo MD PCP Reason for Visit * Auth/Cert Status Reason Specialty Diagnoses / Referred By Referred To Procedures Contact Contact Diagnoses Atrial Fibrillation A-fib (HCC) Encounter for monitoring sotalol therapy Encounter Details Date Type Department Care Team Description 03/22/2017 Anesthesia [facility] Card[facility] Morgan Santos DO [address] [place] [address] [place] [address] Anesthesia Record Procedure Name Responsible Anesthesia Start Time Anesthesia Stop Time Anesthesiologist TRANSESOPHAGEAL Attila Bai MD 03/22/17 1137 03/22/17 1206 ECHOCARDIOGRAM Date Time Event Comment 1107 AN Equip Check 2017 1137 Anes Start 1137 An Start Data 1138 Start Supplemental O2 1140 Anesthesia Ready 1206 an stop data 1206 Handoff to RN I completed my SBAR handoff to the receiving nurse. 1206 An Stop Meds Name Total propofol (DIPRIVAN) 200 mg/ 20 mL 140 mg injection (VIAL) propofol (DIPRIVAN) infusion 85.07 mg ketamine (KETALAR) 10 mg/mL injection 20 mg sodium chloride 0.9 % infusion (500 200 mL mL bag) * Name O2 * [...] OR Notes * Anesthesia Postprocedure Evaluation - Attila Bai MD - 03/22/2017 12:35 PM HOSPITAL SUPERVISOR Post-Anesthesia Evaluation Name: Loc Rocha : 1965 Age: 51 y.o. Sex : male Procedure Date: 03/22/2017 Procedure: * No procedures listed * Surgeon: * No surgeons listed * Post-Anesthesia Vitals BP: 122/63 (03/22 1245) Pulse: 89 (03/22 1245) Respirations: 11 PER MINUTE (03/22 1235) SpO2: 94 % (03/22 1245) O2 Delivery: None (Room Air) (03/22 1245) Height: 170.2 cm (67") (03/22 1102) Post Anesthesia Evaluation Note Evaluation location: pre/post [...] Activation: No * Anesthesia Preprocedure Evaluation - Attila Bai MD - 03/22/2017 11:00 AM HOSPITAL SUPERVISOR Formatting of this note may be different from the original. Anesthesia Pre-Procedure Evaluation Name: Loc Rocha : 1965 Age: 51 y.o. Sex : male Procedure Date: Procedure: * No surgery found * Physical Assessment Vital Signs (last filed in past 24 hours): Height: 170.2 cm (67") (03/22 1101) Weight: 107 kg (236 lb) (03/22 1101) Patient History Allergies Allergen Reactions Enalapril COUGH [...] (MULTIPLE VITAMIN PO) Take by mouth daily. Nbidr-9-MKY-EPA-Fish Oil (FISH OIL) 1,000 mg (120 mg-180 mg) cap Take 1 capsule by mouth three times daily. Review of Systems/Medical History Patient summary reviewed Nursing notes reviewed Pertinent labs reviewed PONV Screening: Non-smoker No history of anesthetic complications No family history of anesthetic complications Airway - negative Pulmonary Sleep apnea Interventions: CPAP; compliant Cardiovascular Exercise tolerance: >4 METS Beta Avni therapy: Yes Beta blockers within 24 hours: Yes Hypertension, Dysrhythmias; atrial fibrillation GI/Hepatic/Renal - negative Neuro/Psych - negative Endocrine/Other - negative Physical [...] 03/22/2017 WBC 5.4 03/22/2017 MCV 87.2 03/22/2017 MCH 31.1 03/22/2017 MCHC 35.6 03/22/2017 MPV 8.1 03/22/2017 RDW 13.3 03/22/2017 General Chemistry: Lab Results Component Value Date [...] MAR Action Action Date Dose Rate Site ketamine (KETALAR) injection Given 03/22/2017 20 mg INTRA-PROCEDURE MED, Starting 03/22/17 11:39 HOSPITAL SUPERVISOR at 1139, Until 03/22/17 at 1206, Anesthesia Intra-op propofol (DIPRIVAN) infusion Given - New 03/22/2017 60 38.5 mL/hr 20 mL, Intravenous, INTRA-PROCEDURE Bag 11:44 HOSPITAL SUPERVISOR mcg/kg/min MED(CONT), Starting 03/22/17 at 1144, Until 03/22/17 at 1206, Anesthesia Intra-op Dose/Rate Change 03/22/2017 75 48.2 mL/hr 11:46 HOSPITAL SUPERVISOR mcg/kg/min Dose/Rate Change 03/22/2017 60 38.5 mL/hr 11:51 HOSPITAL SUPERVISOR mcg/kg/min propofol (DIPRIVAN) injection Given 03/22/2017 20 mg INTRA-PROCEDURE MED, Starting 03/22/17 11:48 HOSPITAL SUPERVISOR at 1139, Until 03/22/17 at 1206, Anesthesia Intra-op Given 03/22/2017 20 mg 11:51 HOSPITAL SUPERVISOR Given 03/22/2017 10 mg 12:00 HOSPITAL SUPERVISOR sodium chloride 0.9 % infusion Given - New 03/22/2017 INTRA-PROCEDURE MED(CONT), Starting Tue Bag 11:17 HOSPITAL SUPERVISOR 03/22/17 at 1117, Until 03/22/17 at 1206, Anesthesia Intra-op in this encounter
--- OUTSIDE RECORDS SUMMARY | 2017-03-31 12:43 | XMS REPORT | Encounter Summary ---
Author Author [facility] Organization [facility] Address Unknown Phone Unavailable Care Team Providers Care Coater Helper Name Role Phone Brian Pozo MD PCP Reason for Visit * Auth/Cert Status Reason Specialty Diagnoses / Referred By Referred To Procedures Contact Contact Diagnoses Atrial Fibrillation A-fib (HCC) Encounter for monitoring sotalol therapy Encounter Details Date Type Department Care Team Description 03/22/2017 [facility] Cardiology Aster Menendez MD Encounter [address] [place] [address] [place] [address] [place] [address] [phone] Social History Tobacco Use Types Packs/Day Years [...] (MULTIPLE Take by mouth daily. VITAMIN PO) Ayeki-8-RXW-EPA-Fish Oil Take 1 capsule by mouth (FISH [...] fileas of this encounter Results * MAGNESIUM (03/22/2017 10:29 AM) Component Value Ref Range Magnesium 2.1 1.6 - 2.6 mg/dL Specimen Performing Laboratory Blood [facility]IN [facility] [address] [place] [address] * CBC (03/22/2017 10:29 AM) Component Value Ref Range White Blood Cells 5.4 4.5 - 11.0 K/UL RBC 4.99 4.4 - 5.5 M/UL Hemoglobin 15.5 13.5 - 16.5 GM/DL Hematocrit 43.5 40 - 50 % MCV 87.2 80 - 100 FL MCH 31.1 26 - 34 PG MCHC 35.6 32.0 - 36.0 G/DL RDW 13.3 11 - 15 % Platelet Count 202 150 - 400 K/UL MPV 8.1 7 - 11 FL Specimen Performing Laboratory Blood [facility] [address] [place] [address] * BASIC METABOLIC PANEL (03/22/2017 10:29 AM) Component Value Ref Range Sodium 140 137 - 147 MMOL/L Potassium 3.9 3.5 - 5.1 MMOL/L Chloride 104 98 - 110 MMOL/L CO2 29 21 - 30 MMOL/L Anion Gap 7 3 - 12 Glucose 105 (H) 70 - 100 MG/DL Blood Urea Nitrogen 10 7 - 25 MG/DL Creatinine 1.03 0.4 - 1.24 MG/DL Calcium 10.0 8.5 - 10.6 MG/DL eGFR Non >60 [...] Performing Laboratory [facility] [address] [place] [address] in this encounter Visit Diagnoses Diagnosis Persistent atrial fibrillation (HCC) Atrial fibrillation
--- OUTSIDE RECORDS SUMMARY | 2017-03-31 12:44 | XMS REPORT | Encounter Summary ---
Author Author [facility] Organization [facility] Address Unknown Phone Unavailable Care Team Providers Care Spreader Name Role Phone Brian Pozo MD PCP Reason for Referral * Test Status Reason Specialty Diagnoses / Referred By Referred To Procedures Contact Contact No Auth Needed Cardiology Diagnoses Rusty Menendez Card Echopv Persistent MD [address] [facility] fibrillation [place], [place] ([facility]) [place] [address] [address] [place], [place] Phone: [employer] [phone] TRANSESOPHAGEAL Phone: ECHOCARDIOGRAM [phone] [place] TELEPH Fax: [place] [phone] M ECG STRIPS * Test Status Reason Specialty Diagnoses / Referred By Referred To Procedures Contact Contact No Auth Needed Cardiology Diagnoses Rusty Menendez Card Echopv Persistent MD Aster [address] [facility] fibrillation [place], [place] ([facility]) [place] [address] [address] [place] Phone: [employer] [phone] TRANSESOPHAGEAL Phone: ECHOCARDIOGRAM [phone] [place] TELE[place] Fax: [place] [phone] M ECG STRIPS Reason for Visit * Test Status Reason Specialty Diagnoses / Referred By Referred To Procedures Contact Contact No Auth Needed Cardiology Diagnoses Rusty Menendez Card Echopv Persistent MD Aster [address] [facility] fibrillation [place], [place] ([facility]) [place] [address] [address] [place] Phone: [employer] [phone] TRANSESOPHAGEAL Phone: ECHOCARDIOGRAM [phone] [place] TELEPH Fax: [place] [phone] M ECG STRIPS Encounter Details Date Type Department Care Team Description 02/01/2017 [facility] Cardiology Aster Menendez MD Encounter [address] [facility] [place] [address] [place] [address] [place] [address] [place] [address] [phone] Social History Tobacco Use Types Packs/Day Years Used Date Never Smoker Smokeless Tobacco: Snuff Current User Alcohol Use Drinks/Week oz/Week Comments Yes occasionally Sex Assigned at Date Recorded Not on file as of this encounter Last Filed Vital Signs Vital Sign Reading Time Taken Blood Pressure 132/88 02/01/2017 10:51 AM REFRIGERATION HOUSEMAN Pulse 85 02/01/2017 10:51 AM REFRIGERATION HOUSEMAN Temperature - - Respiratory Rate - - Oxygen Saturation 95% 02/01/2017 10:51 AM REFRIGERATION HOUSEMAN Inhaled Oxygen - - Concentration Weight 104.8 kg (231 lb) 02/01/2017 10:39 AM REFRIGERATION HOUSEMAN Height 170.2 cm (5' 7") 02/01/2017 10:39 AM REFRIGERATION HOUSEMAN Body Mass Index 36.18 02/01/2017 10:39 AM REFRIGERATION HOUSEMAN in this encounter Discharge Instructions * Patient Instructions - Keisha Stoddard RN - 02/01/2017 11:43 AM REFRIGERATION HOUSEMAN Recovery After Procedural Sedation (Adult) You have been given medicine by vein to make you sleep during your surgery. This may have included both a pain medicine and sleeping medicine. Most of the effects have worn off. But you may still have some drowsiness for the next 6 to 8 hours. Home care Follow these guidelines when you get home: For the next 8 hours, you should be watched by a responsible adult. This person should make sure your condition is not getting worse. Don't drink any alcoholfor the next [address], operate dangerous machinery, or make important business or personal decisionsduring the next 24 hours. Note: Your healthcare provider may tell you not to take any medicine by mouth for pain or sleep in the next 4 hours. These medicines may react with the medicines you were given in the hospital. This could cause a much stronger response than usual. Follow-up care Follow up with your healthcare provider if you are not alert and back to your usual level of activity within 12 hours. When to seek medical advice Call your healthcare provider right away if any of these occur: Drowsiness gets worse Weakness or dizziness gets worse Repeated vomiting You can't be awakened Date Last Reviewed: 12/02/201519998669-0359 [employer]. [address] [place] [address]. All rights reserved. This information is not intended as a substitute for professional medical care. Always follow your healthcare professional's instructions. in this encounter Medications at Time of [...] (MULTIPLE Take by mouth daily. VITAMIN PO) Ivpyn-5-KAP-EPA-Fish Oil Take 1 capsule by mouth (FISH OIL) 1,000 mg (120 three times daily. mg-180 mg) cap metoprolol XL (TOPROL XL) Take 100 mg by mouth 03/24/2017 100 mg extended release daily. tablet as of this encounter Progress Notes * Keisha Stoddard RN - 02/01/2017 9:41 AM REFRIGERATION HOUSEMAN Formatting of this note may be different from the original. Care Plan Care Category & Patient Outcome Goal Met Treatment/ Interventions Plan of the Day RN Name Cardiovascular Hemodynamic stability and adequate peripheral perfusion. Yes Refer to patient's chart. Monitor VS per sedation standard. Monitor ECG continuously. Assess/maintain IV patency. Keisha Stoddard RN Respiratory Patent airway, ease of respiration, and adequate oxygenation. Yes Refer to patient's chart. Maintain open airway. Assess respirations. Monitor O2 saturations. Titrate O2 to keep sat>=95% or baseline. Keisha Stoddard RN Psychological/Emotional/Spiritual [place] with procedure with support in place. Spiritual needs are addressed. Yes Refer to patient's chart. Provide adequate and thorough instructions. Provide a caring and supportive environment. Communicate patients concerns with other members of the health team. Keisha Stoddard RN Pain Patients pain goal met. Yes Refer to patient's chart. Prepare patient for potentially uncomfortable procedure. Observe for verbal/nonverbal complaints of pain. Assess pain. Provide comfort measures. Keisha Stoddard RN Safety/Fall Risk Free from injury, security maintained. Yes High Risk Refer to patient's chart. Follow nursing standard of practice for high risks fall patients. Keisha Stoddard RN Knowledge Base Verbalize understanding of procedure/information provided. Yes Refer to patient's chart. Describe the procedure along with what symptoms to expect. Evaluate patients understanding of procedure. Encourage patient to ask questions. Provide additional information as needed. Keisha Stoddard RN * Keisha Stoddard RN - 02/01/2017 9:41 AM REFRIGERATION HOUSEMAN Peripheral IV Insertion Note: Patient Side: left Line Orientation:Forearm IV Catheter Size: 20G Number of Attempts:1. IV capped and flushed with Normal Saline. IV site without redness, swelling, or pain. New dressing placed. After procedure IV cannula removed intact and hemostasis achieved. * Keisha Stoddard RN - 02/01/2017 9:37 AM REFRIGERATION HOUSEMAN Formatting of this note may be different from the original. Pre-Operative Assessment for BLU or Cardioversion Date of Service: 02/01/2017 Loc Rocha is a 51 y.o. y.o. male. : 1965 Procedure to be performed: BLU Expected Procedure Date: 02/01/2017 Indication: sotalol admission Patient appears alert and oriented: Yes NPO: for greater than 8 hours Inpatient IV status: L FA 20G placed Isolation status: None Last BLU date: 11/24/2016 at [facility] Last Cardioversion date: NA Anticoagulation Results Anticoagulant: apixaban (Eliquis) Missed dose: No Last MAC INR Flow Sheet Entry: Last recorded Lab results: No results found for: INR No results found for: PTT Allergies Allergies Allergen Reactions Enalapril COUGH Penicillins UNKNOWN Vitals Estimated body mass index is 36.18 kg/(m^2) as calculated from the following: Height as of this encounter: 1.702 m (5' 7"). Weight as of this encounter: 104.8 kg (231 lb). Diagnostic Tests White Blood Cells Date Value Ref Range Status 02/01/2017 5.8 4.5 - 11.0 K/UL Final Hemoglobin Date Value Ref Range Status 02/01/2017 15.0 13.5 - 16.5 GM/DL Final Hematocrit Date Value Ref Range Status 02/01/2017 43.2 40 - 50 % Final Platelet Count Date Value Ref Range Status 02/01/2017 210 150 - 400 K/UL Final Sodium Date Value Ref Range Status 02/01/2017 142 137 - 147 MMOL/L Final Potassium Date Value Ref Range Status 02/01/2017 3.7 3.5 - 5.1 MMOL/L Final Magnesium Date Value Ref Range Status 02/01/2017 2.3 1.6 - 2.6 mg/dL Final Blood Urea Nitrogen Date Value Ref Range Status 02/01/2017 9 7 - 25 MG/DL Final Creatinine Date Value Ref Range Status 02/01/2017 0.80 0.4 - 1.24 MG/DL Final Glucose Date Value Ref Range Status 02/01/2017 98 70 - 100 MG/DL Final Blood Cultures [...] (MULTIPLE VITAMIN PO) Take by mouth daily. Mghvt-7-BNJ-EPA-Fish Oil (FISH OIL) 1,000 mg (120 mg-180 [...] Assessment (only for BLU procedures): Positive for: Hx. Chest surgery/radiation- ASD repair Sedation Assessment: Positive for: Sleep Apnea/NATHALIE and Smoker- chews snuff tobacco in this encounter Plan of Treatment Not on fileas of this encounter Results * TRANSESOPHAGEAL ECHOCARDIOGRAM (02/01/2017 10:39 AM) Component Value Ref Range BSA 2.23 m2 CV ECHO PV PLANT PROTECTION GUARD BEBA Valdes ECHO EF 60 % Specimen Performing Laboratory OTHER OUTSIDE LAB Narrative The underlying rhythm is atrial fibrillation. Normal left ventricular systolic function, estimated ejection fraction is 60%. S/P ASD repair, no intracardiac shunt by color Doppler and agitated saline injection with and without Valsalva maneuver. Dense spontaneous echo contrast in the atrial appendage, impending thrombus formation. Mild mitral and tricuspid valve regurgitation. in this encounter Visit Diagnoses Diagnosis Persistent atrial fibrillation (HCC) Atrial fibrillation
--- OUTSIDE RECORDS SUMMARY | 2017-03-31 12:44 | XMS REPORT | Encounter Summary ---
Author Author [facility] Organization [facility] Address Unknown Phone Unavailable Care Team Providers Care Green Building Materials Designer Name Role Phone Brian Pozo MD PCP Reason for Visit * Reason Comments Follow Up DCCV to be done at Dr. Johnson office Encounter Details Date Type Department Care Team Description 01/21/2017 Telephone [facility] Cardiology Ailyn Callaway RN Follow Up (DCCV to be [address] Johnson office) [address] [place] [address] Social History Tobacco Use Types Packs/Day Years Used Date Never Smoker Smokeless Tobacco: Snuff Current User Alcohol Use Drinks/Week oz/Week Comments Yes occasionally Sex Assigned at Date Recorded Not on file as of this encounter Miscellaneous Notes * Telephone Encounter - Ailyn Callaway RN - 01/21/2017 10:54 AM PAY AGENT Called Dr. Johnson's office to speak with RN about arranging for DCCV. They have scheduled patient for Tuesday 0930am 01/26/17, patient to come in at 8:00am. [employer] message sent to patient with this information. Sotalol admission arranged for 02/01/17. in this encounter Plan of Treatment Not on fileas of this encounter Visit Diagnoses Not on filein this encounter
--- OUTSIDE RECORDS SUMMARY | 2017-03-31 12:44 | XMS REPORT | Encounter Summary ---
Author Author [facility] Organization [facility] Address Unknown Phone Unavailable Care Team Providers Care Division Sales Manager Name Role Phone Brian Pozo MD PCP Reason for Referral * Test Status Reason Specialty Diagnoses / Referred By Referred To Procedures Contact Contact No Auth Needed Cardiology Diagnoses Dendi, Bhg Card Echopv Persistent MD Aster [address] [place] [address] [place], [place] ([facility]) [place] [address] [address] [place], [place] Phone: [employer] [phone] TRANSESOPHAGEAL Phone: ECHOCARDIOGRAM [phone] [place] TELEPH Fax: [place] [phone] M ECG STRIPS Encounter Details Date Type Department Care Team Description 01/24/2017 Orders Only [facility] Ailyn Callaway RN Persistent atrial [address] [place] fibrillation (HCC) [address] (Primary Dx) [place] [address] Social History Tobacco Use Types Packs/Day Years Used Date Never Smoker Smokeless Tobacco: Snuff Current User Alcohol Use Drinks/Week oz/Week Comments Yes occasionally Sex Assigned at Date Recorded Not on file as of this encounter Plan of Treatment Not on fileas of this encounter Results * TRANSESOPHAGEAL ECHOCARDIOGRAM (02/01/2017 10:39 AM) Component Value Ref Range BSA 2.23 m2 CV ECHO PV GUEST RELATIONS OFFICER BEBA Valdes ECHO EF 60 % Specimen [...]
--- OUTSIDE RECORDS SUMMARY | 2017-03-31 12:44 | XMS REPORT | Encounter Summary ---
Author Author [facility] Organization [facility] Address Unknown Phone Unavailable Care Team Providers Care Proof Machine Operator Name Role Phone Brian Pozo MD PCP Encounter Details Date Type Department Care Team Description 01/31/2017 Pre-Admit XDD CARDIOLOGY Irene Bowen, Orders Only CHEMISTRY TUTOR-BANKING ATTORNEY [address] [place] [address] Social History Tobacco Use Types Packs/Day Years Used Date Never Smoker Smokeless Tobacco: Snuff Current User Alcohol Use Drinks/Week oz/Week Comments Yes occasionally Sex Assigned at Date Recorded Not on file as of this encounter Plan of Treatment Not on fileas of this encounter Visit Diagnoses Not on filein this encounter
--- OUTSIDE RECORDS SUMMARY | 2017-03-31 12:44 | XMS REPORT | Encounter Summary ---
Author Author [facility] Organization [facility] Address Unknown Phone Unavailable Care Team Providers Care Coal Hauler Operator Name Role Phone Brian Pozo MD PCP Reason for Visit * Reason Comments New Patient referred by Dr. Johnson Atrial fibrillation * Consultation (Urgent) Status Reason Specialty Diagnoses / Referred By Referred To Procedures Contact Contact New Request Specialty Cardiology Diagnoses Pat Johnson, Services Atrial MD Required fibrillation, [address] [facility] [address] ([facility]) [place] [address] Encounter Details Date Type Department Care Team Description 01/17/2017 Office Visit [facility] Cardiology Aster Menendez MD New Patient (referred by [address] [place] [address] Dr. Johnson); Atrial Shank[address] [place] [address] [place] [address] [phone] Social History Tobacco Use Types Packs/Day Years Used Date Never Smoker Smokeless Tobacco: Snuff Current User Alcohol Use Drinks/Week oz/Week Comments Yes occasionally Sex Assigned at Date Recorded Not on file as of this encounter Last Filed Vital Signs Vital Sign Reading Time Taken Blood Pressure 142/80 01/17/2017 3:33 PM BUSINESS ANALYST CONSULTANT Pulse 114 01/17/2017 3:33 PM BUSINESS ANALYST CONSULTANT Temperature - - Respiratory Rate - - Oxygen Saturation - - Inhaled Oxygen - - Concentration Weight 105 kg (231 lb 6.4 oz) 01/17/2017 3:33 PM BUSINESS ANALYST CONSULTANT Height 170.2 cm (5' 7") 01/17/2017 3:33 PM BUSINESS ANALYST CONSULTANT Body Mass Index 36.24 01/17/2017 3:33 PM BUSINESS ANALYST CONSULTANT in this encounter Instructions * Patient Instructions - Ailyn Callaway RN - 01/17/2017 4:37 PM BUSINESS ANALYST CONSULTANT I will call you tomorrow to set you up for sotalol admission. We will have you follow up about a month after ablation, I will set this up when I set you up for admission. STOP taking your multaq. In order to provide you the best care possible we ask that you follow up as below: For NON-URGENT questions please contact us through your [employer] account. For all medication refills please contact your pharmacy or send a request through [employer]. For all questions that may need to be addressed urgently please call the nursing triage line at [phone] Tuesday - Tuesday- only. Please leave a detailed message with your name, date of , and reason for your call. To schedule an appointment call [phone]. Please allow 10-15 business days for the results of any testing to be reviewed. Please call our office if you have not heard from a nurse within this time frame. Patient Education Sotalol Hydrochloride Oral solution Sotalol Hydrochloride Oral tablet Sotalol Hydrochloride Oral tablet [Atrial Arrhythmias] Sotalol Hydrochloride Solution for injection Sotalol Hydrochloride Oral tablet What is this medicine? SOTALOL (DAYSI ta lole) is a beta-sandra. Beta-blockers reduce the workload on the heart and help it to beat more regularly. This medicine is used to treat heart rhythm problems and to slow rapid heartbeats. This medicine can help your heart to return to and maintain a normal rhythm. This medicine may be used for other purposes; ask your health care provider or pharmacist if you have questions. What should I tell my health care provider before I take this medicine? They need to know if you have any of these conditions: diabetes heart or vessel disease like slow heart rate, worsening heart failure, heart block, sick sinus syndrome or Raynaud's disease kidney disease liver disease history of low levels of potassium or magnesium lung or breathing disease, like asthma or emphysema pheochromocytoma recent heart attack thyroid disease an unusual or allergic reaction to sotalol, other beta-blockers, medicines, foods, dyes, or preservatives or trying to get breast-feeding How should I use this medicine? Take this medicine by mouth with a glass of water. Follow the directions on the prescription label. Take your doses at regular intervals. Do not take your medicine more often than directed. Do not stop taking this medicine suddenly. This could lead to serious heart-related effects. Talk to your banjo repairer regarding the use of this medicine in children. Special care may be needed. While this medicine may be used in children for selected conditions precautions do apply. Overdosage: If you think you have taken too much of this medicine contact a poison control center or emergency room at once. NOTE: This medicine is only for you. Do not share this medicine with others. What if I miss a dose? If you miss a dose, take it as soon as you can. If it is almost time for your next dose, take only that dose. Do not take double or extra doses. What may interact with this medicine? Do not take this medicine with any of the following medications: amoxapine arsenic trioxide certain antibiotics like gatifloxacin, grepafloxacin, levofloxacin, moxifloxacin, sparfloxacin, telithromycin cisapride droperidol haloperidol hawthorn maprotiline medicines for malaria like chloroquine and halofantrine medicines to control heart rhythm methadone pentamidine phenothiazines like prochlorperazine, perphenazine, thioridazine, and others pimozide ranolazine tricyclic antidepressants like amitriptyline, imipramine, nortriptyline, and others vardenafil ziprasidone This medicine may also interact with the following medications: antacids certain antibiotics such as clarithromycin and erythromycin clonidine digoxin medicines for angina or high blood pressure medicines for colds and breathing difficulties medicines for diabetes other beta-blockers like atenolol, metoprolol, propranolol and others This list may not describe all possible interactions. Give your health care provider a list of all the medicines, herbs, non-prescription drugs, or dietary supplements you use. Also tell them if you smoke, drink alcohol, or use illegal drugs. Some items may interact with your medicine. What should I watch for while using this medicine? Visit your doctor or health urgent care physician assistant for regular checks on your progress. Check your heart rate and blood pressure regularly while you are taking this medicine. Ask your doctor or health urgent care physician assistant what your heart rate and blood pressure should be, and when you should contact him or her. Your doctor or health urgent care physician assistant also may schedule regular blood tests and electrocardiograms to check your progress. Because your condition and the use of this medicine carry some risk, it is a good idea to carry an identification card, necklace or bracelet with details of your condition, medications, and doctor or health urgent care physician assistant. You may get drowsy or dizzy. Do not drive, use machinery, or do anything that needs mental alertness until you know how this drug affects you. Do not stand or sit up quickly, especially if you are an older patient. This reduces the risk of dizzy or fainting spells. Alcohol can make you more drowsy and dizzy. Avoid alcoholic drinks. Do not treat yourself for coughs, colds, or pain while you are taking this medicine without asking your doctor or health urgent care physician assistant for advice. Some ingredients may increase your blood pressure. If you are going to have surgery, tell your doctor or health urgent care physician assistant that you are taking this medicine. What side effects may I notice from receiving this medicine? Side effects that you should report to your doctor or health urgent care physician assistant as soon as possible: chest pain cold, tingling, or numb hands or feet confusion diarrhea difficulty breathing, wheezing irregular heartbeat muscle aches and pains skin rash slow heart rate sweating swollen legs or ankles tremor, shakes vomiting Side effects that usually do not require medical attention (report to your doctor or health urgent care physician assistant if they continue or are bothersome): change in sex drive or performance mental depression nausea weakness or tiredness This list may not describe all possible side effects. Call your doctor for medical advice about side effects. You may report side effects to FDA at 3-056- FDA-9317. Where should I keep my medicine? Keep out of the reach of children. Store at room temperature between 15 and 30 degrees C (59 and 86 degrees F). Throw away any unused medicine after the expiration date. NOTE:This sheet is a summary. It may not cover all possible information. If you have questions about this medicine, talk to your doctor, pharmacist, or health care provider. Copyright 2017 [employer] in this encounter Progress Notes * Aster Menendez MD - 01/17/2017 3:20 PM BUSINESS ANALYST CONSULTANT Formatting of this note may be different from the original. Date of Service: 01/17/2017 Loc Rocha is a 51 y.o. male. HPI I had the pleasure of seeing your patient in our office today for cardiac electro physiology consultation regarding persistent atrial fibrillation and history of ASD repair. As you recall dear Dr. Johnson, your patient is a 51-year-old gentleman with known history of hypertension for about 20 years, history of congenital ASD discovered in 1998 requiring surgical repair in [facility] after prolonged struggle with symptoms [...] includes hiatal hernia/umbilical hernia repair in 2003. ASSESSMENT AND PLAN: I reviewed his 12-lead EKG which shows persistent atrial fibrillation with ventricular response around 114 bpm, QRS 98, QTc 4 and 80 ms. BLU report was reviewed which showed normal LV systolic function left atrial appendage echodensity suggestive of thrombus, moderately dilated left atrium, severe mitral regurgitation with flow reversal in the pulmonary vein. Interatrial septum did not have any leak. Stress test was performed in November 2016 and it was negative for any ischemia. Mild decreased uptake in the mid to apical anterolateral wall was noted but was not thought to be significant. 1. Persistent symptomatic atrial fibrillation 2. Left atrial appendage echodensity consistent with thrombus 3. Severe mitral regurgitation 4. Long-standing hypertension 5. Congenital ASD status post surgical repair in 1998 with tissue patch 6. Obstructive sleep apnea treated with CPAP Anxiety/depression Hiatal hernia status post surgical repair in 2003 At this point I would like to recommend that he undergo BLU guided cardioversion in the hospital since he has been on anticoagulant agent for 2 months. He will be admitted for sotalol initiation after the cardioversion. His diltiazem and metoprolol doses may have to be adjusted once sotalol was initiated. I would like to stop Multaq today since he is in persistent A. fib. I also discussed potential options including ablation for long-term basis which she is interested to talk about. He could also be a candidate for hybrid type of procedure. Thank you for letting us participate in the care of your patient. Vitals: 01/17/17 1533 BP: 142/80 Pulse: 114 Weight: 105 kg (231 lb 6.4 oz) Height: 1.702 m (5' 7") Body mass index is 36.24 kg/(m^2). Past Medical History There are no active problems to display for this patient. Review of Systems Constitution: Positive for malaise/fatigue. HENT: Positive for tinnitus. Eyes: Positive for pain. Cardiovascular: Positive for dyspnea on exertion, irregular heartbeat and palpitations. Respiratory: Positive for cough, shortness of breath and sleep disturbances due to breathing. Endocrine: Negative. Hematologic/Lymphatic: Negative. Skin: Negative. Musculoskeletal: Negative. Gastrointestinal: Positive for flatus. Genitourinary: Positive for incomplete emptying. Neurological: Positive for excessive daytime sleepiness and headaches. Psychiatric/Behavioral: Positive for depression. Allergic/Immunologic: Negative. Physical Exam Patient is a moderately well-built gentleman who is comfortable at rest, not in any distress. Sclerae anicteric. The oral mucosa is moist and pink. Neck is supple without any lymphadenopathy. Lungs are clear to auscultation bilaterally. Breath sounds are normal. Cardiac exam reveals normal S1, S2 with regular rate and rhythm. No murmurs, rubs or gallops noted. Abdomen: Soft, nontender, nondistended. Bowel sounds are present. Extremities: No cyanosis, clubbing or edema. Peripheral pulses are symmetric. Skin without any rash. . No gross motor or neuro deficits. Cardiovascular Studies Problems Addressed Today Encounter Diagnoses Name Primary? Atrial fibrillation, unspecified type (HCC) Yes Assessment and Plan As above [...] (MULTIPLE VITAMIN PO) Take by mouth daily. Sigxa-9-[id number]-Fish Oil (FISH OIL) 1,000 mg (120 mg-180 mg) cap Take 1 capsule by mouth three times daily. in this encounter Plan of Treatment Name Priority Associated Diagnoses Order Schedule ECG 12-LEAD Routine Persistent atrial Ordered: 01/17/2017 fibrillation (HCC) as of this encounter Results * ECG/QRS (01/17/2017 3:43 PM) Component Value Ref Range QRS DURATION 98 Specimen Performing Laboratory OTHER OUTSIDE LAB in this encounter Visit Diagnoses Diagnosis Persistent atrial fibrillation (HCC) - Primary Atrial fibrillation Essential hypertension Unspecified essential hypertension NATHALIE on CPAP Obstructive sleep apnea (adult) (pediatric) Congenital atrial septal defect Ostium secundum type atrial septal defect
--- OUTSIDE RECORDS SUMMARY | 2017-03-31 12:44 | XMS REPORT | Encounter Summary ---
Author Author [facility] Organization [facility] Address Unknown Phone Unavailable Care Team Providers Care Interior Horticulturist Name Role Phone Brian Pozo MD PCP Reason for Visit * Reason Comments Precertification Approval for Inpatient Sotalol Initiation through [facility] Encounter Details Date Type Department Care Team Description 01/24/2017 Documentation [facility] Fabien Alejandre, RN Precertification [address] (Approval for Inpatient [address] [place] [address] through [facility]) [phone] Social History Tobacco Use Types Packs/Day Years Used Date Never Smoker Smokeless Tobacco: Snuff Current User Alcohol Use Drinks/Week oz/Week Comments Yes occasionally Sex Assigned at Date Recorded Not on file as of this encounter Progress Notes * Fabien Alejandre, RN - 01/24/2017 3:08 PM SJ Hernandez with [facility], , confirmed benefits and eligibility: Current and active since 11/14/2016, $1500 deductible with required co-insurance of 20% to max OOP $1000, then plan will pay 100% of allowable charges. Pre- certification through Medical Review Team, , is required for Inpatient Sotalol Initiation. Reference #[id number] After discussion and extensive review, Kayli cardiology review nurse for [facility] Medical Review Team, gave approval for 2 inpatient days beginning on 02/01/2017. Discharge or concurrent review anticipated on 12/04/2016. Authorization #[id number] in this encounter Plan of Treatment Not on fileas of this encounter Visit Diagnoses Not on filein this encounter
--- OUTSIDE RECORDS SUMMARY | 2017-03-31 12:45 | XMS REPORT | Continuity of Care Document ---
Author Author Replaced By [facility] Address Unknown Phone Unavailable Allergies Active Description Code Type Severity Reaction Onset Reported/Identified Relationship to Patient Clinical Status Yes Penicillins Drug Allergy 08/24/2010 Yes Penicillins Drug Allergy N/A N/A 08/24/2010 Yes enalapril [id number] Drug Allergy Unknown N/A 11/24/2016 Yes Penicillins [id number] Drug Allergy Unknown N/A 11/24/2016 Medications There is no data. Problems Date Dx Coded Attending Type Code Diagnosis Diagnosed By 05/13/2010 MIRIAN TORTTER DO 296.30 MAJOR DEPRESSIVE AFFECTIVE DISORDER RECURRENT [...] MIRIAN TROTTER DO 309.81 AN PTSD 08/24/2010 LUI SALBERTO ARRIAGA MD 309.81 AN PTSD 08/24/2010 DANYELLE [...] MD Ot 786.05 SHORTNESS OF BREATH 04/17/2013 BESSY HERNANDEZ MD Ot 786.09 RESPIRATORY ABNORM NEC [...] ISSA Ot Q21.1 ATRIAL SEPTAL DEFECT 06/04/2016 HATTIE ISSATH Atiya Ot R06.02 SHORTNESS OF BREATH 06/04/2016 BESSY HERNANDEZ MD Ot G47.33 OBSTRUCTIVE SLEEP APNEA (ADULT) (PEDIATR 06/16/2016 MICHELINE ISSA Ot I10 ESSENTIAL (PRIMARY) HYPERTENSION 06/16/2016 HATTIE ISSATH Atiya Ot I48.0 PAROXYSMAL ATRIAL FIBRILLATION 06/16/2016 HATTIE ISSATH Atiya Ot Q21.1 ATRIAL SEPTAL DEFECT 06/16/2016 HATTIE ISSATH Atiya Ot R06.02 SHORTNESS OF BREATH 11/24/2016 Ot 278.00 OBESITY, NOS 11/24/2016 Ot 305.1 TOBACCO USE DISORDER 11/24/2016 Ot 401.9 HYPERTENSION NOS 11/24/2016 Ot 745.5 SECUNDUM ATRIAL SEPT DEF 11/24/2016 Ot 780.2 SYNCOPE AND COLLAPSE 11/24/2016 Ot 785.1 PALPITATIONS 11/24/2016 Ot 786.05 SHORTNESS OF BREATH 11/24/2016 Ot 786.09 RESPIRATORY ABNORM NEC 11/24/2016 Ot 786.50 CHEST PAIN NOS 11/24/2016 BESSY HERNANDEZ MD Ot E66.9 OBESITY, UNSPECIFIED 11/24/2016 BESSY HERNANDEZ MD Ot F17.220 NICOTINE DEPENDENCE, CHEWING TOBACCO, UN 11/24/2016 BESSY HERNANDEZ MD Ot G47.33 OBSTRUCTIVE SLEEP APNEA (ADULT) (PEDIATR 11/24/2016 BESSY HERNANDEZ MD Ot I10 ESSENTIAL (PRIMARY) HYPERTENSION 11/24/2016 BESSY HERNANDEZ MD Ot I48.0 PAROXYSMAL ATRIAL FIBRILLATION 11/24/2016 BESSY HERNANDEZ MD, Ot Q21.1 ATRIAL SEPTAL DEFECT 11/24/2016 BESSY HERNANDEZ MD Ot R07.89 OTHER CHEST PAIN 11/24/2016 BESSY HERNANDEZ MD Ot Z68.35 BODY MASS INDEX (BMI) 35.0-35.9, ADULT 11/24/2016 BESSY HERNANDEZ MD Ot Z79.899 OTHER CUSTODIAL (CURRENT) DRUG THERAPY 11/24/2016 BESSY HERNANDEZ MD Ot Z82.49 FAMILY HX OF ISCHEM HEART DIS AND OTH DI 12/08/2016 BESSY HERNANDEZ MD, Ot Z53.9 PROCEDURE AND TREATMENT NOT CARRIED OUT, 12/16/2016 BESSY HERNANDEZ MD Ot I10 ESSENTIAL (PRIMARY) HYPERTENSION 12/16/2016 BESSY HERNANDEZ MD Ot I48.0 PAROXYSMAL ATRIAL FIBRILLATION 12/16/2016 BESSY HERNANDEZ MD, Ot Q21.1 ATRIAL SEPTAL DEFECT 12/16/2016 BESSY HERNANDEZ MD Ot R07.89 OTHER CHEST PAIN Procedures Code Description [place] [address] PSYCH PHARM MGMT 02/10/2012 Results Test Result Range Automated blood complete blood count (hemogram) panel - 11/24/16 07:25 Blood leukocytes automated count (number/volume) 5.0 10*3/uL 4.3-11.0 Blood erythrocytes automated count (number/volume) 4.93 10*6/uL 4.35-5.85 Venous blood hemoglobin measurement (mass/volume) 15.2 g/dL 13.3-17.7 Blood hematocrit (volume fraction) 42 % 40-54 Automated erythrocyte mean corpuscular volume 85 [foz_us] 80-99 Automated erythrocyte mean corpuscular hemoglobin (mass per erythrocyte) 31 pg 25-34 Automated erythrocyte mean corpuscular hemoglobin concentration measurement ( mass/volume) 36 g/dL 32-36 Automated erythrocyte distribution width ratio 13.5 % 10.0-14.5 Automated blood platelet count (count/volume) 190 10*3/uL 130-400 Automated blood platelet mean volume measurement 10.2 [foz_us] 7.4-10.4 PT panel in platelet poor plasma by coagulation assay - 11/24/16 07:25 Prothrombin time (PT) in platelet poor plasma by coagulation assay 13.8 s 12.2-14.7 INR in platelet poor plasma or blood by coagulation assay 1.1 0.8-1.4 Activated partial thromboplastin time (aPTT) in platelet poor plasma bycoagulation assay - 11/24/16 07:25 Activated partial thromboplastin time (aPTT) in platelet poor plasma bycoagulation assay 45 s 24-35 Complete urinalysis with reflex to culture - 11/24/16 07:25 Urine color determination YELLOW NRG Urine clarity determination CLEAR NRG Urine pH measurement by test strip 7 5-9 Specific gravity of urine by test strip 1.010 1.016- 1.022 Urine protein assay by test strip, semi-quantitative 1+ NEGATIVE Urine glucose detection by automated test strip 1+ NEGATIVE Erythrocytes detection in urine sediment by light microscopy 2+ NEGATIVE Urine ketones detection by automated test strip NEGATIVE NEGATIVE Urine nitrite detection by test strip NEGATIVE NEGATIVE Urine total bilirubin detection by test strip NEGATIVE NEGATIVE Urine urobilinogen measurement by automated test strip (mass/volume) NORMAL NORMAL Urine leukocyte esterase detection by dipstick 1+ NEGATIVE Automated urine sediment erythrocyte count by microscopy (number/high power field) RARE NRG Automated urine sediment leukocyte count by microscopy (number/high power field ) [HPF] NRG Bacteria detection in urine sediment by light microscopy NEGATIVE NRG Squamous epithelial cells detection in urine sediment by light microscopy 2-5 NRG Crystals detection in urine sediment by light microscopy NONE NRG Casts detection in urine sediment by light microscopy PRESENT NRG Mucus detection in urine sediment by light microscopy NEGATIVE NRG Complete urinalysis with reflex to culture NO NRG Hyaline casts detection in urine sediment by light microscopy 0-2 NRG Comprehensive metabolic panel - 11/24/16 07:25 Serum or plasma sodium measurement (moles/volume) 142 mmol/L 135-145 Serum or plasma potassium measurement (moles/volume) 3.3 mmol/L 3.6-5.0 Serum or plasma chloride measurement (moles/volume) 105 mmol/L 98-107 Carbon dioxide 29 mmol/L 21-32 Serum or plasma anion gap determination (moles/volume) 8 mmol/L 5-14 Serum or plasma urea nitrogen measurement (mass/volume) 8 mg/dL 7-18 Serum or plasma creatinine measurement (mass/volume) 0.89 mg/dL 0.60-1.30 Serum or plasma urea nitrogen/creatinine mass ratio 9 NRG Serum or plasma creatinine measurement with calculation of estimated glomerular filtration rate > NRG Serum or plasma glucose measurement (mass/volume) 95 mg/dL 70-105 Serum or plasma calcium measurement (mass/volume) 9.3 mg/dL 8.5-10.1 Serum or plasma total bilirubin measurement (mass/volume) 1.0 mg/dL 0.1-1.0 Serum or plasma alkaline phosphatase measurement (enzymatic activity/volume) 89 U/L 40-136 Serum or plasma aspartate aminotransferase measurement (enzymatic activity/ volume) 45 U/L 5-34 Serum or plasma alanine aminotransferase measurement (enzymatic activity/volume ) 62 U/L 0-55 Serum or plasma protein measurement (mass/volume) 7.6 g/dL 6.4-8.2 Serum or plasma albumin measurement (mass/volume) 4.3 g/dL 3.2-4.5 Lipid 1996 panel - 11/24/16 07:25 Serum or plasma triglyceride measurement (mass/volume) 132 mg/dL <150 Serum or plasma cholesterol measurement (mass/volume) 176 mg/dL < 200 Serum or plasma cholesterol in HDL measurement (mass/volume) 36 mg/ dL 40-60 Cholesterol in LDL [mass/volume] in serum or plasma by direct assay 123 mg/dL 1-129 Serum or plasma cholesterol in VLDL measurement (mass/volume) 26 mg/ dL 5-40 Methicillin resistant Staphylococcus aureus (MRSA) screening culture - 07:25 Methicillin resistant Staphylococcus aureus (MRSA) screening culture NEG NRG Encounters ACCT No. Visit Date/Time Discharge Status Pt. Type Provider Facility Loc./Unit Complaint [id number] 01/17/2014 09:12:00 01/17/2014 23:59:59 CLS Outpatient ZACH ASIYA DANYELLE [id number] 10/18/2013 09:03:00 10/18/2013 23:59:59 CLS Outpatient DANYELLE SERRANO APRN [id number] 04/17/2013 14:05:00 04/17/2013 23:59:59 CLS Outpatient LUIS ALBERTO ARRIAGA MD [id number] 11/04/2012 09:49:00 11/04/2012 23:59:59 CLS Outpatient JAIROMIRIAN SAMANIEGO DO [id number] 01/24/2012 11:16:00 01/24/2012 23:59:59 [place] [id number] 09/08/2011 10:53:00 09/08/2011 23:59:59 CLS Outpatient [id number] 06/24/2012 13:27:00 Document Registration [id number] 12/08/2016 11:58:00 12/08/2016 23:59:59 CLS Outpatient BESSY HERNANDEZ MD [facility] CARD I48.0 AF [id number] 11/24/2016 06:56:00 11/24/2016 23:59:59 CLS Outpatient BESSY HERNANDEZ MD [facility] SDC AFIB/FATIGUE [id number] 11/24/2016 06:53:00 11/24/2016 13:10:00 DIS Outpatient BESSY HERNANDEZ MD [facility] CATH A-FIB,FATIGUE [id number] 06/03/2016 14:44:00 06/03/2016 23:59:59 CLS Outpatient MICHELINE ISSA [facility] CARD I48.0 [id number] 06/03/2016 14:00:00 06/03/2016 14:30:00 DIS Outpatient BESSY HERNANDEZ MD [facility] SLEEP G47.33 [id number] 09/09/2014 11:45:00 09/09/2014 23:59:59 CLS Outpatient MICHELINE ISSA [facility] CARD ASD,CP,HTN, PALPITATIONS [id number] 01/17/2013 09:22:00 04/17/2013 00:01:00 DIS Outpatient DAVID GUPTA, BESSY [facility] CARD CHEST PAIN,DYSPNEA, PALPITATION,SYNCOPE [id number] 03/30/2017 08:26:00 Document Registration [id number] 04/18/2013 09:00:00 Document Registration
[2017-04-01] VITALS (11 sets, daily range): BP systolic 103–152; BP diastolic 72–111
[2017-04-01 04:26] LABS: BASOPHILS % (AUTO) 1 % (0-10); EOSINOPHILS # (AUTO) 0.2 10^3/uL (0.0-0.3); EOSINOPHILS % (AUTO) 3 % (0-10); HEMATOCRIT 40 % (40-54); HEMOGLOBIN 14.5 G/DL (13.3-17.7); LYMPHOCYTES % (AUTO) 39 % (12-44); MEAN CORPUSCULAR HEMOGLOBIN 31 PG (25-34); MEAN CORPUSCULAR HGB CONC 36 G/DL (32-36); MEAN CORPUSCULAR VOLUME 86 FL (80-99); MEAN PLATELET VOLUME 10.2 FL (7.4-10.4); MONOCYTES # (AUTO) 0.7 X 10^3 (0.0-1.0); MONOCYTES % (AUTO) 13 % (0-12); NEUTROPHILS # (AUTO) 2.3 X 10^3 (1.8-7.8); NEUTROPHILS % (AUTO) 44 % (42-75); PLATELET COUNT 180 10^3/uL (130-400); RED BLOOD COUNT 4.62 10^6/uL (4.35-5.85); RED CELL DISTRIBUTION WIDTH 13.4 % (10.0-14.5); WHITE BLOOD COUNT 5.1 10^3/uL (4.3-11.0)
[2017-04-01 04:46] LABS: BUN/CREATININE RATIO 9; CALCIUM 9.3 MG/DL (8.5-10.1); CARBON DIOXIDE 27 MMOL/L (21-32); CHLORIDE 105 MMOL/L (98-107); CREATININE SERUM 0.86 MG/DL (0.60-1.30); GFR ESTIMATED > 60; GLUCOSE 93 MG/DL (70-105); MAGNESIUM 2.4 MG/DL (1.8-2.4); PHOSPHORUS 3.9 MG/DL (2.3-4.7); POTASSIUM 3.9 MMOL/L (3.6-5.0); SODIUM 142 MMOL/L (135-145)
[2017-04-01] MEDS: POTASSIUM CL 10MEQ/50ML IVPB 50 ML IV SCH (06:00)
[2017-04-01] MEDS: MAGNESIUM 1 GM/100 ML IVPB 100 ML IV SCH (06:00)
[2017-04-01] MEDS: KCL 20 MEQ TAB (K-DUR) PO SCH (06:00)
[2017-04-01] MEDS: OMEGA 3 (FISH OIL) 1000 MG CAP PO SCH (07:11)
[2017-04-01] MEDS: DULoxetine 30 MG (CYMBALTA) CAP PO SCH (08:41)
[2017-04-01] MEDS: APIXABAN 5 MG (ELIQUIS) TABLET PO SCH (08:41)
[2017-04-01] MEDS: clonazePAM 0.5 MG (KlonoPIN) TAB PO SCH (08:42)
[2017-04-01] MEDS: SOTALOL 80 MG (BETAPACE) TAB PO SCH (08:42)
[2017-04-01] MEDS ORDERED: DILTIAZEM 240 MG (CARDIZEM CD) CAP PO SCH (09:00)
[2017-04-01] MEDS ORDERED: DILT240C63 PO (10:01)
[2017-04-01] MEDS ORDERED: SOTA120T PO (10:01)
--- NOTE | 2017-04-01 10:05 | Cardiology Discharge Summary ---
Diagnosis/Chief Complaint Date of Admission Mar 28, 2017 at 14:45 Date of Discharge Admission Diagnosis Afib with RVR HTN NATHALIE Obesity Discharge Diagnosis Atrial fibrillation Tachycardia Hypertension Hyperlipidemia Chief Complaint/HPI Chief Complaint/HPI Patient is a 51 y/o male with history of PAF, HTN, HLP. Had been following with Dr. Menendez for further management of atrial fibrillation. Underwent BLU and cardioversion done at on 2017 after being initiated on Sotalol. Presented to our office yesterday for follow up. C/o increased fatigue over the past several days. Denies any CP or palpitation. Had EKG done in office revealing atrial fibrillation with HR in the 120's. Patient was admitted to ICU for further management. Upon interviewing the patient, he is denying any CP or dyspnea at this time. Continues to be in atrial fibrillation, although HR is better controlled today. EKG reveals borderline prolonged QT. Discharge Summary Hospital Course Hospital Course Atrial fibrillation with RVR- has been following with Dr. Menendez, underwent 2 shocks with DC cardioversion, was unable to maintain sinus rhythm, returned to atrial flutter than atrial fibrillation. I try to increase sotalol dose to 160 mg twice daily, patient had significant prolongation of his QTC. I started back the lower dose of sotalol and he is tolerating it well but still borderline tachycardic subsequently I increased Cardizem and will restart metoprolol. I discussed the management plan in length with him and his . We discussed treatment option with possible ablation versus other antiarrhythmic medication or accepting atrial fibrillation is permanent atrial fibrillation and try to control the rate. Patient would like to continue with the sotalol for now and try to achieve adequate heart rate control and discuss it with his . He is scheduled to see Dr. Garcia soon and I will see him next week to make sure that his heart rate is under better control. Hypertension, restart home medication monitor blood pressure next Hyperlipidemia, I'll postpone adding lipid-lowering agent at this time. NATHALIE- patient uses CPAP, continue to monitor. Intolerance to angiotensin-converting enzyme inhibitors with cough. Dyspnea, related to the palpitation. Reporting improvement. Continue to monitor. History of atrial septal defect, [place] [address] Garg. History of atrial septal repair, BLU did not show any shunt Tobaccoism, patient chewed tobacco, he was educated and instructed on avoiding any tobacco product. Family history of coronary artery disease. Obesity, BMI 35, patient was educated on weight loss and exercise. Labs Laboratory Tests 03/30/17 04:00: 03/31/17 04:00: Hematocrit 39L 04/01/17 04:00: Monocytes (%) (Auto) 13H Procedures None. Discharge Physical Examination Allergies: Coded Allergies: Penicillins (Verified Allergy, Unknown, 11/24/16) enalapril (Verified Allergy, Unknown, 11/24/16) Vitals & I&Os Vital Signs Date Time Temp Pulse Resp B/P (MAP) Pulse Ox O2 Delivery O2 Flow Rate FiO2 04/01/17 08:00 96.5 Room Air 04/01/17 08:00 98 04/01/17 07:00 119 04/01/17 06:00 10 136/97 (110) General Appearance: Alert, Oriented X3, Cooperative, No Acute Distress HEENT: Atraumatic, PERRLA Respiratory: Clear to Auscultation, Normal Air Movement Cardiovascular: Normal S1, Normal S2, No Murmurs, Other (Atrial fibrillation) Abdominal: Normal Bowel Sounds, Soft, No Tenderness, No Hepatosplenomegaly, No Masses Extremities: No Clubbing, No Cyanosis, No Edema, Normal Pulses, No Tenderness/ Swelling Skin: No Rashes, No Breakdown, No Significant Lesion Neuro: Normal Gait, Normal Speech, Strength at 5/5 X4 Ext, Normal Tone, Sensation Intact, Cranial Nerves 3-12 NL, Reflexes 2+ Psych/Mental Status: Mental Status NL, Mood NL Discharge Home Medications Reviewed and agree with Discharge Medication list on patient's Discharge Instruction sheet Instructions to Patient/Family Please see electronic discharge instructions given to patient. Clinical Quality Measures DVT/VTE Risk/Contraindication: Risk Factor Score Per Nursin RFS Level Per Nursing on Admit: 4+=Very High BESSY HERNANDEZ MD Apr 01, 2017 10:05
== END 2017-04-01 11:08 | disposition home or self-care (01) | DRG 310 ==
LOC: ICU 14:45
PROVIDERS: ADMIT Internal Medicine Cardiovascular Disease; ATTEND Internal Medicine Cardiovascular Disease
PROC: 5A2204Z Restoration of Cardiac Rhythm, Single (ICD-10-PCS; principal; 2017-03-30)
DX: I48.0 Paroxysmal atrial fibrillation (principal); I48.92 Unspecified atrial flutter; I10 Essential (primary) hypertension; E78.5 Hyperlipidemia, unspecified; K21.9 Gastro-esophageal reflux disease without esophagitis; K44.9 Diaphragmatic hernia without obstruction or gangrene; G47.33 Obstructive sleep apnea (adult) (pediatric); E87.6 Hypokalemia; F17.220 Nicotine dependence, chewing tobacco, uncomplicated; Z82.49 Family history of ischemic heart disease and other diseases of the circulatory system; E66.9 Obesity, unspecified; Z68.35 Body mass index [BMI] 35.0-35.9, adult
CPT/HCPCS: 36415; 80048; 80053; 83735; 84100; 84443; 85025; 85027; 87081; 93005

== ENCOUNTER 2018-04-07 08:53 | Emergency (ER) | payer BC ==
[~2018-04-07] VITALS: Ht 170.2 cm; Wt 102.1 kg
[~2018-04-07 08:53] MED LIST changes: +DILT240C97 PO; +METO-370 PO; +OMEG-160 PO; +SOTA120T PO
--- OUTSIDE RECORDS SUMMARY | 2018-04-07 08:58 | XMS REPORT | Clinical Summary ---
Author Author [facility] Organization [facility] Address Unknown Phone Unavailable Care Team Providers Care Bioinformatics Engineer Name Role Phone Brian Pozo MD PCP Source Comments Some departments are not documenting in the electronic medical record. If you do not see the information that you expected, contact Release of Information in the Health Information Management department at [phone] for further assistance in locating additional records.[facility] Allergies Comments Active Allergy Reactions Severity Noted Date Enalapril COUGH Low 11/30/2016 Penicillins RASH Medium 11/30/2016 Medications End Date Status Medication Sig Dispensed Refills Start Date Active diltiazem CD (CARDIZEM Take 240 mg 0 CD) 240 mg capsule by mouth daily. Active duloxetine DR (CYMBALTA) Take 60 mg by 0 60 mg capsule mouth daily. Active Xcfew-0-VVO-EPA-Fish Oil Take 1 0 (FISH OIL) 1,000 mg (120 capsule by mg-180 mg) cap mouth three times daily. Active MULTIVITAMIN (MULTIPLE Take 1 tablet 0 VITAMIN PO) by mouth daily. Active apixaban (ELIQUIS) 5 mg Take 5 mg by 0 tablet mouth twice daily. Active Mag Aspart-Potassium Take 1 0 Aspart 250-250 mg cap capsule by mouth daily. Active clonazePAM(+) (KLONOPIN) Dissolve 0.25 0 0.25 mg rapid dissolve mg by mouth tablet twice daily. Active losartan-hydrochlorothiaz Take one 90 tablet 3 kelley (HYZAAR) 100-12.5 mg tablet by 8 tablet mouth every morning. Active propafenone SR(+) Take one 180 capsule 3 (RYTHMOL SR) 225 mg capsule by 8 capsule mouth every 12 hours. Active Problems Problem Noted Date Chronic anticoagulation on Eliquis 04/25/2017 Atrial fibrillation with RVR 04/20/2017 Encounter for monitoring sotalol therapy 03/22/2017 Chews tobacco 02/01/2017 Persistent atrial fibrillation 01/17/2017 Overview: 04/20/17: AFIB Ablation by PVI by Dr. Menendez HTN (hypertension) 01/17/2017 NATHALIE (obstructive sleep apnea) 01/17/2017 Congenital atrial septal defect 01/17/2017 Overview: Repaired 1998 [employer] PURI Immunizations Name Dates Previously Given Next Due [...] Sister half Alive Sister Alive Social History Date Tobacco Use Types Packs/Day Years Used Never Smoker Smokeless Tobacco: Snuff Current User Comments: last 04/09/17 Alcohol Use Drinks/Week oz/Week Comments Yes occasionally; not currently drinking Sex Assigned at Date Recorded Not on file Industry Job Start Date Occupation Not on file Not on file Not on file Travel End Travel History Travel Start No recent travel history available. Last Filed Vital Signs Time Taken Vital Sign Reading 10/10/2017 10:48 AM CDT Blood Pressure 152/88 10/10/2017 10:48 AM CDT Pulse 75 04/25/2017 3:33 PM CDT Temperature 36.3 C (97.3 F) - Respiratory Rate - 04/25/2017 3:33 PM CDT Oxygen Saturation 96% - Inhaled Oxygen - Concentration 10/10/2017 10:48 AM CDT Weight 106 kg (233 lb 9.6 oz) 10/10/2017 10:48 AM CDT Height 170.2 cm (5' 7") 10/10/2017 10:48 AM CDT Body Mass Index 36.59 Plan of Treatment Health Maintenance Due Date Last Done Comments HEPATITIS C SCREENING 1965 PHYSICAL (COMPREHENSIVE) 11/20/1970 EXAM HIV SCREENING 11/20/1978 DTAP/TDAP VACCINES (1 - 11/20/1981 Tdap) COLORECTAL CANCER 11/20/2013 SCREENING SHINGLES RECOMBINANT 11/20/2013 VACCINE (1 of 2) INFLUENZA VACCINE 09/14/2017 Results Not on filefrom Last 3 Months Insurance Payer Benefit Subscriber ID Type Phone Address Plan / Group [facility]BS [facility] xxxxxxxxxxxx PPO [facility] BLUE Advance Directives Patient has advance care planning documents, and code status on file. For more information, please contact: [facility] [address] [place] [address] Date Inactivated Comments Code Status Date Activated 04/25/2017 7:41 PM Full Code 04/24/2017 3:06 PM Provider has discussed Code Status No, more discussion w/Patient or Family? needed 04/21/2017 12:17 PM Full Code 04/20/2017 4:39 PM Provider has discussed Code Status Yes w/Patient or Family? 03/24/2017 3:42 PM Full Code 03/22/2017 2:15 PM Provider has discussed Code Status No, more discussion w/Patient or Family? needed
--- OUTSIDE RECORDS SUMMARY | 2018-04-07 08:59 | XMS REPORT | Continuity of Care Document ---
Author Author [facility] Address Unknown Phone Unavailable Allergies Active Description Code Type Severity Reaction Onset Reported/Identified Relationship to Patient Clinical Status Yes Penicillins Drug Allergy 08/24/2010 Yes Penicillins Drug Allergy N/A N/A 08/24/2010 Yes enalapril [id number] Drug Allergy Unknown N/A 11/24/2016 Yes Penicillins [id number] Drug Allergy Unknown N/A 11/24/2016 Medications There [...] 06/23/2015 MICHELINE ISSA Ot 785.1 PALPITATIONS 06/23/2015 MIHCELINE ISSA Ot 786.50 CHEST PAIN NOS 05/19/2016 [...] I48.0 PAROXYSMAL ATRIAL FIBRILLATION 11/24/2016 BESSY HERNANDEZ MD Ot Q21.1 ATRIAL SEPTAL DEFECT 11/24/2016 BESSY HERNANDEZ MD Ot R07.89 OTHER CHEST PAIN 11/24/2016 BESSY HERNANDEZ MD Ot Z68.35 BODY MASS INDEX (BMI) 35.0-35.9, ADULT 11/24/2016 BESSY HERNANDEZ MD Ot Z79.899 OTHER DETENTION (CURRENT) DRUG THERAPY 11/24/2016 BESSY HERNANDEZ MD Ot Z82.49 FAMILY HX OF ISCHEM HEART DIS AND OTH DI 12/08/2016 BESSY HERNANDEZ MD Ot Z53.9 PROCEDURE AND TREATMENT NOT CARRIED OUT, 12/16/2016 BESSY HERNANDEZ MD Ot I10 ESSENTIAL (PRIMARY) HYPERTENSION 12/16/2016 BESSY HERNANDEZ MD Ot I48.0 PAROXYSMAL ATRIAL FIBRILLATION 12/16/2016 BESSY HERNANDEZ MD Ot Q21.1 ATRIAL SEPTAL DEFECT 12/16/2016 BESSY HERNANDEZ MD Ot R07.89 OTHER CHEST PAIN 04/01/2017 BESSY HERNANDEZ MD Ot E66.9 OBESITY, UNSPECIFIED 04/01/2017 BESSY HERNANDEZ MD Ot E78.5 HYPERLIPIDEMIA, UNSPECIFIED 04/01/2017 BESSY HERNANDEZ MD Ot E87.6 HYPOKALEMIA 04/01/2017 BESSY HERNANDEZ MD Ot F17.220 NICOTINE DEPENDENCE, CHEWING TOBACCO, UN 04/01/2017 BESSY HERNANDEZ MD Ot G47.33 OBSTRUCTIVE SLEEP APNEA (ADULT) (PEDIATR 04/01/2017 BESSY HERNANDEZ MD, Ot I10 ESSENTIAL (PRIMARY) HYPERTENSION 04/01/2017 BESSY HERNANDEZ MD, Ot I48.0 PAROXYSMAL ATRIAL FIBRILLATION 04/01/2017 BESSY HERNANDEZ MD, Ot I48.92 UNSPECIFIED ATRIAL FLUTTER 04/01/2017 BESSY HERNANDEZ MD, Ot K21.9 GASTRO-ESOPHAGEAL REFLUX DISEASE WITHOUT 04/01/2017 BESSY HERNANDEZ MD, Ot K44.9 DIAPHRAGMATIC HERNIA WITHOUT OBSTRUCTION 04/01/2017 BESSY HERNANDEZ MD, Ot Z68.35 BODY MASS INDEX (BMI) 35.0-35.9, ADULT 04/01/2017 BESSY HERNANDEZ MD, Ot Z82.49 FAMILY HX OF ISCHEM HEART DIS AND OTH DI Procedures Code [place] [address] PSYCH PHARM MGMT 02/10/2012 [id number] SIKH OF CARDIAC RHYTHM, SINGLE 03/30/2017 Results Test Result Range Automated blood complete [...] resistant Staphylococcus aureus (MRSA) screening culture NEG [facility] Methicillin resistant Staphylococcus aureus (MRSA) screening culture - 17:40 Methicillin resistant Staphylococcus aureus (MRSA) screening culture NEG [facility] Automated blood complete blood count (hemogram) panel - 03/29/17 04:45 Blood leukocytes automated count (number/volume) 4.5 10*3/uL 4.3-11.0 Blood erythrocytes automated count (number/volume) 4.91 10*6/uL 4.35-5.85 Venous blood hemoglobin measurement (mass/volume) 15.3 g/dL 13.3-17.7 Blood hematocrit (volume fraction) 42 % 40-54 Automated erythrocyte mean corpuscular volume 86 [foz_us] 80-99 Automated erythrocyte mean corpuscular hemoglobin (mass per erythrocyte) 31 pg 25-34 Automated erythrocyte mean corpuscular hemoglobin concentration measurement ( mass/volume) 36 g/dL 32-36 Automated erythrocyte distribution width ratio 13.6 % 10.0-14.5 Automated blood platelet count (count/volume) 184 10*3/uL 130-400 Automated blood platelet mean volume measurement 10.2 [foz_us] 7.4-10.4 Comprehensive metabolic panel - 03/29/17 04:45 Serum or plasma sodium measurement (moles/volume) 143 mmol/L 135-145 Serum or plasma potassium measurement (moles/volume) 3.4 mmol/L 3.6-5.0 Serum or plasma chloride measurement (moles/volume) 103 mmol/L 98-107 Carbon dioxide 27 mmol/L 21-32 Serum or plasma anion gap determination (moles/volume) 13 mmol/L 5-14 Serum or plasma urea nitrogen measurement (mass/volume) 8 mg/dL 7-18 Serum or plasma creatinine measurement (mass/volume) 0.82 mg/dL 0.60-1.30 Serum or plasma urea nitrogen/creatinine mass ratio 10 NRG Serum or plasma creatinine measurement with calculation of estimated glomerular filtration rate > NRG Serum or plasma glucose measurement (mass/volume) 104 mg/dL 70-105 Serum or plasma calcium measurement (mass/volume) 9.2 mg/dL 8.5-10.1 Serum or plasma total bilirubin measurement (mass/volume) 1.0 mg/dL 0.1-1.0 Serum or plasma alkaline phosphatase measurement (enzymatic activity/volume) 81 U/L 40-136 Serum or plasma aspartate aminotransferase measurement (enzymatic activity/ volume) 54 U/L 5-34 Serum or plasma alanine aminotransferase measurement (enzymatic activity/volume ) 79 U/L 0-55 Serum or plasma protein measurement (mass/volume) 7.1 g/dL 6.4-8.2 Serum or plasma albumin measurement (mass/volume) 3.9 g/dL 3.2-4.5 Serum or plasma phosphate measurement (mass/volume) - 03/29/17 04:45 Serum or plasma phosphate measurement (mass/volume) 3.8 mg/dL 2.3-4.7 Magnesium - 03/29/17 04:45 Magnesium 2.2 mg/dL 1.8-2.4 Complete blood count (CBC) with automated white blood cell (WBC) differential - 03/30/17 04:00 Blood leukocytes automated count (number/volume) 5.1 10*3/uL 4.3-11.0 Blood erythrocytes automated count (number/volume) 4.78 10*6/uL 4.35-5.85 Venous blood hemoglobin measurement (mass/volume) 14.9 g/dL 13.3-17.7 Blood hematocrit (volume fraction) 41 % 40-54 Automated erythrocyte mean corpuscular volume 86 [foz_us] 80-99 Automated erythrocyte mean corpuscular hemoglobin (mass per erythrocyte) 31 pg 25-34 Automated erythrocyte mean corpuscular hemoglobin concentration measurement ( mass/volume) 36 g/dL 32-36 Automated erythrocyte distribution width ratio 13.4 % 10.0-14.5 Automated blood platelet count (count/volume) 183 10*3/uL 130-400 Automated blood platelet mean volume measurement 10.2 [foz_us] 7.4-10.4 Automated blood neutrophils/100 leukocytes 45 % 42-75 Automated blood lymphocytes/100 leukocytes 39 % 12-44 Blood monocytes/100 leukocytes 12 % 0-12 Automated blood eosinophils/100 leukocytes 4 % 0-10 Automated blood basophils/100 leukocytes 0 % 0-10 Blood neutrophils automated count (number/volume) 2.3 10*3 1.8-7.8 Blood lymphocytes automated count (number/volume) 2.0 10*3 1.0-4.0 Blood monocytes automated count (number/volume) 0.6 10*3 0.0-1.0 Automated eosinophil count 0.2 10*3/uL 0.0-0.3 Automated blood basophil count (count/volume) 0.0 10*3/uL 0.0-0.1 Whole blood basic metabolic panel - 03/30/17 04:00 Serum or plasma sodium measurement (moles/volume) 140 mmol/L 135-145 Serum or plasma potassium measurement (moles/volume) 3.7 mmol/L 3.6-5.0 Serum or plasma chloride measurement (moles/volume) 105 mmol/L 98-107 Carbon dioxide 28 mmol/L 21-32 Serum or plasma anion gap determination (moles/volume) 7 mmol/L 5-14 Serum or plasma urea nitrogen measurement (mass/volume) 9 mg/dL 7-18 Serum or plasma creatinine measurement (mass/volume) 0.85 mg/dL 0.60-1.30 Serum or plasma urea nitrogen/creatinine mass ratio 11 NRG Serum or plasma creatinine measurement with calculation of estimated glomerular filtration rate > NRG Serum or plasma glucose measurement (mass/volume) 102 mg/dL 70-105 Serum or plasma calcium measurement (mass/volume) 9.5 mg/dL 8.5-10.1 Serum or plasma phosphate measurement (mass/volume) - 03/30/17 04:00 Serum or plasma phosphate measurement (mass/volume) 3.9 mg/dL 2.3-4.7 Magnesium - 03/30/17 04:00 Magnesium 2.3 mg/dL 1.8-2.4 THYROID STIMULATING HORMONE - 03/30/17 04:00 THYROID STIMULATING HORMONE 1.30 u[iU]/mL 0.35-4.94 Complete blood count (CBC) with automated white blood cell (WBC) differential - 03/31/17 04:00 Blood leukocytes automated count (number/volume) 5.2 10*3/uL 4.3-11.0 Blood erythrocytes automated count (number/volume) 4.55 10*6/uL 4.35-5.85 Venous blood hemoglobin measurement (mass/volume) 14.2 g/dL 13.3-17.7 Blood hematocrit (volume fraction) 39 % 40-54 Automated erythrocyte mean corpuscular volume 86 [foz_us] 80-99 Automated erythrocyte mean corpuscular hemoglobin (mass per erythrocyte) 31 pg 25-34 Automated erythrocyte mean corpuscular hemoglobin concentration measurement ( mass/volume) 36 g/dL 32-36 Automated erythrocyte distribution width ratio 13.3 % 10.0-14.5 Automated blood platelet count (count/volume) 175 10*3/uL 130-400 Automated blood platelet mean volume measurement 10.3 [foz_us] 7.4-10.4 Automated blood neutrophils/100 leukocytes 47 % 42-75 Automated blood lymphocytes/100 leukocytes 38 % 12-44 Blood monocytes/100 leukocytes 12 % 0-12 Automated blood eosinophils/100 leukocytes 3 % 0-10 Automated blood basophils/100 leukocytes 1 % 0-10 Blood neutrophils automated count (number/volume) 2.4 10*3 1.8-7.8 Blood lymphocytes automated count (number/volume) 2.0 10*3 1.0-4.0 Blood monocytes automated count (number/volume) 0.6 10*3 0.0-1.0 Automated eosinophil count 0.1 10*3/uL 0.0-0.3 Automated blood basophil count (count/volume) 0.0 10*3/uL 0.0-0.1 Whole blood basic metabolic panel - 03/31/17 04:00 Serum or plasma sodium measurement (moles/volume) 143 mmol/L 135-145 Serum or plasma potassium measurement (moles/volume) 3.6 mmol/L 3.6-5.0 Serum or plasma chloride measurement (moles/volume) 105 mmol/L 98-107 Carbon dioxide 25 mmol/L 21-32 Serum or plasma anion gap determination (moles/volume) 13 mmol/L 5-14 Serum or plasma urea nitrogen measurement (mass/volume) 8 mg/dL 7-18 Serum or plasma creatinine measurement (mass/volume) 0.82 mg/dL 0.60-1.30 Serum or plasma urea nitrogen/creatinine mass ratio 10 NRG Serum or plasma creatinine measurement with calculation of estimated glomerular filtration rate > NRG Serum or plasma glucose measurement (mass/volume) 103 mg/dL 70-105 Serum or plasma calcium measurement (mass/volume) 8.9 mg/dL 8.5-10.1 Serum or plasma phosphate measurement (mass/volume) - 03/31/17 04:00 Serum or plasma phosphate measurement (mass/volume) 3.4 mg/dL 2.3-4.7 Magnesium - 03/31/17 04:00 Magnesium 2.3 mg/dL 1.8-2.4 Complete blood count (CBC) with automated white blood cell (WBC) differential - 04/01/17 04:00 Blood leukocytes automated count (number/volume) 5.1 10*3/uL 4.3-11.0 Blood erythrocytes automated count (number/volume) 4.62 10*6/uL 4.35-5.85 Venous blood hemoglobin measurement (mass/volume) 14.5 g/dL 13.3-17.7 Blood hematocrit (volume fraction) 40 % 40-54 Automated erythrocyte mean corpuscular volume 86 [foz_us] 80-99 Automated erythrocyte mean corpuscular hemoglobin (mass per erythrocyte) 31 pg 25-34 Automated erythrocyte mean corpuscular hemoglobin concentration measurement ( mass/volume) 36 g/dL 32-36 Automated erythrocyte distribution width ratio 13.4 % 10.0-14.5 Automated blood platelet count (count/volume) 180 10*3/uL 130-400 Automated blood platelet mean volume measurement 10.2 [foz_us] 7.4-10.4 Automated blood neutrophils/100 leukocytes 44 % 42-75 Automated blood lymphocytes/100 leukocytes 39 % 12-44 Blood monocytes/100 leukocytes 13 % 0-12 Automated blood eosinophils/100 leukocytes 3 % 0-10 Automated blood basophils/100 leukocytes 1 % 0-10 Blood neutrophils automated count (number/volume) 2.3 10*3 1.8-7.8 Blood lymphocytes automated count (number/volume) 2.0 10*3 1.0-4.0 Blood monocytes automated count (number/volume) 0.7 10*3 0.0-1.0 Automated eosinophil count 0.2 10*3/uL 0.0-0.3 Automated blood basophil count (count/volume) 0.0 10*3/uL 0.0-0.1 Whole blood basic metabolic panel - 04/01/17 04:00 Serum or plasma sodium measurement (moles/volume) 142 mmol/L 135-145 Serum or plasma potassium measurement (moles/volume) 3.9 mmol/L 3.6-5.0 Serum or plasma chloride measurement (moles/volume) 105 mmol/L 98-107 Carbon dioxide 27 mmol/L 21-32 Serum or plasma anion gap determination (moles/volume) 10 mmol/L 5-14 Serum or plasma urea nitrogen measurement (mass/volume) 8 mg/dL 7-18 Serum or plasma creatinine measurement (mass/volume) 0.86 mg/dL 0.60-1.30 Serum or plasma urea nitrogen/creatinine mass ratio 9 NRG Serum or plasma creatinine measurement with calculation of estimated glomerular filtration rate > NRG Serum or plasma glucose measurement (mass/volume) 93 mg/dL 70-105 Serum or plasma calcium measurement (mass/volume) 9.3 mg/dL 8.5-10.1 Serum or plasma phosphate measurement (mass/volume) - 04/01/17 04:00 Serum or plasma phosphate measurement (mass/volume) 3.9 mg/dL 2.3-4.7 Magnesium - 04/01/17 04:00 Magnesium 2.4 mg/dL 1.8-2.4 Encounters ACCT No. Visit Date/Time Discharge Status Pt. Type Provider Facility Loc./Unit Complaint [id number] 01/17/2014 09:12:00 01/17/2014 23:59:59 [facility] Outpatient DANYELLE SERRANO APRN [id number] 10/18/2013 09:03:00 10/18/2013 23:59:59 C[facility] Outpatient DANYELLE SERRANO APRN [id number] 04/17/2013 14:05:00 04/17/2013 23:59:59 CLS Outpatient LUIS ALBERTO ARRIAGA MD [id number] 11/04/2012 09:49:00 11/04/2012 23:59:59 CLS Outpatient MIRIAN TROTTER DO [id number] 01/24/2012 11:16:00 01/24/2012 23:59:59 [place] [id number] 09/08/2011 10:53:00 09/08/2011 23:59:59 CLS Outpatient [id number] 06/24/2012 13:27:00 Document Registration [id number] 07/06/2017 09:30:00 07/06/2017 23:59:59 CLS Preadmit BESSY HERNANDEZ MD [facility] CATH A-FIB [id number] 03/28/2017 14:45:00 04/01/2017 11:08:00 DIS Inpatient BESSY HERNANDEZ MD [facility] ICU A-FIB [id number] 12/08/2016 11:58:00 12/08/2016 23:59:59 CLS Outpatient BESSY HERNANDEZ MD [facility] CARD I48.0 AF [id number] 11/24/2016 06:56:00 11/24/2016 23:59:59 CLS Outpatient BESSY HERNANDEZ MD [facility] SDC AFIB/FATIGUE [id number] 11/24/2016 06:53:00 11/24/2016 13:10:00 DIS Outpatient BESSY HERNANDEZ MD [facility] CATH A-FIB,FATIGUE [id number] 06/03/2016 14:44:00 06/03/2016 23:59:59 CLS Outpatient MICHELINE ISSA [facility] CARD I48.0 [id number] 06/03/2016 14:00:00 06/03/2016 14:30:00 DIS Outpatient BESSY HERNANDEZ MD [facility] SLEEP G47.33 [id number] 09/09/2014 11:45:00 09/09/2014 23:59:59 CLS Outpatient MICHELINE ISSA [facility] CARD ASD,CP,HTN, PALPITATIONS [id number] 01/17/2013 09:22:00 04/17/2013 00:01:00 DIS Outpatient DAVID GUPTA, BESSY Bravo [facility] CARD CHEST PAIN,DYSPNEA, PALPITATION,SYNCOPE [id number] 04/07/2018 08:54:00 ACT Emergency GRIFFIN GERMAN DO [facility] ER FS A FIB [id number] 04/18/2013 09:00:00 Document Registration
[2018-04-07 09:15] VITALS: BP 155/129
[2018-04-07] MEDS ORDERED: DILTIAZEM 25 MG/5 ML INJ (CARDIZEM) VIAL IVP ONE (09:15)
[2018-04-07] MEDS ORDERED: NS IV 1000 ML 1,000 ML IV SCH (09:15)
--- NOTE | 2018-04-07 09:16 | ED Cardiac General ---
History of Present Illness General Chief Complaint: Cardiac/General Problems Stated Complaint: A FIB History of Present Illness Date Seen by Provider: Apr 07, 2018 Time Seen by Provider: 08:55 Initial Comments The patient is a pleasant 52-year-old male who presents for evaluation of palpitations. He reports a history of atrial fibrillation and takes Eliquis and Cardizem along with some other blood pressure medications. He has not taken his medications today. He believes that his symptoms started yesterday afternoon. He was diagnosed with atrial fibrillation several years ago. He denies chest pain, shortness of breath, leg pain or swelling, back or flank pain, abdominal pain, dizziness, syncope, nausea or vomiting, fevers or chills. Is alert and oriented 4, calm, and appears to be in no distress. Severity: mild Activities at Onset: none NTG SL HEMATOLOGIST: No ASA po HEMATOLOGIST: No Allergies and Home Medications Allergies Coded Allergies: Penicillins (Verified Allergy, Unknown, 11/24/16) enalapril (Verified Allergy, Unknown, 11/24/16) Home Medications Apixaban 5 Mg Tablet, 5 MG PO BID, (Reported) Clonazepam 0.25 Mg Tab.rapdis, 0.25 MG PO BID, (Reported) Diltiazem HCl 240 Mg Cap.er.24h, 240 MG PO DAILY Prescribed by: BESSY HERNANDEZ on 04/01/17 1001 Duloxetine HCl 60 Mg Capsule.dr, 60 MG PO DAILY, (Reported) Metoprolol Succinate 50 Mg Tab.er.24h, 50 MG PO HS, (Reported) Multivit-Min/FA/Lycopen/Lutein 1 Each Tablet, 1 TAB PO 1200, (Reported) Garfield-3/Dha/Epa/Fish Oil 1 Each Capsule, 1,000 MG PO TID, (Reported) Sotalol HCl 120 Mg Tablet, 120 MG PO BID Prescribed by: BESSY HERNANDEZ on 04/01/17 1001 Patient Home Medication List Home Medication List Reviewed: Yes Review of Systems Review of Systems Constitutional: no symptoms reported EENTM: No Symptoms Reported Respiratory: No Symptoms Reported Cardiovascular: Irregular Heart Rate Gastrointestinal: No Symptoms Reported Genitourinary: No Symptoms Reported Musculoskeletal: no symptoms reported Skin: no symptoms reported Psychiatric/Neurological: No Symptoms Reported Endocrine: No Symptoms Reported Hematologic/Lymphatic: No Symptoms Reported All Other Systems Reviewed Negative Unless Noted: Yes Past Ucvdlch-Cwnzct-Sdbqbh Hx Past Med/Social Hx: Reviewed Nursing Past Med/Soc Hx Patient Social History Recent Foreign Travel: No Contact w/Someone Who Travel: No Recent Hopitalizations: Yes Immunizations Up To Date Date of Pneumonia Vaccine: Mar 23, 2017 Date of Influenza Vaccine: Nov 16, 2016 Seasonal Allergies Seasonal Allergies: No Past Medical History Surgeries: Yes (Atrial Spetum Defect repair) Respiratory: Yes Sleep Apnea Currently Using CPAP: Yes Currently Using BIPAP: No Cardiac: Yes (Atrial spetum defect) Neurological: No Genitourinary: No Gastrointestinal: Yes Gastroesophageal Reflux, Hiatal Hernia Musculoskeletal: No Endocrine: No HEENT: No Loss of Vision: Denies Cancer: No Psychosocial: Yes Anxiety Integumentary: No Blood Disorders: No Adverse Reaction/Blood Tranf: No Family Medical History Reviewed Nursing Family Hx No Pertinent Family Hx Physical Exam Vital Signs Vital Signs - First Documented 04/07/18 04/07/18 09:08 09:44 Temp 97.0 Pulse 123 Resp 14 B/P (MAP) 138/92 (107) Pulse Ox 97 O2 Delivery Room Air O2 Flow Rate 2.00 Capillary Refill : Height, Weight, BMI Height: 5'7.00" Weight: 227lbs. 3.2oz. 103.759670tg; 35.6 BMI Method: General Appearance: No Apparent Distress, WD/WN HEENT: PERRL/EOMI, TMs Normal, Normal ENT Inspection, Pharynx Normal Respiratory: Chest Non Tender, Lungs Clear, Normal Breath Sounds, No Accessory Muscle Use, No Respiratory Distress Cardiovascular: No Edema, No Gallop, No JVD, Normal Peripheral Pulses, Irregularly Irregular Gastrointestinal: Normal Bowel Sounds, No Pulsatile Mass, Non Tender, Soft Extremity: Normal Capillary Refill, Normal Inspection, Normal Range of Motion, Non Tender, No Calf Tenderness Neurologic/Psychiatric: Alert, Oriented x3, No Motor/Sensory Deficits, Normal Mood/Affect Skin: Normal Color, Warm/Dry Progress/Results/Core Measures Results/Orders Lab Results Laboratory Tests Test 04/07/18 09:00 Range/Units White Blood Count 5.1 4.3-11.0 10^3/uL Red Blood Count 4.64 4.35-5.85 10^6/uL Hemoglobin 14.8 13.3-17.7 G/DL Hematocrit 42 40-54 % Mean Corpuscular Volume 90 80-99 FL Mean Corpuscular Hemoglobin 32 25-34 PG Mean Corpuscular Hemoglobin Concent 36 32-36 G/DL Red Cell Distribution Width 12.8 10.0-14.5 % Platelet Count 212 130-400 10^3/uL Mean Platelet Volume 10.0 7.4-10.4 FL Neutrophils (%) (Auto) 54 42-75 % Lymphocytes (%) (Auto) 30 12-44 % Monocytes (%) (Auto) 13 H 0-12 % Eosinophils (%) (Auto) 2 0-10 % Basophils (%) (Auto) 1 0-10 % Neutrophils # (Auto) 2.7 1.8-7.8 X 10^3 Lymphocytes # (Auto) 1.5 1.0-4.0 X 10^3 Monocytes # (Auto) 0.7 0.0-1.0 X 10^3 Eosinophils # (Auto) 0.1 0.0-0.3 10^3/uL Basophils # (Auto) 0.0 0.0-0.1 10^3/uL Sodium Level 141 135-145 MMOL/L Potassium Level 3.6 3.6-5.0 MMOL/L Chloride Level 101 98-107 MMOL/L Carbon Dioxide Level 28 21-32 MMOL/L Anion Gap 12 5-14 MMOL/L Blood Urea Nitrogen 10 7-18 MG/DL Creatinine 0.95 0.60-1.30 MG/DL Estimat Glomerular Filtration Rate > 60 BUN/Creatinine Ratio 11 Glucose Level 118 H 70-105 MG/DL Calcium Level 9.2 8.5-10.1 MG/DL Corrected Calcium 8.9 8.5-10.1 MG/DL Magnesium Level 1.9 1.8-2.4 MG/DL Total Bilirubin 0.9 0.1-1.0 MG/DL Aspartate Amino Transf (AST/SGOT) 69 H 5-34 U/L Alanine Aminotransferase (ALT/SGPT) 91 H 0-55 U/L Alkaline Phosphatase 94 40-136 U/L Total Protein 7.8 6.4-8.2 GM/DL Albumin 4.4 3.2-4.5 GM/DL My Orders Orders - MAXI MOYA DO Cbc With Automated Diff (04/07/18 09:08) Magnesium (04/07/18 09:08) Ekg Tracing (04/07/18 09:08) Comprehensive Metabolic Panel (04/07/18 09:08) O2 (04/07/18 09:08) Monitor-Rhythm Ecg Trace Only (04/07/18 09:08) Saline Lock/Iv-Start (04/07/18 09:08) Diltiazem Injection (Cardizem Injection) (04/07/18 09:15) Ns Iv 1000 Ml (Sodium Chloride 0.9%) (04/07/18 09:15) Ekg Tracing (04/07/18 09:55) Medications Given in ED Current Medications Medications Dose Ordered Sig/Sarai Route Start Time Stop Time Status Last Admin Dose Admin Diltiazem HCl 15 mg ONCE ONCE IVP 04/07/18 09:15 04/07/18 09:16 DC 04/07/18 09:26 15 MG Vital Signs/I&O 04/07/18 04/07/18 04/07/18 04/07/18 09:08 09:15 09:30 09:44 Temp 97.0 Pulse 123 123 115 Resp 14 16 16 B/P (MAP) 138/92 (107) 155/129 (138) 120/66 (84) Pulse Ox 97 100 O2 Delivery Room Air Room Air Room Air Nasal Cannula O2 Flow Rate 2.00 04/07/18 09:45 Pulse 95 Resp 16 B/P (MAP) 128/62 (84) O2 Delivery Room Air Progress Progress Note : Time: 10:15 Progress Note @1015 - Heart rate is now in the 80s and appears to be in normal sinus rhythm. A repeat EKG is being performed at this time. The patient states he feels much better and would like to go home soon. Advised the patient to continue taking his home medications and to follow-up with his dehairing machine tender in the next 2-3 days. @1016 - EKG at 1013 shows normal sinus rhythm, no acute ischemic findings, no STEMI, read and interpreted by myself Initial ECG Impression Date: Apr 07, 2018 Initial ECG Impression Time: 08:59 Initial ECG Rate: 133 Initial ECG Rhythm: A Fib/Flutter Initial ECG Intervals: Normal Initial ECG Impression: Atrial Fibrillation w/RVR Departure Impression Primary Impression: PAROXYSMAL ATRIAL FIBRILLATION Disposition: 01 HOME, SELF-CARE Condition: Stable Departure-Patient Inst. Decision time for Depature: 10:20 Referrals: LISA CHO MD (PCP/Family) Primary Care Physician Patient Instructions: Atrial Fibrillation (DC) Add. Discharge Instructions: Follow-up with her dehairing machine tender the next 2-3 days. Continue to take her home medications as directed. Return to the ER for new or worsening symptoms. MAXI MOYA DO Apr 07, 2018 09:16
[2018-04-07 09:26] LABS: HEMATOCRIT 42 % (40-54); HEMOGLOBIN 14.8 G/DL (13.3-17.7); MEAN CORPUSCULAR HEMOGLOBIN 32 PG (25-34); MEAN CORPUSCULAR HGB CONC 36 G/DL (32-36); MEAN CORPUSCULAR VOLUME 90 FL (80-99); WHITE BLOOD COUNT 5.1 10^3/uL (4.3-11.0)
[2018-04-07 09:27] LABS: BASOPHILS % (AUTO) 1 % (0-10); EOSINOPHILS # (AUTO) 0.1 10^3/uL (0.0-0.3); EOSINOPHILS % (AUTO) 2 % (0-10); LYMPHOCYTES # (AUTO) 1.5 X 10^3 (1.0-4.0); LYMPHOCYTES % (AUTO) 30 % (12-44); MONOCYTES # (AUTO) 0.7 X 10^3 (0.0-1.0); MONOCYTES % (AUTO) 13 % (0-12); NEUTROPHILS # (AUTO) 2.7 X 10^3 (1.8-7.8); NEUTROPHILS % (AUTO) 54 % (42-75); PLATELET COUNT 212 10^3/uL (130-400); RED CELL DISTRIBUTION WIDTH 12.8 % (10.0-14.5)
[2018-04-07 09:30] VITALS: BP 120/66
[2018-04-07 09:40] LABS: ALKALINE PHOSPHATASE 94 U/L (40-136); BILIRUBIN,TOTAL 0.9 MG/DL (0.1-1.0); BUN/CREATININE RATIO 11; CALCIUM 9.2 MG/DL (8.5-10.1); CARBON DIOXIDE 28 MMOL/L (21-32); CHLORIDE 101 MMOL/L (98-107); CREATININE SERUM 0.95 MG/DL (0.60-1.30); GFR ESTIMATED > 60; GLUCOSE 118 MG/DL (70-105); MAGNESIUM 1.9 MG/DL (1.8-2.4); POTASSIUM 3.6 MMOL/L (3.6-5.0); SODIUM 141 MMOL/L (135-145)
[2018-04-07 09:41] LABS: ALANINE AMINOTRANSFERASE 91 U/L (0-55); ALBUMIN 4.4 GM/DL (3.2-4.5); TOTAL PROTEIN 7.8 GM/DL (6.4-8.2)
[2018-04-07 09:45] VITALS: BP 128/62
[2018-04-07 10:40] VITALS: BP 122/82
== END 2018-04-07 10:35 | disposition home or self-care (01) ==
LOC: EDUNIT# 08:53 → ER FS 08:54
DX: I48.0 Paroxysmal atrial fibrillation (principal); G47.30 Sleep apnea, unspecified; K21.9 Gastro-esophageal reflux disease without esophagitis; F41.9 Anxiety disorder, unspecified; Z87.19 Personal history of other diseases of the digestive system; Z98.890 Other specified postprocedural states; Z88.0 Allergy status to penicillin; Z88.8 Allergy status to other drugs, medicaments and biological substances; Z79.01 Long term (current) use of anticoagulants
CPT/HCPCS: 36415; 80053; 83735; 85025; 93005; 93041; 96361; 96374

== ENCOUNTER → 2018-05-08 | Outpatient (CLI) | payer BC | LOC: CARD 09:10 | PROVIDERS: ATTEND Physician Assistant | DX: I48.91 Unspecified atrial fibrillation (principal); Q21.1 Atrial septal defect; R07.89 Other chest pain; I10 Essential (primary) hypertension | CPT/HCPCS: 93306 ==

== ENCOUNTER → 2019-04-16 | Outpatient (CLI) | payer BC ==
[~2019-04-16] VITALS: Ht 170 cm; Wt 108.0 kg
[~2019-04-16] MED LIST changes: +CATHETER FLUSH 10 ML SYR IV PRN; +DILT240C92 PO; -DILT240C97 PO; -DULO60CA58 PO; +DULO60CA59 PO; -METO-370 PO; -METO-395 PO; +METO50TA7 PO; +MTP100TCR PO
--- NOTE | 2019-04-16 12:07 | STRESS TEST ---
DATE OF SERVICE: 04/16/2019 EXERCISE MYOVIEW STRESS TEST REPORT REFERRING PHYSICIAN: Dr. Pozo. Baseline heart rate is 80, baseline blood pressure 145/83. Baseline EKG is sinus rhythm with no ischemic changes. In summary, the patient was injected with 10.2 mCi of technetium-99 Myoview and the resting images were obtained. Then, the patient started exercising with a baseline heart rate, blood pressure and EKG mentioned above. The patient was able to exercise for 6 minutes on standard Burke protocol. With peak exercise level, EKG was showing nondiagnostic changes. Blood pressure was 241/71. During recovery, heart rate and blood pressure returned to baseline. EKG returned to baseline. The resting and stress images were reviewed and compared in the short axis, horizontal long axis, and vertical long axis views. Review of the images showed diaphragmatic attenuation with typical male pattern, mild decreased uptake at the inferoapical segment with subtle reversibility, no significant ischemia or infarction. SSS is 3, SDS 1. TID value 1.05. On the gated images, the left ventricle appeared to be normal size with normal contractility. Calculated ejection fraction is 68%. CONCLUSION: 1. Fair exercise tolerance for a total of 6 minutes on standard Burke protocol, total of 7.3 METS achieving 91% of maximum expected heart rate. 2. Severe hypertensive response to exercise returned to baseline during recovery with peak blood pressure 241/79. 3. Nondiagnostic EKG changes with exercise returned to baseline during recovery. 4. No diaphragmatic attenuation with typical male pattern with no significant ischemia or infarction on SPECT images. 5. Normal left ventricular size with normal contractility. Calculated ejection fraction 68%. Job ID: [id number] DocumentID: [id number] Dictated Date: 04/16/2019 11:27:28 Reeler Operator Date: 04/16/2019 12:07:10 Dictated By: BESSY HERNANDEZ MD
== END ==
LOC: CARD 08:45
PROVIDERS: ATTEND Internal Medicine Cardiovascular Disease
DX: I48.0 Paroxysmal atrial fibrillation (principal); Q21.1 Atrial septal defect; I10 Essential (primary) hypertension
CPT/HCPCS: 78452; 93017

== ENCOUNTER 2019-10-09 16:57 | Emergency (ER) | payer BC ==
[~2019-10-09] VITALS: Ht 170.2 cm; Wt 109.3 kg
[~2019-10-09 16:57] MED LIST changes: -CATHETER FLUSH 10 ML SYR IV PRN
[2019-10-09 17:01] VITALS: BP 148/86
--- NOTE | 2019-10-09 17:14 | ED Lower Extremity ---
General Chief Complaint: Lower Extremity Stated Complaint: SWELLING/PAIN/REDNESS LEFT LEG Source: patient, RN notes reviewed, old records Exam Limitations: no limitations History of Present Illness Date Seen by Provider: Oct 09, 2019 Time Seen by Provider: 17:00 Initial Comments This patient is a 53-year-old male that presents to the emerge from for left lower extremity pain and swelling. Patient was seen in local clinic advised come to the emergency Department concerns for DVT. Patient does have a history of atrial fibrillation and takes Elmquist daily but does admit that he does not take his medications correctly and some days he only takes half a dose oral he will miss a dose. Is been doing this for some time. Patient states for the past 4 days had increased tenderness in the posterior knee and swelling to the distal left leg. Did discuss at length with patient about my concerns for DVT to the extremity. Patient states understanding. Patient advised that we do not have ultrasound available to rule in or rule out a DVT but did offer full medical's screening exam to our capability. We did discuss multiple options. Patient has elected not to have any medical screening exam at this facility. States that he would like to go to [facility] in [place]. He declined a medical screening exam here. We did discuss further with patient and we will call [facility] advised him that the patient will be coming to their facility. Again this patient was offered full medical screening exam and has declined at this facility. Patient is instructed to continue with his home Elmquist and to take it properly. Onset: last week Pain/Injury Location: right leg Allergies and Home Medications Allergies Coded Allergies: Penicillins (Verified Allergy, Unknown, 11/24/16) enalapril (Verified Allergy, Unknown, 11/24/16) Home Medications Apixaban 5 Mg Tablet, 5 MG PO BID, (Reported) Clonazepam 0.25 Mg Tab.rapdis, 0.25 MG PO BID, (Reported) Diltiazem HCl 240 Mg Cap.er.24h, 240 MG PO DAILY Prescribed by: BESSY HERNANDEZ on 04/01/17 1001 Duloxetine HCl 60 Mg Capsule.dr, 60 MG PO DAILY, (Reported) Metoprolol Succinate 50 Mg Tab.er.24h, 50 MG PO HS, (Reported) Multivit-Min/FA/Lycopen/Lutein 1 Each Tablet, 1 TAB PO 1200, (Reported) Shawmut-3/Dha/Epa/Fish Oil 1 Each Capsule, 1,000 MG PO TID, (Reported) Sotalol HCl 120 Mg Tablet, 120 MG PO BID Prescribed by: BESSY HERNANDEZ on 04/01/17 1001 Patient Home Medication List Home Medication List Reviewed: Yes Review of Systems Constitutional: No no symptoms reported; see HPI; No chills, No diaphoresis, No dizziness, No fever, No malaise, No weakness, No weight gain, No weight loss, No other EENTM: No see HPI, No no symptoms reported, No ear discharge, No hearing loss, No ear pain, No blurred vision, No double vision, No eye pain, No tearing, No vision loss, No dental problems, No hoarseness, No mouth pain, No mouth swelling, No epistaxis, No nose congestion, No nose pain, No throat pain, No throat swelling, No other Respiratory: No no symptoms reported, No see HPI, No cough, No dyspnea on exertion, No hemoptysis, No orthopnea, No phlegm, No short of breath, No stridor, No wheezing, No other Cardiovascular: No no symptoms reported, No see HPI, No chest pain, No edema, No Hx of Intervention, No palpitations, No syncope, No vascular heart diseas, No other Gastrointestinal: No RUQ, No LUQ, No RLQ, No LLQ, No no symptoms reported, No see HPI, No abdominal pain, No constipation, No diarrhea, No dysphagia, No hematemesis, No heartburn, No jaundice, No loss of appetite, No melena, No nausea, No vomiting, No other Genitourinary: No no symptoms reported, No see HPI, No decreased output, No discharge, No dysuria, No frequency, No hematuria, No hesitancy, No incontinence, No nocturia, No pain, No other Musculoskeletal: No no symptoms reported; see HPI; No back pain, No gout, No joint pain; joint swelling, muscle pain; No muscle stiffness, No muscle cramps, No muscle twitching, No muscle weakness, No neck pain, No other Skin: No no symptoms reported, No see HPI, No change in color, No change in hair/nails, No dryness, No hx of skin cancer, No lesions, No lumps, No pruritus, No rash, No other Psychiatric/Neurological: Denies No Symptoms Reported, Denies See HPI, Denies Anxiety, Denies Depressed, Denies Emotional Problems, Denies Headache, Denies Numbness, Denies Paresthesia, Denies Pre-Existing Deficit, Denies Seizure, Denies Tingling, Denies Tremors, Denies Weakness, Denies Other Past Lpawpze-Pyisdo-Ibjcer Hx Patient Social History Recent Foreign Travel: No Contact w/Someone Who Travel: No Recent Hopitalizations: No Immunizations Up To Date Date of Pneumonia Vaccine: Mar 23, 2017 Date of Influenza Vaccine: Nov 16, 2016 Seasonal Allergies Seasonal Allergies: No Past Medical History Surgeries: Yes (Cardiac Ablation) Respiratory: No Sleep Apnea Currently Using CPAP: Yes Currently Using BIPAP: No Cardiac: Yes Atrial Fibrillation, Irregular Heartbeat, Palpitations Neurological: No Genitourinary: No Gastrointestinal: No Gastroesophageal Reflux, Hiatal Hernia Musculoskeletal: No Endocrine: No HEENT: No Loss of Vision: Denies Cancer: No Psychosocial: No Anxiety Integumentary: No Blood Disorders: No Adverse Reaction/Blood Tranf: No Family Medical History No Pertinent Family Hx Physical Exam Vital Signs Capillary Refill : Height, Weight, BMI Height: 5'7.00" Weight: 225lbs. 3.2oz. [id number]; 37.37 BMI Method:Stated General Appearance: WD/WN, no apparent distress Cardiovascular: normal peripheral pulses, regular rate, rhythm, no edema, no gallop, no JVD, no murmur Respiratory: chest non-tender, lungs clear, normal breath sounds, no respiratory distress, no accessory muscle use Gastrointestinal: normal bowel sounds, non tender, soft, no organomegaly, no pulsatile mass Legs: left leg soft tissue tenderness Knees: left knee soft tissue tenderness, left knee swelling Skin: normal color, warm/dry Progress/Results/Core Measures Progress Progress Note : Time: 17:12 Progress Note This patient is a 53-year-old male that presents to the emerge from for left lower extremity pain and swelling. Patient was seen in local clinic advised come to the emergency Department concerns for DVT. Patient does have a history of atrial fibrillation and takes Elmquist daily but does admit that he does not take his medications correctly and some days he only takes half a dose oral he will miss a dose. Is been doing this for some time. Patient states for the past 4 days had increased tenderness in the posterior knee and swelling to the distal left leg. Did discuss at length with patient about my concerns for DVT to the extremity. Patient states understanding. Patient advised that we do not have ultrasound available to rule in or rule out a DVT but did offer full medical's screening exam to our capability. We did discuss multiple options. Patient has elected not to have any medical screening exam at this facility. States that he would like to go to [facility] in [place]. He declined a medical screening exam here. We did discuss further with patient and we will call [facility] advised him that the patient will be coming to their facility. Again this patient was offered full medical screening exam and has declined at this facility. Patient is instructed to continue with his home Elmquist and to take it properly. Departure Impression Primary Impression: Pain and swelling of left lower leg Disposition: 01 HOME, SELF-CARE Condition: Stable Departure-Patient Inst. Decision time for Depature: 17:13 Referrals: NO,LOCAL PHYSICIAN (PCP) Primary Care Physician Patient Instructions: Deep Vein Thrombosis (Blood Clots in the Legs) (DC) Add. Discharge Instructions: With discussion did discuss concerns of possible lower leg deep vein thrombosis. Patient should go directly to [facility] and [facility] for further evaluation as discussed. Patient is to continue his Elequist. Follow-up with PCP in 2-3 days. All discharge instructions reviewed with patient and/or family. Voiced understanding. TIRSO DIA MD Oct 09, 2019 17:14
== END 2019-10-09 17:24 | disposition home or self-care (01) ==
LOC: EDUNIT# 16:57 → ER FS 16:58
DX: M79.662 Pain in left lower leg (principal); M79.89 Other specified soft tissue disorders; F41.9 Anxiety disorder, unspecified; Z79.01 Long term (current) use of anticoagulants; Z88.0 Allergy status to penicillin; Z88.8 Allergy status to other drugs, medicaments and biological substances
CPT/HCPCS: 99283

== ENCOUNTER → 2020-10-07 | Outpatient (CLI) | payer BC ==
[~2020-10-07] MED LIST changes: -DRON400T2 PO; +DRON400T6 PO; +GADOBUTROL 10 MMOL/10 ML (GADAVIST) VIAL IV ONE
--- NOTE | 2020-10-07 16:37 | Diagnostic Imaging Report ---
PROCEDURE: MR imaging of the brain with and without contrast. TECHNIQUE: Multiplanar, multisequence MR imaging of the brain was performed with and without contrast. INDICATION: Vision loss in the left eye. COMPARISON: none FINDINGS: No acute ischemia, mass, or hemorrhage. Focal areas of T2 hyperintense signal are seen in the periventricular and subcortical white matter. The ventricles, cortical sulci, and basilar cisterns are symmetric and unremarkable. The sellar and suprasellar regions have a normal appearance. The brainstem and posterior fossa are unremarkable. The paranasal sinuses and mastoid air cells demonstrate normal signal characteristics. The globes and orbits are symmetric and unremarkable. No enhancement is seen along the course of the optic nerve. The extraocular muscles are symmetric and unremarkable. No post septal inflammatory changes are seen. The cavernous sinuses have a unremarkable appearance bilaterally. The scalp and calvarium have a normal appearance. IMPRESSION: 1. No acute ischemia, mass, or hemorrhage. No abnormal enhancement. 2. Unremarkable appearance of the globes and orbits. No evidence of optic neuritis or orbital mass. 3. Small amount of focal T2 hyperintense signal in the periventricular and subcortical white matter. Findings are favored to represent chronic microvascular disease or sequelae of migraine. Dictated by: Dictated on workstation # [id number]
== END ==
LOC: RAD 14:45
PROVIDERS: ATTEND Internal Medicine Cardiovascular Disease
DX: I63.549 Cerebral infarction due to unspecified occlusion or stenosis of unspecified cerebellar artery (principal)
CPT/HCPCS: 70553

== ENCOUNTER 2020-11-12 10:30 | Day surgery (SDC) | payer BC ==
[~2020-11-12] VITALS: Ht 170 cm; Wt 103.0 kg
[2020-11-12 10:15] VITALS: BP 146/78
[~2020-11-12 10:30] MED LIST changes: -GADOBUTROL 10 MMOL/10 ML (GADAVIST) VIAL IV ONE; +LIDOCAINE 1% INJ 20 ML 20 ML VIAL ONE
--- NOTE | 2020-11-12 10:57 | Implantation of Loop Monitor ---
Implant of Loop Monitior IMPLANTATION OF LOOP MONITOR REPORT DATE OF PROCEDURE: 11/12/20 PREOP DIAGNOSIS: Paroxysmal atrial fibrillation POSTOP DIAGNOSIS: Paroxysmal atrial fibrillation PROCEDURE DETAILS: The patient is a 54 male with history of paroxysmal atrial fibrillation requiring long-term surveillance. Therefore implantable loop recorder was discussed and agreed with the patient. Informed consent was taken. All risks and complications were discussed at length. The patient was draped and prepped in the usual sterile fashion. Local anesthesia was lidocaine, which was given in the substernal area close to the 4th intercostal space. Loop monitor [employer] with serial number [id number] was implanted according to the protocol. Steri- Strips were placed at the end of the procedure. There were no complications and the patient tolerated the procedure well. ANESTHESIA: Local anesthesia with lidocaine. COMPLICATIONS: None CONTRAST/FLUOROSCOPY: None CONCLUSION: Successful implantation of loop monitor with no complication FINAL DIAGNOSIS: Paroxysmal atrial fibrillation Palpitation Hypertension Hyperlipidemia BESSY HERNANDEZ MD Nov 12, 2020 10:57
== END 2020-11-12 11:30 | disposition home or self-care (01) ==
LOC: CATH 10:30
PROVIDERS: ATTEND Internal Medicine Cardiovascular Disease
DX: I48.0 Paroxysmal atrial fibrillation (principal); I10 Essential (primary) hypertension; E78.2 Mixed hyperlipidemia; H53.47 Heteronymous bilateral field defects; J44.9 Chronic obstructive pulmonary disease, unspecified; E66.9 Obesity, unspecified; I63.50 Cerebral infarction due to unspecified occlusion or stenosis of unspecified cerebral artery; R79.89 Other specified abnormal findings of blood chemistry; Z79.01 Long term (current) use of anticoagulants; Z87.891 Personal history of nicotine dependence; Z87.74 Personal history of (corrected) congenital malformations of heart and circulatory system; Z68.35 Body mass index [BMI] 35.0-35.9, adult
CPT/HCPCS: 33285; C1764

== ENCOUNTER 2021-01-28 13:24 | Inpatient (IN) | payer BC ==
[~2021-01-28] VITALS: Ht 170.1 cm; Wt 103.0 kg
[~2021-01-28 13:24] MED LIST changes: -LIDOCAINE 1% INJ 20 ML 20 ML VIAL ONE
[2021-01-28] MEDS ORDERED: NS IV 1000 ML 1,000 ML IV SCH (13:45)
[2021-01-28] MEDS ORDERED: ONDANSETRON 4 MG/2 ML (SDV) Z0FRAN IV ONE (13:45)
[2021-01-28 13:57] LABS: INR 1.3 (0.8-1.4); PROTHROMBIN TIME PATIENT 16.3 SEC (12.2-14.7)
--- NOTE | 2021-01-28 13:58 | ED General ---
General Chief Complaint: Dizziness/Syncope Stated Complaint: SYNCOPE, HEAD INJ Nursing Triage Note: Patient presents to the ED with c/o syncopy, diarrhea, nausea, and fever. He reports intermittent fever and diarrhea since 01/23/21. He states that today he started dry heaving and had a syncopal episode in which he hit his head and the door frame and the floor. Source of Information: Patient, Family History of Present Illness Date Seen by Provider: Jan 28, 2021 Time Seen by Provider: 13:25 Initial Comments 55-year-old male presenting with complaints of feeling sick since last week. He has been having intermittent fevers up to 101 Fahrenheit. He has had nausea with dry heaves as well as watery diarrhea. He has not been able to eat or drink very well. He reports today he went to go to the bathroom and hit the door frame with his head. Then he fell back and hit the floor. He was so weak he could not get up off the floor and states he passed out 2 more times. He has diffuse abdominal cramping. He denies having any blood in his stool or urine. He does take medication for blood pressure and heart rate as he has chronic atrial fibrillation. He also has had previous stroke and takes Eliquis both to stroke as well as the atrial fibrillation. He has had several ill contacts at work. Timing/Duration: 5-6 Days Severity: Severe Associated Systoms: No Chest Pain, No Cough, No Diaphoresis; Fever/Chills, Headaches, Loss of Appetite, Malaise, Nausea/Vomiting (dry heaves); No Seizure, No Shortness of Air; Syncope, Weakness Allergies and Home Medications Allergies Coded Allergies: Penicillins (Verified Allergy, Unknown, 11/24/16) enalapril (Verified Allergy, Unknown, 11/24/16) Patient Home Medication List Home Medication List Reviewed: Yes Apixaban (Eliquis) 5 Mg Tablet, 5 MG PO BID, (Reported) Entered as Reported by: ROBB URIARTE on 11/24/16734 Last Action: Last Taken Edited Clonazepam (Clonazepam) 0.25 Mg Tab.rapdis, 0.25 MG PO BID, (Reported) Entered as Reported by: ROBB URIARTE on 11/24/16734 Diltiazem HCl (Diltiazem 24Hr Cd) 240 Mg Cap.er.24h, 240 MG PO DAILY Prescribed by: BESSY HERNANDEZ on 04/01/17 1001 Last Action: Last Taken Edited Duloxetine HCl (Duloxetine HCl) 60 Mg Capsule.dr, 60 MG PO DAILY, (Reported) Entered as Reported by: ROBB URIARTE on 11/24/16734 Last Action: Last Taken Edited Losartan Potassium (Losartan Potassium) 100 Mg Tablet, 100 MG PO DAILY, (Reported) Entered as Reported by: ALBINA SPIVEY on 01/28/211840 Last Action: New Order Metoprolol Succinate (Metoprolol Succinate) 50 Mg Tab.er.24h, 50 MG PO HS, (Reported) Entered as Reported by: RADHIKA BROOKE on 03/28/171554 Last Action: Last Taken Edited Multivit-Min/FA/Lycopen/Lutein (Centrum Silver Men Tablet) 1 Each Tablet, 1 TAB PO 1200, (Reported) Entered as Reported by: ROBB URIARTE on 11/24/16734 Mason-3/Dha/Epa/Fish Oil (Fish Oil 1,000 mg Softgel) 1 Each Capsule, 1,000 MG PO TID, (Reported) Entered as Reported by: RADHIKA RBOOKE on 03/28/171554 Last Action: Last Taken Edited Sotalol HCl (Sotalol) 120 Mg Tablet, 120 MG PO BID Prescribed by: BESSY HERNANDEZ on 04/01/17 100 [Multaq] 400 , 400 MG PO BID, (Reported) Entered as Reported by: ALBINA SPIVEY on 01/28/211840 Last Action: New Order Review of Systems Review of Systems Constitutional: chills, dizziness, fever, malaise, weakness EENTM: no symptoms reported Respiratory: no symptoms reported Cardiovascular: syncope Gastrointestinal: abdominal pain, diarrhea, nausea, vomiting (dry heaves) Genitourinary: decreased output; No dysuria Musculoskeletal: no symptoms reported Skin: no symptoms reported Psychiatric/Neurological: Headache, Weakness Hematologic/Lymphatic: Easy Bleeding, Easy Bruising (taking eliquis) Past Qjhqbie-Seirif-Bbxiev Hx Patient Social History Tobacco Use?: No Use of E-Cig and/or Vaping dev: No Substance use?: No Alcohol Use?: No Pt feels they are or have been: No Immunizations Up To Date First/Initial COVID19 Vaccinat: Not currently vaccinated Seasonal Allergies Seasonal Allergies: No Past Medical History Surgery/Hospitalization HX: Atrial fibrillation; HTN Surgeries: Yes (Cardiac Ablation) Respiratory: No Sleep Apnea Currently Using CPAP: Yes Currently Using BIPAP: No Cardiac: Yes Atrial Fibrillation, Irregular Heartbeat, Palpitations Neurological: No Genitourinary: No Gastrointestinal: No Gastroesophageal Reflux, Hiatal Hernia Musculoskeletal: No Endocrine: No HEENT: No Loss of Vision: Denies Cancer: No Psychosocial: No Anxiety Integumentary: No Blood Disorders: No Adverse Reaction/Blood Tranf: No Family Medical History No Pertinent Family Hx Physical Exam Vital Signs Vital Signs - First Documented 01/28/21 01/28/21 13:30 17:46 Temp 36.6 Pulse 80 Resp 15 B/P (MAP) 110/49 (69) Pulse Ox 93 O2 Delivery Room Air O2 Flow Rate 2.00 Capillary Refill : Less Than 3 Seconds Height, Weight, BMI Height: 5'7.00" Weight: 225lbs. 3.2oz. 102.538410lv; 35.00 BMI Method:Stated General Appearance: Obese, Other (laying on bed with eyes closed and barely speaking above a whisper) HEENT: PERRL/EOMI; No Moist Mucous Membranes (dry mucous membranes) Neck: Full Range of Motion, Normal Inspection, Non Tender, Supple Respiratory: Chest Non Tender, Lungs Clear, Normal Breath Sounds Cardiovascular: Regular Rate, Rhythm, Normal Peripheral Pulses Gastrointestinal: No Pulsatile Mass, Soft, Abnormal Bowel Sounds (hypoactive); No Distended, No Guarding, No Rebound; Tenderness (mild diffuse) Rectal: Deferred Extremity: Normal Capillary Refill, Normal Inspection, No Pedal Edema Neurologic/Psychiatric: Alert, Oriented x3 Skin: Normal Color, Warm/Dry Focused Exam Lactate Level 01/28/21 13:40: Lactic Acid Level 1.78 Lactic Acid Level Laboratory Tests Test 01/28/21 13:40 Lactic Acid Level 1.78 MMOL/L (0.50-2.00) Progress/Results/Core Measures Suspected Sepsis SIRS Temperature: Pulse: 80 Respiratory Rate: 15 Laboratory Tests 01/28/21 13:35: White Blood Count 5.8 Blood Pressure 110 /49 Mean: 69 01/28/21 13:40: Lactic Acid Level 1.78 Laboratory Tests 01/28/21 13:35: Creatinine 1.83H, INR Comment 1.3, Platelet Count 135, Total Bilirubin 0.8 Results/Orders Lab Results Laboratory Tests Test 01/28/21 13:35 01/28/21 13:40 01/28/21 13:45 01/28/21 17:10 Range/Units White Blood Count 5.8 4.3-11.0 10^3/uL Red Blood Count 5.00 4.30-5.52 10^6/uL Hemoglobin 15.1 13.3-17.7 g/dL Hematocrit 43 40-54 % Mean Corpuscular Volume 86 80-99 fL Mean Corpuscular Hemoglobin 30 25-34 pg Mean Corpuscular Hemoglobin Concent 35 32-36 g/dL Red Cell Distribution Width 13.4 10.0-14.5 % Platelet Count 135 130-400 10^3/uL Mean Platelet Volume 11.1 9.0-12.2 fL Neutrophils (%) (Auto) 75 42-75 % Lymphocytes (%) (Auto) 18 12-44 % Monocytes (%) (Auto) 7 0-12 % Eosinophils (%) (Auto) 0 0-10 % Basophils (%) (Auto) 0 0-10 % Neutrophils # (Auto) 4.3 1.8-7.8 X 10^3 Lymphocytes # (Auto) 1.1 1.0-4.0 X 10^3 Monocytes # (Auto) 0.4 0.0-1.0 X 10^3 Eosinophils # (Auto) 0.0 0.0-0.3 10^3/uL Basophils # (Auto) 0.0 0.0-0.1 10^3/uL Prothrombin Time 16.3 H 12.2-14.7 SEC INR Comment 1.3 0.8-1.4 Activated Partial Thromboplast Time 65 H 24-35 SEC Sodium Level 137 135-145 MMOL/L Potassium Level 3.4 L 3.6-5.0 MMOL/L Chloride Level 97 L 98-107 MMOL/L Carbon Dioxide Level 24 21-32 MMOL/L Anion Gap 16 H 5-14 MMOL/L Blood Urea Nitrogen 14 7-18 MG/DL Creatinine 1.83 H 0.60-1.30 MG/DL Estimat Glomerular Filtration Rate 38 BUN/Creatinine Ratio 8 Glucose Level 122 H 70-105 MG/DL Calcium Level 9.4 8.5-10.1 MG/DL Corrected Calcium 9.2 8.5-10.1 MG/DL Magnesium Level 2.0 1.6-2.4 MG/DL Total Bilirubin 0.8 0.1-1.0 MG/DL Aspartate Amino Transf (AST/SGOT) 50 H 5-34 U/L Alanine Aminotransferase (ALT/SGPT) 32 0-55 U/L Alkaline Phosphatase 106 40-136 U/L Troponin I < 0.30 <0.30 NG/ML C-Reactive Protein 1.15 H <0.50 MG/DL Pro-B-Type Natriuretic Peptide 108.2 H <75.0 PG/ML Total Protein 8.3 H 6.4-8.2 GM/DL Albumin 4.3 3.2-4.5 GM/DL Lactic Acid Level 1.78 0.50-2.00 MMOL/L Influenza Type A Antigen NEGATIVE NEGATIVE Influenza Type B Antigen NEGATIVE NEGATIVE SARS-CoV-2 RNA (RT-PCR) Detected H Not Detecte Blood Gas Puncture Site RT RADIAL Blood Gas Patient Temperature 36.6 Arterial Blood pH 7.44 H 7.37-7.43 Arterial Blood Partial Pressure CO2 36 35-45 MMHG Arterial Blood Partial Pressure O2 66 L 79-93 MMHG Arterial Blood HCO3 25 23-27 MMOL/L Arterial Blood Total CO2 25.6 21.0-31.0 MMOL/L Arterial Blood Oxygen Saturation 93 L 94-100 % Arterial Blood Base Excess 0.6 -2.5-2.5 MMOL/L Baudilio Test OK Blood Gas Ventilator Setting NO Blood Gas Inspired Oxygen ROOM AIR My Orders Orders - RAEANN SMITH MD Monitor-Rhythm Ecg Trace Only (01/28/21 13:38) Ed Iv/Invasive Line Start (01/28/21 13:38) Cbc With Automated Diff (01/28/21 13:38) Comprehensive Metabolic Panel (01/28/21 13:38) Crp Fs (01/28/21 13:38) Troponin I Fs (01/28/21 13:38) Protime With Inr (01/28/21 13:38) Partial Thromboplastin Time (01/28/21 13:38) Ekg Tracing (01/28/21 13:38) Ns Iv 1000 Ml (Sodium Chloride 0.9%) (01/28/21 13:45) Ondansetron Injection (Zofran Injectio (01/28/21 13:45) Ct Head Wo (01/28/21 13:38) Magnesium (01/28/21 13:38) Influenza A & B Antigens (01/28/21 13:38) Covid 19 Inhouse Test (01/28/21 13:38) Blood Culture (01/28/21 13:38) Probnp Fs (01/28/21 13:38) Lactic Acid Analyzer (01/28/21 13:38) Iohexol Injection (Omnipaque 350 Mg/Ml 1 (01/28/21 14:15) Received Contrast (Hold Metformin- Contr (01/28/21 14:15) Sodium Chloride Flush (Catheter Flush Sy (01/28/21 14:15) Ns (Ivpb) (Sodium Chloride 0.9% Ivpb Bag (01/28/21 14:15) Ct Abdomen/Pelvis Wo (01/28/21 13:38) Fentanyl Inj (Sublimaze Injection) (01/28/21 15:08) Ns Iv 1000 Ml (Sodium Chloride 0.9%) (01/28/21 15:15) Ed Admission (Communication) (01/28/21 16:06) Arterial Blood Gas (01/28/21 17:04) O2 (01/28/21 17:04) Chest 1 View Ap/Pa Only (01/28/21 17:05) Medications Given in ED Current Medications Medications Dose Ordered Sig/Sarai Route Start Time Stop Time Status Last Admin Dose Admin Ondansetron HCl 4 mg ONCE ONCE IV 01/28/21 13:45 01/28/21 13:46 DC 01/28/21 13:48 4 MG Vital Signs/I&O 01/28/21 01/28/21 13:30 17:46 Temp 36.6 36.6 Pulse 80 80 Resp 15 17 B/P (MAP) 110/49 (69) 138/67 Pulse Ox 93 94 O2 Delivery Room Air Nasal Cannula O2 Flow Rate 2.00 Capillary Refill : Less Than 3 Seconds Blood Pressure Mean: 69 Progress Note #1: Progress Note Obtain basic labs as well as electrocardiogram and cardiac enzymes. CT scan of his head since he had a syncopal episode. CT scan of the abdomen pelvis since he was having diarrhea and dry heaves with syncope and fever. Obtain blood cult ures with lactic acid. Influenza and Covid swabs were also ordered to evaluate with his fever and GI symptoms. Give IV fluids for hydration, Zofran for nausea and dry heaves. Progress Note #2: Progress Note Labs do not show an elevated white blood cell count. His hemoglobin appears stable at 15.1. His chemistry panel does show elevated creatinine to 1.83. His lactic acid is normal. K was slightly low at 3.4. On return from radiology he was complaining of pain to the posterior right CVA area and lower ribs. Will try a dose of 50 mcg Fentanyl to see if that helps while awaiting his other tests and the CT scan. His Influenza test is negative. Progress Note #3: Progress Note CT scan shows fluid-filled bowel but no signs of obstruction or blockage. There is no fluid collection for an abscess or perforation. Cardiac enzymes are negative for acute coronary syndrome as his troponin is negative and he does not have a significantly elevated proBNP. Discussed with the patient and family member that I felt he needed to be admitted to the hospital for his syncopal episode general weakness and elevated creatinine. The family member was very concerned about his occasional PVCs showing up on the monitor. I did advised he r that with his movement in the bed that can also affect how the monitor was picking up his heart rate. Overall he has been in a sinus rhythm on our monitor. After some discussion between family and patient they agreed it would be best to stay so that he could receive additional fluids and supportive care to help recover from the presumed viral illness causing his diarrhea and de hydration. The Covid swab is still pending at this point so he is patient under investigation for that. As he reports following with Dr. Beckett now instead of Dr. Alexander will contact Dr. Isbell who is covering for the [facility] service about admission. Progress Note #4: Time: 16:03 Progress Note Discussed with Dr. Isbell for the [facility] service since patient follows with Dr. Beckett. She accepted the patient for an observation stay to continue with hydration for his acute kidney injury and monitoring for his syncopal episode. Progress Note #5: Time: 17:05 Progress Note Patient was having a good Pleth wave on pulse oximetry but was showing oxygen saturation 88-90% on room air. This is a decrease from when he arrived and was 94% or better. His Covid test came back Positive now as well. Will add on ABG, CXR and supplemental O2. Will also call to update Dr. Isbell so that she is aware. ABG shows pH 7.44, pCO2 36, pO2 of 66 for an O2 sat of 93 % on room air. His Chest Xray shows diffuse bilateral patchy infiltrates concerning for Covid or developing pneumonia. On supplemental O2 of 2 Lpm by n.c. he raised his O2 sats up to 94% or higher. 1750 I was able to reach Dr. Isbell to update her about the patient being Covid + and having to be placed on O2 whereas he was not requiring Oxygen when I first spoke with her about admit. I did give him a dose of Fentanyl for pain in his back and posterior rib area on right side but that should have worn off by the time he was showing desats on pulse oximetry. This may be developing findings from COVID infection. ECG Initial ECG Impression Date: Jan 28, 2021 Initial ECG Impression Time: 13:41 Initial ECG Rate: 79 Initial ECG Rhythm: Normal Sinus Initial ECG Comparisson: Unchanged Comment Normal sinus rhythm with a heart rate of 79 bpm. SC interval 182 ms. QT interval 456 ms with a prolonged QTc interval of 523 ms. There is no acute ST elevation. Appears similar to prior tracings in the system. Diagnostic Imaging Diagonstic Imaging: CT Plain Films/CT/US/NM/MRI: head Comments [facility]. [place], [place] NAME: NARAYAN SY [facility] REC#: [id number] PT STATUS: REG ER : 1965 PHYSICIAN: RAEANN SMITH MD ADMIT DATE: 01/28/21/ER FS Signed Date of Exam:01/28/21 CT HEAD WO PROCEDURE: CT head without contrast. TECHNIQUE: Multiple contiguous axial images were obtained through the brain without the use of intravenous contrast. Auto Exposure Controls were utilized during the CT exam to meet ALARA standards for radiation dose reduction. INDICATION: Head injury with syncope and anticoagulated state. CT HEAD: CT images of the head were obtained. FINDINGS: Ventricles and sulci are within normal limits for size. There is no intracranial hemorrhage identified. There is no abnormal mass effect or shift of midline structures. Calvarium is intact. There is probable 1 cm meningioma along the right frontal surface. IMPRESSION: Unremarkable CT of the head. Dictated by: Dictated on workstation # [id number] Dict: 01/28/21 1444 Trans: 01/28/21 1638 CV [id number] Interpreted by: KRYSTIAN MCKOY MD Electronically signed by: KRYSTIAN MCKOY MD 01/28/211637 Reviewed: Reviewed by Me Diagonstic Imaging: CT Plain Films/CT/US/NM/MRI: abdomen, pelvis Comments [facility] [place] [place] NAME: NARAYAN SY [facility] REC#: [id number] PT STATUS: REG ER : 1965 PHYSICIAN: RAEANN SMITH MD ADMIT DATE: 01/28/21/ER FS Signed Date of Exam:01/28/21 CT ABDOMEN/PELVIS WO PROCEDURE: CT abdomen and pelvis without contrast. TECHNIQUE: Multiple contiguous axial images were obtained through the abdomen and pelvis without the use of intravenous contrast. Auto Exposure Controls were utilized during the CT exam to meet ALARA standards for radiation dose reduction. INDICATION: Nausea, emesis with diarrhea and fever. Intravenous contrast was not utilized given patient's renal insufficiency. There is mildly nodular surface contour to the liver however no focal hepatic lesions identified. Gallbladder, pancreas, adrenal glands and spleen are unremarkable. Small diverticulum is likely present along the lesser curvature of the stomach. There is no evidence of renal calculus. No hydronephrosis is seen. There is fluid distention of the colon indicating diarrheal state. Urinary bladder is unopacified and largely collapsed. Note is made of fatty herniation into the inguinal regions bilaterally. There is no evidence of bowel hernia or obstruction. IMPRESSION: Fluid distention of colon without obstruction identified. Overall, no acute abnormalities identified although the liver demonstrates mildly nodular surface contour. Dictated by: Dictated on workstation # [id number] Dict: 01/28/21 1446 Trans: 01/28/217 CV [id number] Interpreted by: KRYSTIAN MCKOY MD Electronically signed by: KRYSTIAN MCKOY MD 01/28/211636 Reviewed: Reviewed by Fl Diagonstic Imaging: Xray Plain Films/CT/US/NM/MRI: chest [facility] [place] [place] NAME: NARAYAN SY MED REC#: [id number] PT STATUS: REG ER : 1965 PHYSICIAN: RAEANN SMITH MD ADMIT DATE: 01/28/21/ER FS Draft Date of Exam:01/28/21 CHEST 1 VIEW AP/PA ONLY INDICATION: Hypoxia and COVID infection. Portable AP view of the chest is obtained with comparison made to study of 11/24/2016. FINDINGS: There is continued cardiomegaly. There has been mild increase in mixed interstitial and alveolar densities in both lungs. A loop recorder is seen in the left chest wall. No pneumothorax or pleural fluid is seen. IMPRESSION: Developing interstitial and ground-glass densities in both lungs, which could be due to edema or pneumonitis. Dictated on workstation # [id number] Dict: 01/28/21 1717 Trans: 01/28/21 1721 [id number] Interpreted by: KRYSTIAN MCKOY MD Electronically signed by: Reviewed: Reviewed by Me Departure Communication (Admissions) Time/Spoke to Admitting Phy: 16:[address] Isbell for the [facility] service since the patient follows with Dr. Beckett. He is Covid + and he is dehydrated with acute kidney injury. Will admit for hydration and telemetry monitoring. Since he had syncope telemetry monitoring. Impression Primary Impression: Diarrhea due to severe acute respiratory syndrome coronavirus 2 (SARS-CoV-2) infection Additional Impressions: Syncope Qualified Codes: R55 - Syncope and collapse Nausea vomiting and diarrhea Dehydration Acute kidney injury Disposition: 30 STILL A PATIENT Condition: Stable Admissions Decision to Admit Reason: Admit from ER (General) Decision to Admit/Date: Jan 28, 2021 Time/Decision to Admit Time: 16:03 Departure-Patient Inst. Referrals: EDNA ALEXANDER DO (PCP/Family) Primary Care Physician RAEANN SMITH MD Jan 28, 2021 13:58
[2021-01-28 14:13] LABS: WHITE BLOOD COUNT 5.8 10^3/uL (4.3-11.0)
[2021-01-28 14:14] LABS: BASOPHILS % (AUTO) 0 % (0-10); EOSINOPHILS % (AUTO) 0 % (0-10); HEMATOCRIT 43 % (40-54); HEMOGLOBIN 15.1 g/dL (13.3-17.7); LYMPHOCYTES # (AUTO) 1.1 X 10^3 (1.0-4.0); LYMPHOCYTES % (AUTO) 18 % (12-44); MEAN CORPUSCULAR HEMOGLOBIN 30 pg (25-34); MEAN CORPUSCULAR HGB CONC 35 g/dL (32-36); MEAN CORPUSCULAR VOLUME 86 fL (80-99); MEAN PLATELET VOLUME 11.1 fL (9.0-12.2); MONOCYTES # (AUTO) 0.4 X 10^3 (0.0-1.0); MONOCYTES % (AUTO) 7 % (0-12); NEUTROPHILS # (AUTO) 4.3 X 10^3 (1.8-7.8); NEUTROPHILS % (AUTO) 75 % (42-75); PLATELET COUNT 135 10^3/uL (130-400)
[2021-01-28] MEDS ORDERED: HOLD METFORMIN - RECEIVED CONTRAST 20 ML VIAL IV SCH (14:15)
[2021-01-28] MEDS ORDERED: CATHETER FLUSH 10 ML SYR IV PRN (14:15)
[2021-01-28] MEDS ORDERED: IOHEXOL 350 MG/ML 100 ML (OMNIPAQUE 350) VIAL IV ONE (14:15)
[2021-01-28] MEDS ORDERED: NS 100 ML (IVPB) BAG IV ONE (14:15)
[2021-01-28 14:21] LABS: BUN/CREATININE RATIO 8; CALCIUM 9.4 MG/DL (8.5-10.1); CARBON DIOXIDE 24 MMOL/L (21-32); CHLORIDE 97 MMOL/L (98-107); CREATININE SERUM 1.83 MG/DL (0.60-1.30); GFR ESTIMATED 38; GLUCOSE 122 MG/DL (70-105); POTASSIUM 3.4 MMOL/L (3.6-5.0); SODIUM 137 MMOL/L (135-145)
[2021-01-28 14:22] LABS: ALANINE AMINOTRANSFERASE 32 U/L (0-55); ALBUMIN 4.3 GM/DL (3.2-4.5); ALKALINE PHOSPHATASE 106 U/L (40-136); BILIRUBIN,TOTAL 0.8 MG/DL (0.1-1.0); TOTAL PROTEIN 8.3 GM/DL (6.4-8.2)
--- NOTE | 2021-01-28 14:50 | Diagnostic Imaging Report ---
PROCEDURE: CT head without contrast. TECHNIQUE: Multiple contiguous axial images were obtained through the brain without the use of intravenous contrast. Auto Exposure Controls were utilized during the CT exam to meet ALARA standards for radiation dose reduction. INDICATION: Head injury with syncope and anticoagulated state. CT HEAD: CT images of the head were obtained. FINDINGS: Ventricles and sulci are within normal limits for size. There is no intracranial hemorrhage identified. There is no abnormal mass effect or shift of midline structures. Calvarium is intact. There is probable 1 cm meningioma along the right frontal surface. IMPRESSION: Unremarkable CT of the head. Dictated by: Dictated on workstation # [id number]
--- NOTE | 2021-01-28 14:54 | Diagnostic Imaging Report ---
PROCEDURE: CT abdomen and pelvis without contrast. TECHNIQUE: Multiple contiguous axial images were obtained through the abdomen and pelvis without the use of intravenous contrast. Auto Exposure Controls were utilized during the CT exam to meet ALARA standards for radiation dose reduction. INDICATION: Nausea, emesis with diarrhea and fever. Intravenous contrast was not utilized given patient's renal insufficiency. There is mildly nodular surface contour to the liver however no focal hepatic lesions identified. Gallbladder, pancreas, adrenal glands and spleen are unremarkable. Small diverticulum is likely present along the lesser curvature of the stomach. There is no evidence of renal calculus. No hydronephrosis is seen. There is fluid distention of the colon indicating diarrheal state. Urinary bladder is unopacified and largely collapsed. Note is made of fatty herniation into the inguinal regions bilaterally. There is no evidence of bowel hernia or obstruction. IMPRESSION: Fluid distention of colon without obstruction identified. Overall, no acute abnormalities identified although the liver demonstrates mildly nodular surface contour. Dictated by: Dictated on workstation # [id number]
[2021-01-28] MEDS ORDERED: fentaNYL INJ 100 MCG/2 ML AMP IVP STA (15:08)
[2021-01-28] MEDS: NS IV 1000 ML 1,000 ML IV SCH ×3 (15:22→20:24)
[2021-01-28 17:19] LABS: ABG BASE EXCESS 0.6 MMOL/L (-2.5-2.5); ABG OXYGEN SATURATION 93 % (94-100); ABG PCO2 36 MMHG (35-45); ABG PH 7.44 (7.37-7.43); ABG PO2 66 MMHG (79-93); ABG TCO2 25.6 MMOL/L (21.0-31.0); ALLENS TEST OK; INSPIRED O2 ROOM AIR; VENTILATOR NO
[2021-01-28 17:20] LABS: PATIENT TEMP 36.6
--- NOTE | 2021-01-28 17:21 | Diagnostic Imaging Report ---
INDICATION: Hypoxia and COVID infection. Portable AP view of the chest is obtained with comparison made to study of 11/24/2016. FINDINGS: There is continued cardiomegaly. There has been mild increase in mixed interstitial and alveolar densities in both lungs. A loop recorder is seen in the left chest wall. No pneumothorax or pleural fluid is seen. IMPRESSION: Developing interstitial and ground-glass densities in both lungs, which could be due to edema or pneumonitis. Dictated by: Dictated on workstation # [id number]
[2021-01-28] MEDS ORDERED: PATIENT MAY USE OWN MEDS, ALL PO SCH (17:45)
[2021-01-28] MEDS ORDERED: ONDANSETRON 4 MG/5 ML ORAL SOLN (ZOFRAN) 5 ML PO PRN (17:45)
[2021-01-28] MEDS ORDERED: MULTAQ PO (18:41)
[2021-01-28] MEDS ORDERED: LOSA100T57 PO (18:41)
[2021-01-28 18:49] VITALS: BP 118/73
[2021-01-28 20:55] VITALS: BP 135/82
[2021-01-28 23:30] VITALS: BP 138/73
[2021-01-29] MEDS: NS IV 1000 ML 1,000 ML IV SCH ×4 (03:02→17:55)
[2021-01-29 03:05] VITALS: BP 126/64
[2021-01-29 06:01] LABS: HEMATOCRIT 36 % (40-54); HEMOGLOBIN 12.2 g/dL (13.3-17.7); MEAN CORPUSCULAR HEMOGLOBIN 30 pg (25-34); MEAN CORPUSCULAR HGB CONC 34 g/dL (32-36); MEAN CORPUSCULAR VOLUME 88 fL (80-99); PLATELET COUNT 92 10^3/uL (130-400); WHITE BLOOD COUNT 3.1 10^3/uL (4.3-11.0)
[2021-01-29 06:18] LABS: POTASSIUM 3.1 MMOL/L (3.6-5.0)
[2021-01-29 06:19] LABS: CALCIUM 7.9 MG/DL (8.5-10.1)
[2021-01-29 06:23] LABS: CREATININE SERUM 1.03 MG/DL (0.60-1.30)
[2021-01-29 08:08] VITALS: BP 134/68
[2021-01-29] MEDS ORDERED: KCL 20 MEQ TAB (K-DUR) PO NR (08:45)
[2021-01-29] MEDS: APIXABAN 5 MG (ELIQUIS) TABLET PO SCH ×2 (10:02→20:20)
[2021-01-29] MEDS ORDERED: KRIL1CAP18 PO (10:08)
[2021-01-29] MEDS ORDERED: ZINC50TA11 PO (10:08)
[2021-01-29] MEDS ORDERED: DRON400T6 PO (10:08)
[2021-01-29] MEDS ORDERED: CHOL200059 PO (10:08)
[2021-01-29] MEDS ORDERED: DILT240C91 PO (10:08)
--- NOTE | 2021-01-29 11:05 | History & Physical ---
HPI History of Present Illness: Feverish on and off for a week, yesterday started being kind of out of it and at one point got up to go to the bathroom and fell due to dizziness, weakness, took a while to be able to get up. Source: patient Date seen by provider: Jan 29, 2021 Time Seen by Provider: 11:01 Attending Physician Beena Isbell MD PCP Chalino Beckett MD Consult Date of Admission Jan 28, 2021 at 18:30 Home Medications Home Medications Reviewed patient Home Medication Reconciliation performed by pharmacy medication reconciliations biomass technician and/or nursing. Patients Allergies have been reviewed. Allergies Coded Allergies: Penicillins (Verified Allergy, Unknown, 11/24/16) enalapril (Verified Allergy, Unknown, 11/24/16) KZS-Hytuca-Eojwyy Hx Patient Social History 2nd Hand Smoke Exposure: No Recent Hopitalizations: No Alcohol Use?: No Have you traveled recently?: No Immunizations Up To Date Influenza Vaccine Up-to-Date: No; Not Current First/Initial COVID19 Vaccinat: Not currently vaccinated Past Medical History PMHx: A fib HTN SurgHx: Atrial septal repair 1998 Hiatal hernia repair Umbilical hernia repair Cardioversion multiple times Ablation Family Medical History Significant Family History: No Pertinent Family Hx Review of Systems ([facility]) Constitutional: fever, malaise, weakness EENTM: nose congestion (mild in the morning); No throat pain Respiratory: cough (x3d); No short of breath Cardiovascular: No chest pain Gastrointestinal: No abdominal pain; diarrhea; No nausea, No vomiting Genitourinary: No dysuria Musculoskeletal: No joint pain, No muscle pain Skin: No rash Psychiatric/Neurological: Headache Reviewed Test Results Reviewed Test Results Lab Laboratory Tests Test 01/28/21 13:35 01/28/21 13:40 01/28/21 13:45 01/28/21 17:10 Range/Units White Blood Count 5.8 4.3-11.0 10^3/uL Red Blood Count 5.00 4.30-5.52 10^6/uL Hemoglobin 15.1 13.3-17.7 g/dL Hematocrit 43 40-54 % Mean Corpuscular Volume 86 80-99 fL Mean Corpuscular Hemoglobin 30 25-34 pg Mean Corpuscular Hemoglobin Concent 35 32-36 g/dL Red Cell Distribution Width 13.4 10.0-14.5 % Platelet Count 135 130-400 10^3/uL Mean Platelet Volume 11.1 9.0-12.2 fL Neutrophils (%) (Auto) 75 42-75 % Lymphocytes (%) (Auto) 18 12-44 % Monocytes (%) (Auto) 7 0-12 % Eosinophils (%) (Auto) 0 0-10 % Basophils (%) (Auto) 0 0-10 % Neutrophils # (Auto) 4.3 1.8-7.8 X 10^3 Lymphocytes # (Auto) 1.1 1.0-4.0 X 10^3 Monocytes # (Auto) 0.4 0.0-1.0 X 10^3 Eosinophils # (Auto) 0.0 0.0-0.3 10^3/uL Basophils # (Auto) 0.0 0.0-0.1 10^3/uL Prothrombin Time 16.3 H 12.2-14.7 SEC INR Comment 1.3 0.8-1.4 Activated Partial Thromboplast Time 65 H 24-35 SEC Sodium Level 137 135-145 MMOL/L Potassium Level 3.4 L 3.6-5.0 MMOL/L Chloride Level 97 L 98-107 MMOL/L Carbon Dioxide Level 24 21-32 MMOL/L Anion Gap 16 H 5-14 MMOL/L Blood Urea Nitrogen 14 7-18 MG/DL Creatinine 1.83 H 0.60-1.30 MG/DL Estimat Glomerular Filtration Rate 38 BUN/Creatinine Ratio 8 Glucose Level 122 H 70-105 MG/DL Calcium Level 9.4 8.5-10.1 MG/DL Corrected Calcium 9.2 8.5-10.1 MG/DL Magnesium Level 2.0 1.6-2.4 MG/DL Total Bilirubin 0.8 0.1-1.0 MG/DL Aspartate Amino Transf (AST/SGOT) 50 H 5-34 U/L Alanine Aminotransferase (ALT/SGPT) 32 0-55 U/L Alkaline Phosphatase 106 40-136 U/L Troponin I < 0.30 <0.30 NG/ML C-Reactive Protein 1.15 H <0.50 MG/DL Pro-B-Type Natriuretic Peptide 108.2 H <75.0 PG/ML Total Protein 8.3 H 6.4-8.2 GM/DL Albumin 4.3 3.2-4.5 GM/DL Lactic Acid Level 1.78 0.50-2.00 MMOL/L Influenza Type A Antigen NEGATIVE NEGATIVE Influenza Type B Antigen NEGATIVE NEGATIVE SARS-CoV-2 RNA (RT-PCR) Detected H Not Detecte Blood Gas Puncture Site RT RADIAL Blood Gas Patient Temperature 36.6 Arterial Blood pH 7.44 H 7.37-7.43 Arterial Blood Partial Pressure CO2 36 35-45 MMHG Arterial Blood Partial Pressure O2 66 L 79-93 MMHG Arterial Blood HCO3 25 23-27 MMOL/L Arterial Blood Total CO2 25.6 21.0-31.0 MMOL/L Arterial Blood Oxygen Saturation 93 L 94-100 % Arterial Blood Base Excess 0.6 -2.5-2.5 MMOL/L Baudilio Test OK Blood Gas Ventilator Setting NO Blood Gas Inspired Oxygen ROOM AIR Test 01/29/21 05:20 Range/Units White Blood Count 3.1 L 4.3-11.0 10^3/uL Red Blood Count 4.05 L 4.30-5.52 10^6/uL Hemoglobin 12.2 L 13.3-17.7 g/dL Hematocrit 36 L 40-54 % Mean Corpuscular Volume 88 80-99 fL Mean Corpuscular Hemoglobin 30 25-34 pg Mean Corpuscular Hemoglobin Concent 34 32-36 g/dL Red Cell Distribution Width 13.2 10.0-14.5 % Platelet Count 92 L 130-400 10^3/uL Mean Platelet Volume 11.0 9.0-12.2 fL Sodium Level 137 135-145 MMOL/L Potassium Level 3.1 L 3.6-5.0 MMOL/L Chloride Level 104 98-107 MMOL/L Carbon Dioxide Level 23 21-32 MMOL/L Anion Gap 10 5-14 MMOL/L Blood Urea Nitrogen 11 7-18 MG/DL Creatinine 1.03 0.60-1.30 MG/DL Estimat Glomerular Filtration Rate 74 BUN/Creatinine Ratio 11 Glucose Level 100 70-105 MG/DL Calcium Level 7.9 L 8.5-10.1 MG/DL Radiology 01/28/21 CT abd/pelvis: IMPRESSION: Fluid distention of colon without obstruction identified. Overall, no acute abnormalities identified although the liver demonstrates mildly nodular surface contour. 01/28/21 CT head: no acute findings 01/28/21 CXR: IMPRESSION: Developing interstitial and ground-glass densities in both lungs, which could be due to edema or pneumonitis. Physical Exam-([facility]) Physical Exam Vital Signs VS - Last 72 Hours, by Label 01/28/21 01/28/21 01/28/21 01/28/21 13:30 17:46 18:49 20:20 Temp 36.6 36.6 36.9 Pulse 80 80 85 Resp 15 17 20 B/P (MAP) 110/49 (69) 138/67 118/73 (88) Pulse Ox 93 94 95 O2 Delivery Room Air Nasal Cannula Nasal Cannula O2 Flow Rate 2.00 1.00 1.00 01/28/21 01/28/21 01/28/21 01/29/21 20:55 22:45 23:30 01:00 Temp 36.9 37.2 Pulse 102 89 86 91 Resp 20 20 B/P (MAP) 135/82 (99) 138/73 (94) Pulse Ox 94 96 O2 Delivery Room Air Room Air 01/29/21 01/29/21 01/29/21 01/29/21 03:05 07:00 08:00 08:08 Temp 37.6 37.6 Pulse 86 106 95 Resp 18 20 B/P (MAP) 126/64 (84) 134/68 (90) Pulse Ox 92 90 90 O2 Delivery Nasal Cannula Room Air Room Air O2 Flow Rate 1.00 01/29/21 11:19 Temp 37.4 Pulse 91 Resp 20 B/P (MAP) 132/68 (89) Pulse Ox 93 O2 Delivery Room Air Capillary Refill : Less Than 3 Seconds General Appearance: WD/WN, no apparent distress Respiratory: No respiratory distress, No accessory muscle use; crackles Cardiovascular: regular rate, rhythm, no murmur Gastrointestinal: normal bowel sounds, non tender, soft Extremities: no pedal edema Neurologic/Psychiatric: alert, normal mood/affect Skin: normal color, warm/dry Assessment/Plan Assessment/Plan Admission Status: Observation (1) Diarrhea due to severe acute respiratory syndrome coronavirus 2 (SARS-CoV-2) infection Status: Acute Assessment & Plan: Improving, supportive care with IVF. Given no hypoxia at this time, but findings on x-ray and cough, discussed use of monoclonal antibody to decrease risk of progression to severe disease, talked with over the phone as well and discussed the EUA nature and risks and benefits and they agree to proceed with mAB. Also discussed with Dr. Johnson, his primary Hand Laminator per family request and he strongly recommended mAB. (2) Acute kidney injury Status: Resolved Assessment & Plan: Secondary to dehydration from diarrhea. Resolved with IVF overnight. (3) Syncope Status: Acute Assessment & Plan: Suspect Due to hypotension/dehydration. Qualifiers: Qualified Codes: R55 - Syncope and collapse (4) Dehydration Status: Resolved (5) Mood disorder Status: Chronic Assessment & Plan: Home cymbalta (6) A-fib Assessment & Plan: Resume home anticoagulation and rhythm/rate medications. (7) Hypertension Status: Chronic Assessment & Plan: Low BP on admit, now in 130s, hold losartan given need to resume multiple rate medications for a fib and his FAUSTO. Qualifiers: Qualified Codes: I10 - Essential (primary) hypertension (8) DVT prophylaxis Status: Acute Assessment & Plan: Home BEENA Espinoza MD Jan 29, 2021 11:05
[2021-01-29 11:19] VITALS: BP 132/68
[2021-01-29] MEDS ORDERED: diphenhydrAMINE 50 MG/ML INJ (BENADRYL) IV PRN (12:15)
[2021-01-29] MEDS ORDERED: EPINEPHrine INJECTION 1 MG/ML AMP IM PRN (12:15)
[2021-01-29] MEDS ORDERED: BAMLANIVIMAB 700 MG/ETESEVIMAB 1,400 MG IN NS IV ONE ×3 (12:15)
[2021-01-29] MEDS ORDERED: LOPERAMIDE 2 MG (IMODIUM) TABLET ONE (14:35)
[2021-01-29] MEDS: LOPERAMIDE 2 MG (IMODIUM) TABLET PO PRN (14:38)
[2021-01-29] MEDS: ACETAMINOPHEN 325 MG TABLET PO PRN ×2 (14:38→21:02)
[2021-01-29 15:38] VITALS: BP 128/64
[2021-01-29 19:35] VITALS: BP 140/65
[2021-01-29] MEDS: meTOproloL SUCCINATE 50 MG (TOPROL XL) TAB PO SCH (20:20)
[2021-01-29] MEDS: DRONEDARONE TABLET 400 MG TABLET PO SCH (20:20)
[2021-01-29 23:24] VITALS: BP 118/66
[2021-01-30] MEDS: NS IV 1000 ML 1,000 ML IV SCH ×3 (00:59→16:19)
[2021-01-30] MEDS: ACETAMINOPHEN 325 MG TABLET PO PRN (00:59)
[2021-01-30 04:08] VITALS: BP 116/63
[2021-01-30 06:24] LABS: HEMOGLOBIN 11.2 g/dL (13.3-17.7)
[2021-01-30 06:25] LABS: MEAN PLATELET VOLUME 11.6 fL (9.0-12.2); WHITE BLOOD COUNT 3.8 10^3/uL (4.3-11.0)
[2021-01-30 06:41] LABS: CALCIUM 7.7 MG/DL (8.5-10.1)
[2021-01-30 06:45] LABS: CREATININE SERUM 0.79 MG/DL (0.60-1.30)
[2021-01-30 07:47] VITALS: BP 133/63
[2021-01-30] MEDS ORDERED: KCL 20 MEQ TAB (K-DUR) PO ONE ×2 (08:07→09:00)
[2021-01-30] MEDS ORDERED: POTASSIUM CL 10MEQ/50ML IVPB 100 ML IV ONE (08:07)
[2021-01-30] MEDS: POTASSIUM CL 10MEQ/50ML IVPB 50 ML IV SCH ×2 (08:57→09:04)
[2021-01-30] MEDS ORDERED: NON-FORMULARY MEDICATION 1 EA EA (Krill/Om-3/Dha/Epa/Phospho/Ast (Krill Oil 1,000 mg Softg PO SCH (09:00)
[2021-01-30] MEDS: APIXABAN 5 MG (ELIQUIS) TABLET PO SCH ×2 (09:05→20:09)
[2021-01-30] MEDS: MULTIVIT W/MINERALS TAB (THERAGRAN M) PO SCH (09:05)
[2021-01-30] MEDS: DULoxetine 30 MG (CYMBALTA) CAP PO SCH (09:05)
[2021-01-30] MEDS: DRONEDARONE TABLET 400 MG TABLET PO SCH ×2 (09:06→20:09)
[2021-01-30] MEDS: ZINC SULFATE 220 MG CAPSULE PO SCH (09:06)
[2021-01-30] MEDS: VITAMIN D3 25 MCG (1,000 UNITS) TABLET PO SCH (09:06)
[2021-01-30] MEDS: LOPERAMIDE 2 MG (IMODIUM) TABLET PO PRN (11:22)
[2021-01-30 11:36] VITALS: BP 125/64
--- NOTE | 2021-01-30 11:43 | Progress Note ---
Subjective Subjective/Events-last exam Afebrile, having coughing fits. Had an episode of diarrhea this morning. Focused Exam Lactate Level 01/28/21 13:40: Lactic Acid Level 1.78 Objective Exam Last Set of Vital Signs Vital Signs Date Time Temp Pulse Resp B/P (MAP) Pulse Ox O2 Delivery O2 Flow Rate FiO2 01/30/21 09:27 Nasal Cannula 1.00 01/30/21 07:47 36.9 85 18 133/63 (86) 92 Capillary Refill : Less Than 3 Seconds I&O Intake and Output 01/30/21 00:00 Intake Total 4140 ml Balance 4140 ml Intake Oral 3140 ml IV Total 1000 ml # Voids 13 # Bowel Movements 9 General: Alert, No Acute Distress Lungs: Other (decreased air movement throughout, expiratory wheezing throughout, deep breaths lead to severe coughing spells and increased work of breathing) Heart: Regular Rate Extremities: No Edema Neuro: Normal Speech Psych/Mental Status: Mood NL Results/Procedures Lab Laboratory Tests 01/30/21 05:42: White Blood Count 3.8L, Red Blood Count 3.73L, Hemoglobin 11.2L, Hematocrit 33L, Mean Corpuscular Volume 87, Mean Corpuscular Hemoglobin 30, Mean Corpuscular Hemoglobin Concent 35, Red Cell Distribution Width 13.5, Platelet Count 71L, Mean Platelet Volume 11.6, Percent Immature Platelet Fraction 5.8, Sodium Level 138, Potassium Level 3.0L, Chloride Level 105, Carbon Dioxide Level 22, Anion Gap 11, Blood Urea Nitrogen 6L, Creatinine 0.79, Estimat Glomerular Filtration Rate 101, BUN/Creatinine Ratio 8, Glucose Level 82, Calcium Level 7.7L Microbiology 01/28/21 Blood Culture - Preliminary, Resulted No growth Radiology 01/28/21 CT abd/pelvis: IMPRESSION: Fluid distention of colon without obstruction identified. Overall, no acute abnormalities identified although the liver demonstrates mildly nodular surface contour. 01/28/21 CT head: no acute findings 01/28/21 CXR: IMPRESSION: Developing interstitial and ground-glass densities in both lungs, which could be due to edema or pneumonitis. Assessment/Plan Assessment/Plan (1) Diarrhea due to severe acute respiratory syndrome coronavirus 2 (SARS-CoV-2) infection Status: Acute Assessment & Plan: 01/29- Improving, supportive care with IVF. Given no hypoxia at this time, but findings on x-ray and cough, discussed use of monoclonal antibody to decrease risk of progression to severe disease, talked with michelle r the phone as well and discussed the EUA nature and risks and benefits and they agree to proceed with mAB. Also discussed with Dr. Johnson, his primary Line Ordering Clinician per family request and he strongly recommended mAB. 01/30- diarrhea continues to improve, but now having worsening respiratory symptoms. (2) Pneumonia due to COVID-19 virus Status: Acute Assessment & Plan: In spite of monoclonal antibody yesterday, has worsening respiratory status today, will start dexamethasone and monitor closely. (3) Acute kidney injury Status: Resolved Assessment & Plan: Secondary to dehydration from diarrhea. Resolved with IVF overnight. (4) Syncope Status: Acute Assessment & Plan: Suspect Due to hypotension/dehydration. Qualifiers: Qualified Codes: R55 - Syncope and collapse (5) Dehydration Status: Resolved (6) Mood disorder Status: Chronic Assessment & Plan: Home cymbalta (7) A-fib Assessment & Plan: Resume home anticoagulation and rhythm/rate medications. (8) Hypertension Status: Chronic Assessment & Plan: Low BP on admit, now in 130s, hold losartan given need to resume multiple rate medications for a fib and his FAUSTO. Qualifiers: Qualified Codes: I10 - Essential (primary) hypertension (9) DVT prophylaxis Status: Acute Assessment & Plan: Home ROSS Espinoza MD Jan 30, 2021 11:43
[2021-01-30] MEDS: dexAMETHasone 6 MG TAB (DECADRON) PO SCH (12:58)
[2021-01-30] MEDS ORDERED: clonazePAM 0.5 MG (KlonoPIN) TAB PO PRN (13:00)
--- NOTE | 2021-01-30 14:58 | Diagnostic Imaging Report ---
INDICATION: COVID 19 positive. TIME OF EXAM: 2:30 PM Correlation is made with prior chest 01/28/2021. Changes of median sternotomy are noted. Cardiac loop recorder overlies the left chest. Extensive infiltrates have developed throughout both lungs when compared to examination 2 days earlier. Features are consistent with COVID 19 pneumonia. No effusion or pneumothorax is seen. IMPRESSION: Worsening bilateral pulmonary infiltrates consistent with pneumonia. Dictated by: Dictated on workstation # [id number]
[2021-01-30 17:00] VITALS: BP 141/67
[2021-01-30 17:03] VITALS: BP 141/67
[2021-01-30 19:39] VITALS: BP 129/79
[2021-01-30] MEDS: guaiFENesin (MUCINEX) 600 MG TAB PO SCH (20:09)
[2021-01-30] MEDS: meTOproloL SUCCINATE 50 MG (TOPROL XL) TAB PO SCH (20:09)
[2021-01-31 00:03] VITALS: BP 118/70
[2021-01-31 03:31] VITALS: BP 105/67
[2021-01-31] MEDS: dexAMETHasone 6 MG TAB (DECADRON) PO SCH (06:41)
[2021-01-31 07:31] LABS: HEMATOCRIT 39 % (40-54); HEMOGLOBIN 13.6 g/dL (13.3-17.7); MEAN CORPUSCULAR HEMOGLOBIN 30 pg (25-34); MEAN CORPUSCULAR HGB CONC 35 g/dL (32-36); MEAN CORPUSCULAR VOLUME 86 fL (80-99); MEAN PLATELET VOLUME 11.4 fL (9.0-12.2); PLATELET COUNT 145 10^3/uL (130-400); WHITE BLOOD COUNT 3.9 10^3/uL (4.3-11.0)
[2021-01-31 07:49] LABS: ALBUMIN 3.7 GM/DL (3.2-4.5); BILIRUBIN,TOTAL 1.1 MG/DL (0.1-1.0); CREATININE SERUM 0.97 MG/DL (0.60-1.30); POTASSIUM 3.3 MMOL/L (3.6-5.0); TOTAL PROTEIN 7.7 GM/DL (6.4-8.2)
[2021-01-31 07:50] VITALS: BP 107/62
--- NOTE | 2021-01-31 08:13 | Progress Note - Hospitalist ---
Subjective HPI/CC On Admission Date Seen by Provider: Jan 31, 2021 Time Seen by Provider: 11:30 Subjective/Events-last exam Patient doing well Patient ready to go home Home O2 evaluation required Answered all questions from on FaceTime Patient not requiring more than 1 L of oxygen but he appears to be very nervous about the possibility of going home Tried to reassure as best I could Review of Systems General: Fatigue Pulmonary: Dyspnea Focused Exam Lactate Level Objective Exam Vital Signs Vital Signs Date Time Temp Pulse Resp B/P (MAP) Pulse Ox O2 Delivery O2 Flow Rate FiO2 01/31/21 16:56 35.9 75 20 116/59 92 Nasal Cannula 1.00 Capillary Refill : Less Than 3 Seconds General Appearance: No Apparent Distress, WD/WN, Chronically ill, Obese Respiratory: Lungs Clear, Normal Breath Sounds Cardiovascular: Regular Rate, Rhythm Neurologic/Psychiatric: Alert, Oriented x3 Results/Procedures Lab Laboratory Tests 01/31/21 06:55 Patient resulted labs reviewed. Assessment/Plan Assessment and Plan Assess & Plan/Chief Complaint Assessment: Diarrhea from COVID-19 Dehydration Acute kidney injury Atrial fibrillation Hypoxia requiring supplemental oxygen at discharge Mood disorder Plan: Supportive [facility] O2 evaluation JACKSON SANABRIA DO Jan 31, 2021 08:13
[2021-01-31] MEDS: VITAMIN D3 25 MCG (1,000 UNITS) TABLET PO SCH (08:58)
[2021-01-31] MEDS: DULoxetine 30 MG (CYMBALTA) CAP PO SCH (08:58)
[2021-01-31] MEDS: guaiFENesin (MUCINEX) 600 MG TAB PO SCH (08:58)
[2021-01-31] MEDS: APIXABAN 5 MG (ELIQUIS) TABLET PO SCH (08:59)
[2021-01-31] MEDS: MULTIVIT W/MINERALS TAB (THERAGRAN M) PO SCH (08:59)
[2021-01-31] MEDS: DRONEDARONE TABLET 400 MG TABLET PO SCH (08:59)
[2021-01-31] MEDS: ZINC SULFATE 220 MG CAPSULE PO SCH (08:59)
[2021-01-31] MEDS ORDERED: MEGA RED KRILL PO SCH (09:00)
[2021-01-31] MEDS ORDERED: FISH OIL PO SCH (09:00)
[2021-01-31 12:00] VITALS: BP 116/59
[2021-01-31] MEDS ORDERED: CLON0.5T4 PO (13:25)
[2021-01-31] MEDS ORDERED: GUAI600T43 PO (13:25)
[2021-01-31] MEDS ORDERED: DEXA6TAB PO (13:25)
[2021-01-31 16:56] VITALS: BP 116/59
== END 2021-01-31 16:58 | disposition home or self-care (01) | DRG 177 ==
LOC: EDUNIT# 13:24 → ER FS 13:25 → 4TH 18:30 → OBSVTOIN 01-30 13:00
PROVIDERS: ADMIT Family Medicine; ATTEND Internal Medicine
DX: U07.1 COVID-19 (principal); J12.81 Pneumonia due to SARS-associated coronavirus; N17.9 Acute kidney failure, unspecified; I48.91 Unspecified atrial fibrillation; I10 Essential (primary) hypertension; K21.9 Gastro-esophageal reflux disease without esophagitis; F41.9 Anxiety disorder, unspecified; E86.0 Dehydration; R55 Syncope and collapse; F39 Unspecified mood [affective] disorder; R19.7 Diarrhea, unspecified; R09.02 Hypoxemia; Z79.899 Other long term (current) drug therapy
CPT/HCPCS: 36415; 70450; 71045; 74176; 80048; 80053; 82805; 83605; 83735; 83880; 84484; 85025; 85027; 85610; 85730; 86141; 87040; 87636; 87804; 93005; 93041; 94761; G0378

== ENCOUNTER 2021-05-20 07:16 | Day surgery (SDC) | payer BC ==
[~2021-05-20] VITALS: Ht 170.2 cm; Wt 101.0 kg
[2021-05-20] VITALS (10 sets, daily range): BP systolic 111–135; BP diastolic 72–99
[~2021-05-20 07:16] MED LIST changes: +CHOL200059 PO; +CLON0.5T4 PO; +DEXA6TAB PO; +DILT240C91 PO; +GUAI600T43 PO; +KRIL1CAP18 PO; +LOSA100T57 PO; +MULTAQ PO; +ZINC50TA11 PO
[2021-05-20] MEDS ORDERED: NS IV 1000 ML 1,000 ML IV SCH (07:45)
[2021-05-20 08:06] LABS: HEMATOCRIT 39 % (40-54); HEMOGLOBIN 13.6 g/dL (13.3-17.7); MEAN CORPUSCULAR HEMOGLOBIN 29 pg (25-34); MEAN CORPUSCULAR HGB CONC 35 g/dL (32-36); MEAN CORPUSCULAR VOLUME 84 fL (80-99); MEAN PLATELET VOLUME 9.9 fL (9.0-12.2); PLATELET COUNT 139 10^3/uL (130-400); WHITE BLOOD COUNT 4.3 10^3/uL (4.3-11.0)
[2021-05-20] MEDS ORDERED: NS IV 1000 ML 1,000 ML ONE (08:10)
[2021-05-20] MEDS ORDERED: proPOfol 200 MG/20 ML (DIPRIVAN) VIAL IV ONE (08:14)
[2021-05-20] MEDS ORDERED: MIDAZOLAM 2 MG/2 ML (VERSED) VIAL ONE (08:14)
--- NOTE | 2021-05-20 08:20 | Conscious Sedation/ASA ---
Conscious Sedation Pre-Proced Time 08:20 ASA Score 3 For ASA 3 and 4: Consider anesthesia and medical clearance. Also, for patients with a history of failed moderate sedation consider anesthesia. Airway Lungs Heart ASA score ASA 1: a normal healthy patient ASA 2: a patient with a mild systemic disease (mid diabetes, controlled hypertension, obesity x ASA 3: a patient with a severe systemic disease that limits activity (angina, COPD, prior Myocardial infarction) ASA 4: a patient with an incapacitating disease that is a constant threat to life (CHF, renal failure) ASA 5: a moribund patient not expected to survive 24 hrs. (ruptured aneurysm) ASA 6: a declared brain- patient whose organs are being harvested. For emergent operations, add the letter E after the classification Mallampati Classification Grade 3 Sedation Plan Analgesia, Amnesia, Plan communicated to team members, Discussed options with patient/fam, Discussed risks with patient/fam The patient is an appropriate candidate to undergo the planned procedure, sedation, and anesthesia. The patient immediately re-assessed prior to indication. BESSY HERNANDEZ MD May 20, 2021 08:20
[2021-05-20 08:27] LABS: ALBUMIN 3.9 GM/DL (3.2-4.5); CALCIUM 9.3 MG/DL (8.5-10.1); CREATININE SERUM 0.79 MG/DL (0.60-1.30); POTASSIUM 3.7 MMOL/L (3.6-5.0); TOTAL PROTEIN 6.9 GM/DL (6.4-8.2)
--- NOTE | 2021-05-20 08:32 | Discharge Inst-Post CATH ---
Discharge Inst-CATH/EP Problems Reviewed?: Yes Post Cardiac Cath/EP D/C Inst Follow Up/Plan Appointment with Dr. Johnson's office in 2 weeks <b>CARDIAC CATH/EP PROCEDURE DISCHARGE INSTRUCTIONS</b> ACTIVITY * Go Home directly and rest. * Limit activity of the leg (or wrist if it was used) for 7 days including aerobics, swimming, jogging, bicycling, etc. * Restrict stair-climbing for 7 days if possible, if not, climb up with your non-cath leg, then bring together on the same step. * Avoid lifting, pushing, pulling or excessive movement of the affected extremity for 7 days. * Customary sexual activity may be resumed after 2 days-use caution not to use a position that strains or causes pain to the affected extremity. * No driving for 24 hours. * NO SMOKING. * Avoid straining for bowel movements for 7 days. * Gentle walking on level ground is allowed. * Returning to work will depend on the type of procedure and the results. Your doctor will discuss this with you. CALL YOUR DOCTOR FOR ANY OF THE FOLLOWING: *If bleeding from the puncture site occurs- Apply gentle pressure to site with clean cloth and call your doctor or EMS. * If a knot or lump forms under the skin, increases in size, or causes pain. * If bruising appears to be worsening or moving further down your leg instead of disappearing. * Temperature above 101 F. CARE OF YOUR GROIN INCISION; * Bruising or purple discoloration of the skin near the puncture site is common. * You may shower only, no bathtub bathing for 5 days. Be careful to avoid slipping as your leg may feel stiff. * If a closure device was used on your femoral artery, please see the attached guide regarding care of the device and your leg. * Leave dressing on FOR 24 hours. CARE OF YOUR WRIST INCISION; * Bruising or purple discoloration of the skin near the puncture site is common. * You may shower. * DO NOT submerge wrist. * Leave dressing on FOR 24 hours. BESSY JOHNSON MD May 20, 2021 08:32
--- NOTE | 2021-05-20 08:33 | Cardioversion ---
Cardioversion PROCEDURE PHYSICIAN: Bessy Johnson DATE OF PROCEDURE: 05/20/21 DIRECT EXTERNAL ELECTRICAL CARDIOVERSION: Indications: Atrial Fibrillation with rapid ventricular rate Preoperative diagnoses: Atrial Fibrillation with rapid ventricular rate Postoperative diagnosis: Sinus rhythm, Successful Electrical Cardioversion Anesthesia: By Anesthesia services Complications: None Procedure Details: The patient was brought the laborer plumbing after informed consent was taken, all the risks and complications were explained including the risk of stroke. Electrical cardioversion was carried out with anesthesia support with propofol. 200 joules of synchronized shock was delivered through external patches which promptly restored sinus rhythm. The patient tolerated the procedure well. Conclusions: Successful electrical cardioversion in terminating atrial fibrillation Final Diagnosis: Paroxysmal atrial fibrillation Palpitation Hypertension BESSY JOHNSON MD May 20, 2021 08:33
[2021-05-20] MEDS ORDERED: LOSA100T57 PO (08:44)
== END 2021-05-20 10:00 ==
LOC: CATH 07:16 → SDC 08:59 → CATH 10:00
PROVIDERS: ATTEND Internal Medicine Cardiovascular Disease
DX: I48.0 Paroxysmal atrial fibrillation (principal); I10 Essential (primary) hypertension; E66.9 Obesity, unspecified; E78.2 Mixed hyperlipidemia; I48.19 Other persistent atrial fibrillation; I63.50 Cerebral infarction due to unspecified occlusion or stenosis of unspecified cerebral artery; G47.33 Obstructive sleep apnea (adult) (pediatric); R74.01 Elevation of levels of liver transaminase levels; F17.220 Nicotine dependence, chewing tobacco, uncomplicated; Z68.35 Body mass index [BMI] 35.0-35.9, adult; Z79.899 Other long term (current) drug therapy; Z79.01 Long term (current) use of anticoagulants; Z99.89 Dependence on other enabling machines and devices
CPT/HCPCS: 36415; 80053; 85027; 87081; 92960; 93005

== ENCOUNTER → 2021-07-01 | Outpatient (CLI) | payer BC ==
[~2021-07-01] VITALS: Ht 170 cm; Wt 99.0 kg
[~2021-07-01] MED LIST changes: +CATHETER FLUSH 10 ML SYR IVP PRN; +REGADENOSON 0.4 MG/5 ML SYR (LEXISCAN) IV ONE; +meTOprolol 5 MG/5 ML (LOPRESSOR) VIAL IV ONE
[2021-07-01 09:40] VITALS: BP 155/87
--- NOTE | 2021-07-01 12:10 | Cardiology Stress Test Report ---
Stress Test Report Date of Procedure/Referring: Date of Procedure: July 01, 2021 Dona Galindo Admitting Physician Erick Beckett MD Indications: A Fib Baseline Heart Rate: 125 Baseline Blood Pressure: Blood Pressure Systolic: 155 Blood Pressure Diastolic: 87 Baseline Vitals Vital Signs Date Time Temp Pulse Resp B/P (MAP) Pulse Ox O2 Delivery O2 Flow Rate FiO2 07/01/21 09:40 129 17 155/87 (109) Baseline EKG: Baseline EKG: A Fib Summary After explaining the procedure to the patient, he signed a consent and then brought to the stress nuclear laboratory. Patient received 0.4 mg Lexiscan for stress test, ECG, heart rate and blood pressure were monitored continuously. Resting and stress dose of radio tracer were injected, imaging was acquired and reviewed in short axis, horizontal long axis and vertical long axis views. TID: 1.14 SSS: 2 SDS: 1 EF: 58 1. Patient tolerated Lexiscan well 2. Baseline atrial fibrillation with rapid ventricular response persisted during test 3. No significant ischemia or infarction on SPECT images 4. Normal left ventricular size, ejection fraction 58%, gated images are unreliable due to underlying atrial fibrillation Copy Copies To 1: ERICK BECKETT MD, BASHAR J MD July 01, 2021 12:10
== END ==
LOC: CARD 08:45
PROVIDERS: ATTEND Physician Assistant
DX: I48.91 Unspecified atrial fibrillation (principal)
CPT/HCPCS: 78452; 93017; A9502

== ENCOUNTER → 2022-11-01 | Outpatient (CLI) | payer BC ==
[~2022-11-01] MED LIST changes: -CATHETER FLUSH 10 ML SYR IVP PRN; -LOSA100T57 PO; +LOSA100T58 PO; -REGADENOSON 0.4 MG/5 ML SYR (LEXISCAN) IV ONE; -meTOprolol 5 MG/5 ML (LOPRESSOR) VIAL IV ONE
== END ==
LOC: CARD 09:23
PROVIDERS: ATTEND Internal Medicine Cardiovascular Disease
DX: I11.9 Hypertensive heart disease without heart failure (principal); I34.0 Nonrheumatic mitral (valve) insufficiency
CPT/HCPCS: 93306